=== PATIENT | male | born 2000 | race Caucasian/White ===

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

== ENCOUNTER → 2020-10-12 | Outpatient (CLI) | payer BC, SELFPAY ==
[2020-10-15 16:09] LABS: Chlamydia By Nucleic Acid AMP Positive (Negative)
[2020-10-15 20:48] LABS: Gonococcus By Nucleic Acid AMP Negative (Negative)
== END | disposition home or self-care (01) ==
LOC: LABSPEC 16:49
PROVIDERS: PCP Family Medicine; Visit Provider Registered Nurse
DX: Z20.2 Contact with and (suspected) exposure to infections with a predominantly sexual mode of transmission (principal)
CPT/HCPCS: 87491; 87591

== ENCOUNTER 2021-05-02 02:41 | Emergency (ER) | payer BC, SELFPAY ==
[2021-05-02 02:42] VITALS: BP 130/69; PULSE 113; RESP 18; TEMP 36.4; O2SAT 99; BMI 18.2
[2021-05-02 02:56] LABS: Bedside Glucose 264 mg/dL (74-106)
[2021-05-02 03:16] LABS: Absolute Lymphocyte Count 2.36 X10^3/uL (0.83-4.51); Absolute Neutrophil Count 2.6 X10^3/uL (2.0-7.7); Basophil# 0.05 X10^3/uL; Basophil% 0.9 % (0-1); Eosinophil# 0.29 X10^3/uL; Hematocrit 42.8 % (40-54); Hemoglobin 14.8 g/dL (13.0-16.5); Lymphocyte # 2.36 X10^3/ul (0.83-4.51); Lymphocyte % 40.8 % (19-41); Mean Corp Hgb Conc 34.6 g/dL (32-36); Mean Corpuscular Hgb 28.5 pg (27.0-32.0); Mean Corpuscular Volume 82.5 fL (80-94); Mean Platelet Vol. 9.4 fl (6.2-12.0); Monocyte# 0.43 X10^3/uL; Monocyte% 7.4 % (0-10); NRBC Flagged by Analyzer 0 % (0-5); Neutrophil # 2.63 X10^3/uL (2.7-7.7); Neutrophil % 45.4 % (47-70); Platelet Count 343 K/mm3 (150-450); RBC Distribution Width CV 12.3 % (11.6-14.6); RBC Distribution Width SD 36.9 fl (35.1-43.9); Red Blood Count 5.19 M/mm3 (4.6-6.2); White Blood Count 5.8 K/mm3 (4.4-11.0)
[2021-05-02] MEDS: Haloperidol Lactate 5 MG/ML Vial IV (03:17)
[2021-05-02] MEDS: 0.9% Normal Saline 1,000 ML 999 ML IV (03:17)
[2021-05-02 03:19] VITALS: BP 96/82; PULSE 106; RESP 16; O2SAT 100
[2021-05-02 03:29] LABS: Anion Gap 7 (5-15); BUN 13 mg/dL (7-18); BUN/Creat Ratio 14.4 RATIO (10-20); Calcium,Total 9.5 mg/dL (8.5-10.1); Chloride 105 mmol/L (98-107); EST Glomerular Filtration Rate 113 mL/min (>60); Est Glom Filt Rate - Afr Amer 137 mL/min (>60); Estimated Creatinine Clearance 118.45 ml/min; Glucose 263 mg/dL (74-106); Sodium Level 139 mmol/L (136-145)
--- NOTE | 2021-05-02 04:20 | EX.ED.DYSGE1 ---
HPI History of Present Illness Chief Complaint: Nausea/Vomiting Narrative Narrative: Patient is a 21-year-old male with history of type 1 diabetes on insulin pump. He states he went out with his friend to celebrate his birthday. He states he ended up taking #6 25 mg CBD Gummies. He states he did this within an hour and then as the night went on he developed sensations of nausea and vomiting. He denies any other sick contact or ingestion. He states he is concerned that his sugar may be off as he is diabetic and has been throwing up and therefore comes to the hospital for evaluation [facility] Medical History (Updated 05/02/21 @ 04:[address] Dung Eric, DO) Diabetes type 1, controlled Home Medications glucagon (human recombinant) 1 mg injection kit 1 mg IM ONCE 03/26/17 [History Last Taken Unknown] OneTouch Ultra Test #550 ea NS 04/11/17 [Rx Last Taken Unknown] FreeStyle Bianka 10 Day [place] #1 ea NS 09/16/17 [Rx Last Taken Unknown] FreeStyle Bianka 10 Day Sensor #3 ea NS 09/16/17 [Rx Last Taken Unknown] insulin aspart U-100 100 unit/mL subcutaneous solution See Rx Instructions SC QDAY #50 ml 04/26/18 [Rx Last Taken Unknown] Allergy/AdvReac Type Severity Reaction Status Date / Time No Known Allergies Allergy Verified 05/02/21 02:45 Family History Unknown Breast cancer Diabetes Hypertension High cholesterol Skin cancer CVA (cerebral vascular accident) Social History (Updated 04/26/18 @ 16:29 by Lora Blake ALTERATIONS MANAGER, ALTERATIONS MANAGER-C) Smoking Status: Never smoker second hand exposure: No alcohol intake: never substance use type: does not use ROS ROS ED Constitutional Constitutional ED: Denies chills or fever(s) ENT ENT ED: Denies sore throat Cardiovascular Cardiovascular: Denies chest pain Respiratory/Chest Respiratory/Chest: Denies cough or dyspnea Gastrointestinal Gastrointestinal: Reports nausea and vomiting; Denies abdominal pain or diarrhea Genitourinary Genitourinary ED: Denies dysuria Musculoskeletal Musculoskeletal: Denies myalgias Integumentary Denies rash Neurologic Neurologic: Denies headache(s) Psychiatric Psychiatric: Reports anxiety; Denies suicidal ideation or suicidal thoughts Hematologic/Lymphatic Hematologic/Lymphatic: Denies easy bleeding or easy bruising EXAM Physical Exam Const Vital Signs: 05/02/21 02:42 05/02/21 03:19 05/02/21 05:15 Temperature 97.6 F L Temperature Source Temporal Pulse Rate 113 H 106 H 90 Respiratory Rate 18 16 16 Blood Pressure 130/69 H 96/82 H 92/56 L Blood Pressure Mean 89 86 Pulse Ox 99 100 96 Oxygen Delivery Method Room Air Room Air Positive well nourished and well developed General Appearance ED: well developed HEENT Reports dry mucous membranes Mouth ED: Yes dry mucous membranes Mouth: dry mucous membranes Eyes EOMs intact bilaterally Eyes Narrative: Pupils are dilated and sluggish to respond Neck supple Resp normal respiratory effort and clear to auscultation bilaterally Cardio regular rhythm Rate: tachycardic GI non-tender and non-distended GI Narrative: Abdomen soft nontender nondistended with hyperactive bowel sounds no voluntary guarding or rigidity no pulsatile mass Palpation: soft Extremity normal to inspection Neuro oriented x3 and CN's II-XII intact bilaterally Sensorium / Orientation: alert Motor Exam: strength 5/5 throughout Psych Psych Narrative: Patient has a nervous/anxious affect Mood & Affect: anxious Skin no rashes or lesions noted MDM MDM MDM Narrative Medical decision making narrative: Patient presented to the ER in no acute distress but did have changes consistent with THC toxicity as he had dilated pupils tachycardic heart rate bouts of nausea vomiting and mild anxiety. Clinically this fits with his ingestion of CBD Gummies. However as he is a type I diabetic I did elect to perform basic laboratory studies. This shows a slightly elevated blood sugar at 264 but no signs of DKA. Patient was given a liter of fluid and 5 mg of Haldol and had resolution of symptoms and therefore is safe for discharge Lab Data Attestation: I reviewed the patient's lab results. Labs: Laboratory Results - last 24 hr 05/02/21 05/02/21 05/02/21 02:45 02:48 02:48 WBC 5.8 RBC 5.19 Hgb 14.8 Hct 42.8 MCV 82.5 MCH 28.5 MCHC 34.6 RDW Std Deviation 36.9 RDW Coeff of Jb 12.3 Plt Count 343 MPV 9.4 Immature Gran % (Auto) 0.500 Neut % (Auto) 45.4 L Lymph % (Auto) 40.8 [place] % (Auto) 7.4 Eos % (Auto) 5.0 Baso % (Auto) 0.9 Absolute Neuts (auto) 2.6 Absolute Lymphs (auto) 2.36 Nucleated RBC % 0 Sodium 139 Potassium 3.0 L Chloride 105 Carbon Dioxide 27.0 Anion Gap 7 BUN 13 Creatinine 0.90 Estim Creat Clear Calc 118.45 Est GFR (MDRD) Af Amer 137 Est GFR (MDRD) Non-Af 113 BUN/Creatinine Ratio 14.4 Glucose 263 H Calcium 9.5 Acetone Level POC Glucose 264 H 05/02/21 02:48 WBC RBC Hgb Hct MCV MCH MCHC RDW Std Deviation RDW Coeff of Jb Plt Count MPV Immature Gran % (Auto) Neut % (Auto) Lymph % (Auto) [place] % (Auto) Eos % (Auto) Baso % (Auto) Absolute Neuts (auto) Absolute Lymphs (auto) Nucleated RBC % Sodium Potassium Chloride Carbon Dioxide Anion Gap BUN Creatinine Estim Creat Clear Calc Est GFR (MDRD) Af Amer Est GFR (MDRD) Non-Af BUN/Creatinine Ratio Glucose Calcium Acetone Level NEGATIVE POC Glucose Discharge Plan Triage Chief Complaint: Nausea/Vomiting ED Provider: Dung Eric Dx/Rx/DC Orders Clinical Impression: Mild tetrahydrocannabinol (THC) abuse Instructions: Understanding Synthetic Marijuana, ED Potassium-Rich Foods Prescriptions: No Action glucagon (human recombinant) [Glucagon Emergency Kit (human)] 1 mg kit 1 mg IM ONCE RF: 0 (DME) flash glucose sensor [FreeStyle Bianka 10 Day Sensor] kit See Dose Instructions .ROUTE .MEDSUPPLY Qty: 3 RF: 11 (DME) flash glucose scanning reader [FreeStyle Bianka 10 Day [place]] misc See Dose Instructions .ROUTE .MEDSUPPLY Qty: 1 RF: 0 Novolog U-100 Insulin aspart 100 unit/mL solution See Rx Instructions SC QDAY Qty: 50 RF: 11 (DME) blood sugar diagnostic [OneTouch Ultra Test] strip See Dose Instructions .ROUTE .MEDSUPPLY Qty: 550 RF: 3 Primary Care Provider: Jose Haley Referrals: Jose Haley MD [Primary Care Provider] - Activity Restrictions/Additional Instructions: Please eat potassium rich foods as your value was slightly low today and otherwise follow-up with your family doctor and return to the ER should you have any further concerns Disposition Disposition: Home, Self Care Discharge Date/Time: 05/02/21 05:16
[2021-05-02 05:15] VITALS: BP 92/56; PULSE 90; RESP 16; O2SAT 96
== END 2021-05-02 05:16 | disposition home or self-care (01) ==
PROVIDERS: Emergency Provider Emergency Medicine; PCP Family Medicine; Visit Provider Emergency Medicine
DX: F12.10 Cannabis abuse, uncomplicated (principal); E10.65 Type 1 diabetes mellitus with hyperglycemia; R11.2 Nausea with vomiting, unspecified; Z96.41 Presence of insulin pump (external) (internal)
CPT/HCPCS: 80048; 82009; 82962; 85025; 96361; 96374; 99283; J7030; A4216

== ENCOUNTER 2023-09-10 17:33 | Emergency (ER) | payer BC, SELFPAY ==
[2023-09-10 17:33] VITALS: BP 107/81; PULSE 75; RESP 16; TEMP 36.6; O2SAT 100; BMI 18.9
--- NOTE | 2023-09-10 18:03 | ED.RN ---
1801[facility] REQUIR[facility] SCREEN AT THIS TIME. I SPOKE W/ FEREMAN AND WAS TOLD SHE WILL BE ON HER WAY.
--- NOTE | 2023-09-10 18:37 | ED.RN ---
NOT CLAIMING WORKERS COMP. HE DOES NOT WANT THE PAPERWORK
--- NOTE | 2023-09-10 19:01 | EDS_ITS ---
HPI <HIPOLITO Rose - Last Filed: 09/10/23 19:06> History of Present Illness Chief Complaint: Laceration Narrative Narrative: Patient is a 23-year-old male with history of type 1 diabetes who presents to the emergency department for a laceration to the left middle finger. Patient states that he works at [employer], when he woke up today, he was not feeling well like he might be coming down with a cold or a virus. Patient is he was somewhat dizzy today. When he was cutting, he cut a piece of his finger on a knife. Tetanus vaccination unknown. Patient is here for evaluation. Patient is once he saw the blood, he did feel slightly dizzy. PFS <HIPOLITO Rose - Last Filed: 09/10/23 19:06> [facility] Medical History (Updated 09/10/23 @ 23:[address] William Castillo MD) Diabetes type 1, controlled Home Medications ?Medication ?Instructions ?Recorded ?Last Taken ?Type glucagon (human recombinant) 1 mg 1 mg IM ONCE 03/26/17 Unknown History injection kit (Glucagon Emergency Kit (human-recomb)) OneTouch Ultra Test (blood sugar #550 ea 04/11/17 Unknown Rx diagnostic) FreeStyle Bianka 10 Day [place] #1 ea 09/16/17 Unknown Rx (flash glucose scanning reader) FreeStyle Bianka 10 Day Sensor #3 ea 09/16/17 Unknown Rx (flash glucose sensor) insulin aspart U-100 100 unit/mL See Rx Instructions subcut QDAY 04/26/18 Unknown Rx subcutaneous solution (Novolog e10.9 #50 mL U-100 Insulin aspart) Allergy/AdvReac Type Severity Reaction Status Date / Time shellfish derived Allergy Intermediate Angioedema Verified 09/10/23 17:34 Family History Unknown Breast cancer Diabetes Hypertension High cholesterol Skin cancer CVA (cerebral vascular accident) Social History (Updated 04/26/18 @ 16:29 by Lora Blake NP, JUMPBASTING LINING BASTER-C) Smoking Status: Never smoker second hand exposure: No alcohol intake: never substance use type: does not use ROS <HIPOLITO Rose - Last Filed: 09/10/23 19:06> ROS ED ROS Narrative Constitutional: Negative for fever, chills, weight loss, weakness Eyes: Negative for vision loss, vision change, double vision ENT: Negative for any sore throat, ear pain, congestion Cardiovascular: Negative for any chest pain, tightness, palpitations Respiratory: Negative for any cough, sputum production, hemoptysis, dyspnea, dyspnea on exertion, orthopnea Gastrointestinal: Negative for any abdominal pain, nausea, vomiting, diarrhea, constipation, blood in stool, blood in vomit : Negative for any urinary frequency, dysuria, retention, blood in urine Muscle skeletal: Negative for any neck pain, back pain Neurological: Negative for any headache, syncope, dizziness Skin: Negative for any rashes, itching, abrasions. Positive for avulsion laceration of the left middle finger Psychiatric: Negative for any depression, anxiety, stress, suicidal ideation, homicidal ideation Hematologic: Negative for any excessive bruising, easy bleeding EXAM <HIPOLITO Rose - Last Filed: 09/10/23 19:06> Physical Exam Narrative Exam Narrative: Vital signs reviewed. Extremities: No peripheral edema, no signs of gross trauma or deformity. Active full range of motion of all extremities. Patient has a small 0.5 cm avulsion like laceration that is superficial to the radial aspect of the pad of the left middle finger. There is no deep tissue injury. Patient is full range of motion. Neuro: Cranial nerves II through XII intact, no focal neurological deficits. Skin: Clean dry and intact with no rash, purpura, petechiae, vesicles or pustules. Backs/flank: No CVA tenderness, no midline spinal tenderness, no deformity. Psych: Normal mood and affect. No SI, HI or acute psychosis. Const Vital Signs: 09/10/23 17:33 09/10/23 19:08 Temperature 98 F 98.4 F Temperature Source Temporal Pulse Rate 75 75 Respiratory Rate 16 18 Blood Pressure 107/81 H 116/65 Blood Pressure Mean 89 82 Pulse Ox 100 100 Oxygen Delivery Method Room Air <Dr. William Castillo MD - Last Filed: 09/10/23 23:08> Physical Exam Const Vital Signs: 09/10/23 17:33 09/10/23 19:08 Temperature 98 F 98.4 F Temperature Source Temporal Pulse Rate 75 75 Respiratory Rate 16 18 Blood Pressure 107/81 H 116/65 Blood Pressure Mean 89 82 Pulse Ox 100 100 Oxygen Delivery Method Room Air MDM <HIPOLITO Rose - Last Filed: 09/10/23 19:06> [facility] Treatment and Re-Evaluation :: Differential diagnosis includes however is not limited to: Hypoglycemia, tendon injury, foreign body, simple laceration, avulsion injury Patient appears to be in no obvious distress vital signs are stable. Patient presents to the emergency department after cutting himself while at work. Patient also had some dizziness today, I did speak with the patient as well as the patient's mother. They do not want to pursue Worker's Comp. today. I offered the patient IV fluids however he states he just wants to eat and to go home. Patient did have a superficial avulsion laceration to the distal tip of the left middle finger, this was cleansed, glue was placed. Tolerated well. Patient will keep the area clean and dry. Instructed return for any worsening symptoms. Stable for discharge. <Dr. William Castillo MD - Last Filed: 09/10/23 23:08> [facility] Narrative Medical decision making narrative: I have personally performed a face to face assessment of the patient and have reviewed the NABEEL Note. I performed a substantive portion of the visit including all aspects of the following. My العلي findings include: History is accidentally cut his left middle finger tip with a knife work. He felt poorly when she saw the blood but is doing okay now. His blood pressure was a little high earlier but he states he got it down, and just wants his injury treated and does not want other testing. Exam is partial-thickness 0.5 cm laceration to the left fingertip, does not require repair. Dermabonded by PA, there is good skin edge apposition and no active bleeding, no signs of infection. Medical Decison Making I think this is adequate. Patient was advised that if the Dermabond wears off early he can continue dressing it with antibiotic and a Band-Aid. Do not think it needs repaired. We updated his tetanus he is comfortable with that plan. Other additions or changes: [None] Discharge Plan Triage Chief Complaint: Laceration ED Midlevel Provider: Rehan Manzano ED Provider: William Castillo Dx/Rx/DC Orders Clinical Impression: Finger laceration, Type 1 diabetes, Immunization, tetanus-diphtheria Instructions: ED Laceration, All Closures Prescriptions: No Action glucagon (human recombinant) [Glucagon Emergency Kit (human)] 1 mg kit 1 mg IM ONCE (DME) flash glucose sensor [FreeStyle Bianka 10 Day Sensor] kit See Dose Instructions .ROUTE .MEDSUPPLY Qty: 3 11RF Dose Instruction: As directed Rx Instructions: apply to back of arm to moniter BG. change q 10 days (DME) flash glucose scanning reader [FreeStyle Bianka 10 Day [place]] misc See Dose Instructions .ROUTE .MEDSUPPLY Qty: 1 0RF Dose Instruction: As directed Rx Instructions: use to moniter BG via sensor on back og arm Novolog U-100 Insulin aspart 100 unit/mL solution See Rx Instructions SC QDAY Qty: 50 11RF Dose Instruction: uses up to 30U qd via pump SC QDAY Rx Instructions: uses up to 50 U qd via pump SC QDAY (DME) blood sugar diagnostic [OneTouch Ultra Test] strip See Dose Instructions .ROUTE .MEDSUPPLY Qty: 550 3RF Dose Instruction: As directed Rx Instructions: use with device up to 6 times daily Primary Care Provider: Jose Haley Referrals: Jose Haely MD [Primary Care Provider] - Activity Restrictions/Additional Instructions: Keep the area clean and dry. Print Language: Tajik Disposition Disposition: Home, Self Care Discharge Date/Time: 09/10/23 19:09
[2023-09-10] MEDS: Diphth,Pertuss(Acell),Tet Vac 0.5 ML Vial IM (19:02)
[2023-09-10 19:08] VITALS: BP 116/65; PULSE 75; RESP 18; TEMP 36.9; O2SAT 100
== END 2023-09-10 19:09 | disposition home or self-care (01) ==
PROVIDERS: Emergency Provider Emergency Medicine; PCP Family Medicine; Visit Provider Emergency Medicine
DX: S61.213A Laceration without foreign body of left middle finger without damage to nail, initial encounter (principal); E10.9 Type 1 diabetes mellitus without complications; W26.0XXA Contact with knife, initial encounter; Y99.0 Civilian activity done for income or pay; Z23 Encounter for immunization
CPT/HCPCS: 90471; 90715; 99282

== ENCOUNTER 2024-09-26 00:13 | Emergency (ER) | payer BC, SELFPAY ==
[2024-09-26 00:14] VITALS: BP 112/74; PULSE 102; RESP 18; TEMP 36.6; O2SAT 100; BMI 18.8
--- NOTE | 2024-09-26 00:58 | CT_ITS ---
PROCEDURE: ABDOMEN/PELVIS W IV CONT ONLY 09/26/2024 REASON FOR EXAM: FLANK/RUQ PAIN TECHNIQUE: ABDOMEN/PELVIS W IV CONT ONLY Coronal and Sagittal reconstruction series were provided. CONTRAST: Isovue 300 VOLUME: 96 mL One or more dose reduction techniques were used (e.g., Automated exposure control, adjustment of the mA and/or kV according to patient size, use of iterative reconstruction technique. RADIATION DOSE SUMMARY: CTDlvol: 18 mGy DLP: 418 mGycm COMPARISON: No FINDINGS: Clear lung bases. Normal heart size. Unremarkable liver, gallbladder, pancreas, spleen, adrenal glands,. No hydronephrosis or ureteral stone. Normal bladder. Normal prostate. No retroperitoneal or pelvic adenopathy. Nondistended bowel. Normal appendix. Moderate stool. No acute abdominal wall findings. CT/Abdomen/Pelvis W IV Cont ONLY IMPRESSION: Moderate stool. Reading Location: [place] [id number]
--- NOTE | 2024-09-26 00:58 | CT_ITS ---
PROCEDURE: ABDOMEN/PELVIS W IV CONT ONLY 09/26/2024 REASON FOR EXAM: FLANK/RUQ PAIN TECHNIQUE: ABDOMEN/PELVIS W IV CONT ONLY Coronal and Sagittal reconstruction series were provided. CONTRAST: Isovue 300 VOLUME: 96 mL One or more dose reduction techniques were used (e.g., Automated exposure control, adjustment of the mA and/or kV according to patient size, use of iterative reconstruction technique. RADIATION DOSE SUMMARY: CTDlvol: 18 mGy DLP: 418 mGycm COMPARISON: No FINDINGS: Clear lung bases. Normal heart size. Unremarkable liver, gallbladder, pancreas, spleen, adrenal glands,. No hydronephrosis or ureteral stone. Normal bladder. Normal prostate. No retroperitoneal or pelvic adenopathy. Nondistended bowel. Normal appendix. Moderate stool. No acute abdominal wall findings. CT/Abdomen/Pelvis W IV Cont ONLY IMPRESSION: Moderate stool. Reading Location: [place] [id number]
--- NOTE | 2024-09-26 00:59 | EDS_ITS ---
HPI HPI - GI History of Present Illness Chief Complaint: Abd Pain Narrative Narrative: Patient is a 24-year-old male presenting to the emergency department for right upper quadrant and right sided flank pain. Past medical history of type 1 diabetes. Patient states it has been coming and going for the past few weeks but started tonight around 10 PM. Endorses nausea with no vomiting. Denies fever, chills, chest pain, dysuria or hematuria. He does endorse some constipation as well. Denies any known trauma, does not remember doing anything to pull a muscle. Reports no history of abdominal surgeries. [facility] Medical History (Updated 09/26/24 @ 02:[address] Jenniffer Estrella MD) Diabetes type 1, controlled Home Medications ?Medication ?Instructions ?Recorded ?Last Taken ?Type OneTouch Ultra Test (blood sugar #550 ea 04/11/17 Unkn own Rx diagnostic) FreeStyle Bianka 10 Day [place] #1 ea 09/16/17 Unknown R x (flash glucose scanning reader) FreeStyle Bianka 10 Day Sensor #3 ea 09/16/17 Unknown R x (flash glucose sensor) insulin aspart U-100 100 unit/mL See Rx Instructions s ubcut QDAY 04/26/18 Unknown Rx subcutaneous solution (Novolog e10.9 #50 mL U-100 Insulin aspart) glucagon 1 mg solution for mg 09/26/24 Unknown History injection (Glucagon Emergency Kit) Allergy/AdvReac Type Severity Reaction Status Date / Time shellfish derived Allergy Intermediate Angioedema Verified 09/26/24 00:13 Family History Unknown Breast cancer Diabetes Hypertension High cholesterol Skin cancer CVA (cerebral vascular accident) Social History Smoking Status: Current every day smoker tobacco type: e-cigarettes second hand exposure: No alcohol intake: never substance use type: does not use ROS ROS ED ROS Narrative See HPI EXAM Physical Exam Narrative Exam Narrative: Vital signs: Reviewed General: Alert and oriented. No acute distress HEENT: Head is normocephalic and atraumatic, sinuses nontender, pupils equal round and reactive. Nares are patent. Oropharynx and throat exams normal. Neck: Supple without lymphadenopathy nontender Cardiovascular: Regular rate and rhythm, no murmurs. No rubs or gallops. Normal S1 and S2 Respiratory: Clear to auscultation bilaterally. No wheezes, rales, rhonchi Abdominal: Soft and mildly tender to palpation in the right upper and middle quadrant. Normal bowel sounds. No guarding or rebound. Nonsurgical abdomen. No CVA tenderness to palpation. Extremities: No tenderness. No bruising. Normal range of motion. Normal sensation. Skin: No rash or redness. Neurological: Cranial nerves II through XII are grossly intact. Normal strength and sensation. Normal cerebellar function The rest of the physical exam is unremarkable Const Vital Signs: 09/26/24 00:14 09/26/24 02:00 09/26/24 02:45 Temperature 97.9 F 98.1 F Temperature Source Temporal Pulse Rate 102 H 82 82 Respiratory Rate 18 16 18 Blood Pressure 112/74 118/60 116/66 Blood Pressure Mean 86 79 82 Pulse Ox 100 100 98 Oxygen Delivery Method Room Air Room Air MDM MDM MDM Narrative Medical decision making narrative: Patient is a 24-year-old male presenting emergency department for abdominal pain. Patient was seen and examined. Vitals are stable. He is mildly tachycardic on evaluation 1 of 2. Resting bed comfortably no acute distress. Patient offered analgesia but declined. Was amenable to antiemetic, Zofran given. Differential includes but is not limited to: Cholecystitis, appendicitis, nephrolithiasis, pyelonephritis, UTI, muscle strain CBC with no leukocytosis and a normal hemoglobin. CMP with normal liver function. Lipase within normal limits. Normal kidney function. Hyperglycemia of 365, no anion gap and a normal carbon dioxide. No evidence of DKA. Fluid bolus given. Urinalysis with glucose consistent with his type 1 diabetes and glucose here. Otherwise no evidence of infection. CT shows moderate stool but no other significant findings. Patient was updated on the findings. I recommended a high-fiber diet along with Metamucil at home to have normal bowel movements. I notified him of his hyperglycemia and he states he will give himself insulin appropriately. Patient likely has abdominal pain possibly related to his constipation versus a muscle strain. Instructed to take Motrin and Tylenol at home. Your evaluation in the Emergency Department did not reveal any acute reason for admission. However, I want to emphasize that you may be early in the course of a disease process or illness even if it is not present. For this reason you should follow-up within 24 hours for reevaluation with either your primary care physician or if necessary back here in the Emergency Department. You should return to the Emergency Department immediately if your symptoms worsen or new symptoms develop. History & Record Review Discussion w/independent historian: Patient and Significant other Lab Data Attestation: I reviewed the patient's lab results. Labs: Laboratory Results - last 24 hr 09/26/24 09/26/24 00:52 02:25 WBC 4.6 RBC 4.82 Hgb 13.6 Hct 40.1 MCV 83.2 MCH 28.2 MCHC 33.9 RDW Std Deviation 37.2 RDW Coeff of Jb 12.2 Plt Count 273 MPV 9.7 Immature Gran % (Auto) 0.200 Neut % (Auto) 38.8 L Lymph % (Auto) 39.3 [place] % (Auto) 8.1 Eos % (Auto) 11.8 H Baso % (Auto) 1.8 H Absolute Neuts (auto) 1.8 L Absolute Lymphs (auto) 1.79 Nucleated RBC % 0 Sodium 136 Potassium 3.9 Chloride 100 Carbon Dioxide 23.5 Anion Gap 12 BUN 14 Creatinine 0.85 Estim Creat Clear Calc 125.95 Est GFR (MDRD) Non-Af 124 BUN/Creatinine Ratio 16.1 Glucose 365 H Calcium 9.8 Total Bilirubin 1.10 AST 20 ALT 18 Alkaline Phosphatase 91 Total Protein 7.5 Albumin 4.7 Globulin 2.8 Albumin/Globulin Ratio 1.7 Lipase 13 Urine Color Straw Urine Clarity Clear Urine pH 6.5 Ur Specific [place] 1.010 Urine Protein 30 H Urine Glucose (UA) 1000 H Urine Ketones Negative Urine Occult Blood Negative Urine Nitrite Negative Urine Bilirubin Negative Urine Urobilinogen Normal Ur Leukocyte Esterase Negative Urine RBC 0-5 SEEN Urine WBC 0-5 SEEN Ur Squamous Epith Cells 0-5 SEEN Urine Bacteria 0 SEEN Urine Mucus 0 SEEN Radiography Diagnostic Testing: Clinical Impression(s) from Imaging Studies Abdomen/Pelvis CT 09/26/24 00:58 IMPRESSION: Moderate stool. Reading Location: [place] [id number] Discharge Plan Triage Chief Complaint: Abd Pain ED Provider: Jenniffer Estrella Dx/Rx/DC Orders Clinical Impression: Abdominal pain Instructions: Abdominal Pain Prescriptions: No Action (DME) flash glucose sensor [FreeStyle Bianka 10 Day Sensor] kit See Dose Instructions .ROUTE .MEDSUPPLY Qty: 3 11RF Dose Instruction: As directed Rx Instructions: apply to back of arm to moniter BG. change q 10 days (DME) flash glucose scanning reader [FreeStyle Bianka 10 Day [place]] [facility] [place] See Dose Instructions .ROUTE .MEDSUPPLY Qty: 1 0RF Dose Instruction: As directed Rx Instructions: use to moniter BG via sensor on back og arm Novolog U-100 Insulin aspart 100 unit/mL solution See Rx Instructions SC QDAY Qty: 50 11RF Dose Instruction: uses up to 30U qd via pump SC QDAY Rx Instructions: uses up to 50 U qd via pump SC QDAY Glucagon Emergency Kit (human) 1 mg recon soln Patient Comments: INJECT (1)ONE MG FOR INSULIN SHOCK. (DME) blood sugar diagnostic [OneTouch Ultra Test] strip See Dose Instructions .ROUTE .MEDSUPPLY Qty: 550 3RF Dose Instruction: As directed Rx Instructions: use with device up to 6 times daily Primary Care Provider: Abiodun Paredes Referrals: Jose Haley MD [Non-Staff] - 2 Days Activity Restrictions/Additional Instructions: Your evaluation in the Emergency Department did not reveal any acute reason for admission. However, I want to emphasize that you may be early in the course of a disease process or illness even if it is not present. For this reason you should follow-up within 24 hours for reevaluation with either your primary care physician or if necessary back here in the Emergency Department. You should return to the Emergency Department immediately if your symptoms worsen or new symptoms develop. Print Language: [place] Disposition Disposition: Home, Self Care Discharge Date/Time: 09/26/24 02:48
[2024-09-26 01:04] LABS: Hematocrit 40.1 % (40-54); Hemoglobin 13.6 g/dL (13.0-16.5); Immature Granulocytes Count 0.010 X10^3/uL (0.0-0.0); Mean Corp Hgb Conc 33.9 g/dL (32-36); Mean Corpuscular Volume 83.2 fL (80-94); Mean Platelet Vol. 9.7 fl (6.2-12.0); NRBC Flagged by Analyzer 0 % (0-5); Platelet Count 273 K/mm3 (150-450); RBC Distribution Width CV 12.2 % (11.6-14.6); RBC Distribution Width SD 37.2 fl (35.1-43.9); Red Blood Count 4.82 M/mm3 (4.6-6.2); White Blood Count 4.6 K/mm3 (4.4-11.0)
[2024-09-26] MEDS: 0.9% Normal Saline (1000mL) 1,000 ML 1000 ML IV (01:04)
--- OUTSIDE RECORDS SUMMARY | 2024-09-26 01:18 | XMS RPT_ITS | CCD ---
Author Organization [facility] Care Team Providers Care Web Mobile Designer Name Role Phone [place] SWEATER OPERATOR, Amada K Unavailable Unavailable [place] SWEATER OPERATOR, Amada K Unavailable Unavailable Vick FARMWORKERS, Jennifer L Unavailable Unavailable Vick FARMWORKERS, Jennifer L Unavailable Unavailable Vick FARMWORKERS, Jennifer L Unavailable Unavailable Reggie CHANG, Danielle Szymanski Primary Care Provider Danielle Paredes MD Primary Care Provider Danielle Paredes MD Primary Care Provider William Castillo Attending Unavailable Jose Haley Primary Care Unavailable Danielle Paredes MD Primary Care Provider [phone] DANIELLE PAREDES Primary Care Unavailable DESI GARCÍA Attending Unavailable Allergies Allergy Classification Reported Allergen(s) Allergy Type Date of Onset Reaction(s) Facility (1 source) Shellfish Drug allergy (disorder) 09-10-2023 [facility] Repository Medications Current Medications Medication Drug Class(es) Dates Sig (Normalized) Sig (Original) [id number] 0.3 ml EPINEPHrine 1 mg/ml auto-injector (14 sources) alpha-Adrenergic Agonist, beta-Adrenergic Agonist, Catecholamine Start: 11-29-2019 EPINEPHrine (EPIPEN 2-KELLY) 0.3 mg/0.3 mL auto-injector Indications: Allergic reaction, initial encounter Inject 0.3 mL intramuscularly as needed. 2 Each 1 11/29/2019 Active Comment on above: Inject 0.3 mL intram uscularly as needed. glucagon 3 mg nasal powder (18 sources) Antihypoglycemic Agent Start: 04-29-2022 End: 08-10-2024 glucagon (BAQSIMI) 3 mg/actuation nasal spray Indications: Type 1 diabetes mellitus without complication (HCC) Use 1 spray in the nose as needed for low blood sugar. May repeat after 15 minutes using a new device if there is no response. 2 each 2 08/10/2024 Active Start: 12-25-2020 End: 04-29-2022 glucagon (GLUCAGON EMERGENCY KIT, HUMAN,) 1 mg injection Indications: Type 1 diabetes mellitus without complication (HCC) Inject (1)one mg for insulin shock. 2 Each 1 12/25/2020 04/29/2022 Discontinued Start: 09-25-2016 End: 12-26-2024 GLUCAGON EMERGENCY 1 MG KIT Use in case of inability to swallow or unconscious with severe hypoglycemia GLUCAGON (RDNA) [id number] Lora Blake [employer]INEER[employer] Comment on above: Inject (1)one mg for insulin shock. Use 1 [place] in the n ose as needed for low blood sugar. May repeat after 15 minutes using a new device if there is no response. 3 ml insulin glargine 100 unt/ml pen injector (16 sources) Insulin Analog Start: 08-10-2024 insulin glargine (BASAGLAR KWIKPEN U-100 INSULIN) 100 unit/mL (3 mL) Indications: Type 1 diabetes mellitus without complication (HCC) Inject 28 units subcutaneously daily if insulin pump fails 15 mL 1 08/10/2024 Active Start: 04-29-2022 insulin glargi ne (BASAGLAR KWIKPEN U-100 INSULIN) 100 unit/mL (3 mL) Indications: Type 1 diabetes mellitus without complication (HCC) Inject 26 units subcutaneously daily if insulin pump fails 15 mL 1 04/29/2022 Active Start: 12-25-2020 End: 08-10-2024 insulin glargine (BASAGLAR K WIKPEN U-100 INSULIN) 100 unit/mL (3 mL) Indications: Type 1 diabetes mellitus without complication (HCC) Inject 26 units subcutaneously daily if insulin pump fails 15 mL 1 04/29/2022 08/10/2024 Discontinued Start: 11-03-2019 End: 12-25-2020 insulin glargine (BASAGLAR K WIKPEN U-100 INSULIN) 100 unit/mL (3 mL) Inject 38 units subcutaneously if insulin pump fails 15 mL 1 11/03/2019 12/25/2020 Discontinued Comment on above: Inject 26 units subc utaneously daily if insulin pump fails insulin aspart, human 100 unt/ml injectable solution (20 sources) Insulin Analogue Start: 05-03-2021 End: 08-10-2024 NOVOLOG U-100 INSULIN ASPART 100 unit/mL Indications: Type 1 diabetes mellitus without complication (HCC) Inject up to 100 units daily in insulin pump 90 mL 3 08/10/2024 Active Start: 11-03-2019 End: 12-25-2020 insulin aspart U-100 (NOVOLO G U-100 INSULIN ASPART) 100 unit/mL up to 60 units daily in insulin pump 90 mL 3 11/03/2019 12/25/2020 Discontinued Start: 06-24-2016 End: 09-24-2024 NOVOLOG 100 UNIT/ML SOLN Use s up to 30 units daily in insulin pump INSULIN ASPART [id number] Lora Blake NP Start: 06-24-2016 End: 06-24-2016 NOVOLOG 100 UNIT/ML SOLN Use 4-5 times and as needed with insulin pump. INSULIN ASPART [id number] Amada Rice CMA Start: 06-24-2016 End: 09-24-2024 NOVOLOG 100 UNIT/ML SOLN Use s up to 30 units daily in insulin pump INSULIN ASPART [id number] Lora Blake NP Start: 06-24-2016 End: 06-24-2016 NOVOLOG 100 UNIT/ML SOLN Use 4-5 times and as needed with insulin pump. INSULIN ASPART [id number] Lora Blake NP Start: 06-24-2016 NOVOLOG 100 UN IT/ML SOLN Use 4-5 times and as needed with insulin pump. INSULIN ASPART [id number] Amada Rice CMA NOVOLOG 100 UNIT /ML SOLN Use 4-5 times and as needed with insulin pump. INSULIN ASPART [id number] Dana Weaver LPN Comment on above: Inject up to 100 uni ts daily in insulin pump SUBCUTANEOUS INSULIN PUMP (MEDTRONIC MINIMED INSULIN MISC) (14 sources) SUBCUTANEOUS INS ULIN PUMP (MEDTRONIC MINIMED INSULIN MISC) Indications: Uncontrolled type 1 diabetes mellitus Active SUBCUTANEOUS INS ULIN PUMP (MEDTRONIC MINIMED INSULIN MISC) Completed/Discontinued Medications Medication Drug Class(es) Dates Sig (Normalized) Sig (Original) flash glucose scanning reader (FREESTYLE BIANKA 14 DAY READER) (1 source) Start: 11-03-2019 End: 12-25-2020 flash glucose scanning reader (FREESTYLE BIANKA 14 DAY READER) Use 4x daily and PRN, IDDM, E10.9 1 Each 11/03/2019 12/25/2020 Discontinued flash glucose sensor (FREESTYLE BIANKA 14 DAY SENSOR) kit (1 source) Start: 11-03-2019 End: 12-25-2020 flash glucose sensor (FREESTYLE BIANKA 14 DAY SENSOR) kit Use one sensor every 14 days, IDDM, E10.9 2 Each 5 11/03/2019 12/25/2020 Discontinued glucagon (GLUCAGEN) 1 mg solr (1 source) Start: 11-03-2019 End: 12-25-2020 inject 1 mg by intramuscular injection once glucagon (GLUCAGEN) 1 mg solr Inject 1 mg intramuscularly one time only for 1 dose. 1 mg 11/03/2019 12/25/2020 Discontinued Problems Active Problems Problem Classification Problem Date Documented Date Episodic/Chronic Abdominal pain (1 source) Stomach ache; Translations: [Unspecified abdominal pain] Episodic Diabetes mellitus without complication (20 sources) Type 1 diabetes mellitus; Translations: [Type 1 diabetes mellitus without complication] Onset: 05-19-2016 05-19-2016 Chronic Open wounds of extremities (1 source) Laceration without foreign body of left middle finger without damage to nail, initial encounter; Translations: [Laceration without foreign body of left middle finger without damage to nail, initial encounter] Onset: 09-24-2023 Episodic Other disorders of stomach and duodenum (1 source) Stomach problem; Translations: [Disease of stomach and duodenum, unspecified] 10-23-2022 Episodic Other non-traumatic joint disorders (1 source) Pain in right knee; Translations: [Pain in joint, lower leg] 05-07-2020 Episodic Residual codes; unclassified (3 sources) Noncompliance with treatment; Translations: [Poor compliance] Episodic Residual codes; unclassified (1 source) Influenza-like symptoms; Translations: [Other general symptoms and signs] Episodic Spondylosis; intervertebral disc disorders; other back problems (1 source) Acute low back pain; Translations: [Acute bilateral low back pain without sciatica] Episodic Unclassified (3 sources) Insertion of insulin pump; Translations: [Presence of insulin pump (external) (internal)] Onset: 05-19-2016 05-19-2016 Unclassified (1 source) Poor compliance; Translations: [Poor compliance] Onset: 08-10-2024 Past or Other Problems Problem Classification Problem Date Documented Da te Episodic/Chronic Diabetes mellitus without complication (20 sources) Presence of insulin pump (external) (internal); Translations: [Insulin pump present] Onset: 05-19-2016 05-19-2016 Episodic Results Test Name Value Interpretation Reference Range Facility CNOV 08-10-2024 CNOV Office Visit (ENDMED) JOSE CASTRO ([id number]) 00 M Date Time Provider Department 08/10/24 11:00 AM DESI GARCÍA During your visit today, we recorded the following information about you: Pulse Respiration Blood pressure Weight 88/minute 16/minute 96/60 69 kg Height 1.88 m Desi García APRN.CNP 08/10/2024 12:44 PM Signed Reason for Consultation: DM Type 1 Referring Physician: Doris Victoria APRN.STORE SALES MANAGER [address] [address] HISTORY OF PRESENT ILLNESS Mr. Castro is a 24 year old male presenting here today for a follow up of DM Type 1. As I recall, he was initially diagnosed with diabetes 2004 (age 5). LV 05/29/23 A1C today is 10.8. Down from 12.7 in 05/2023 Not using CGM --states it was falling off Needs BMV form completed today. Denies MVA due to hypoglycemia Reports an eye exam in the last. Denies retinopathy. 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 Sleep 6-7 AM to 2-3 pm. Working 10 pm to 6 AM. Current diabetes regimen is as follows: Basal insulin for back up:basaglar Glucagon: yes Novolog via Medtronic 770 pump with Guardian 3 CGM --not using CGM CGM Pump settings. 00:00= 1.20 2330=1.40 Bolus: Insulin:carb ratio 00:00= 10 1030=10 1400=8 Sensitivity 00:00= 60 Blood glucose target 00:00= 181-211 3140= 100-120 Insulin duration= 3 hr Pump download Auto mode =0% Not using his CGM Site change every 9 days Entering 0-2 BG readings daily. Mostly 0. Bolused for meals 3 times in 14 days. Most activity is in the 3 days leading up to his office visit. he is checking his blood glucose 0-2 times daily. he does bring a log book today for review. LDE Blood Sugar Frequency: 126, 107-- overnight 179, 143, 266, 178, 214, 193 during the day *8 BG readings in 14 days Hypoglycemia frequency: rare Hypoglycemia awareness: Yes Regarding symptoms of hypoglycemia, he is not experiencing any symptoms such as polyuria, polydipsia, nocturia or rapid weight loss or blurry vision, Overall, the patient has no acute complaints at this time. PAST MEDICAL HISTORY Diagnosis Date Insulin pump status 12/22/2018 Type I (juvenile type) diabetes mellitus without mention of complication, uncontrolled No past surgical history on file. FAMILY HISTORY Problem Relation Age of Onset Heart Father Hypertension Maternal Grandmother Cancer Other k Social History Tobacco Use Smoking status: Never Smokeless tobacco: Never Vaping Use Vaping status: Never Used Substance Use Topics Alcohol use: Not Currently Drug use: Never Allergies As of Date: 08/10/2024 (No Known Allergies) Fully Assessed 08/10/2024 Current Outpatient Medications Medication Sig Dispense Refill NOVOLOG U-100 INSULIN ASPART 100 unit/mL Inject up to 100 units daily in insulin pump 90 mL 3 Lancets Use as instructed 3 lancets daily, IDDM, E 10.9 400 Each 3 blood sugar diagnostic (ACCU-CHEK GUIDE TEST STRIPS) test strip Use as instructed; use 4 strips per day, IDDM, E 10.9 150 Strip 11 Insulin [place], Disposable, (BD ULTRAFINE III MINI PEN) 31 gauge x 3/16 Use one daily with insulin if insulin pump fails 50 Each 1 insulin glargine (BASAGLAR KWIKPEN U-100 INSULIN) 100 unit/mL (3 mL) Inject 26 units subcutaneously daily if insulin pump fails 15 mL 1 glucagon (BAQSIMI) 3 mg/actuation nasal spray Use 1 [place] in the nose as needed for low blood sugar. May repeat after 15 minutes using a new device if there is no response. 2 Each 2 EPINEPHrine (EPIPEN 2-KELLY) 0.3 mg/0.3 mL auto-injector Inject 0.3 mL intramuscularly as needed. (Patient not taking: Reported on 04/29/2022) 2 Each 1 SUBCUTANEOUS INSULIN PUMP (MEDTRONIC MINIMED INSULIN MISC) No current facility-administere d medications for this visit. REVIEW OF SYSTEMS Answers submitted by the patient for this visit: Core Review of Systems (Submitted on 08/10/2024) Fever : No Night sweats: No Recent unintentional weight change: No Nasal Congestion: No Hearing Loss: No Vision Disturbance: No A cough: No Difficulty Breathing?: No Chest pain: No Irregular heartbeat: No Leg Swelling: No Nausea: No Diarrhea: No Black tarry stools: No Difficulty Urinating?: No Awaken at Night More Than Once to Urinate?: No Joint pain or stiffness: No Muscle aches: No Leg or Foot Discomfort at Night?: No A rash: No Dizziness: No Headaches: No Memory Loss: No Seizures: No PHYSICAL EXAMINATION BP 96/60 Pulse 88 Resp 16 Ht 188 cm (6' 2.02) Wt 69 kg (152 lb 1.9 oz) SpO2 97% BMI 19.52 kg/m2 Physical Exam Constitutional: Appearance: Normal appearance. Cardiovascular: Rate and Rhythm: Normal rate and regular rhythm. Pulmonary: Effort: Pulmonary effort is normal. Breath sounds: Normal breath sounds. Skin: General: Skin is warm and dry. Neurological: Mental (more content not included)... Normal [facility] Bar 08-10-2024 CNPN Telephone ([employer]) JOSE CASTRO ([id number]) 00 M Date Time Provider Department 08/10/24 DESI GARCÍA ENDMED During your visit today, we recorded the following information about you: Desi García APRN.CNP 08/10/2024 12:38 PM Signed BMV form completed. Please fax to BMV. Keep a copy for EMR Thank you Katerina Crawford RN 08/11/2024 1:10 PM Signed BMV form faxed to the [facility]. Copy made and sent to scanning and another copy was made an put in our file. Closed Allergies As of Date: 08/10/2024 (No Known Allergies) Date Reviewed: 08/10/2024 Reviewed by: Desi García APRN.CNP - Fully Assessed Reason for Visit: BMV form [Other] Prescriptions as of 08/11/2024 - blood sugar diagnostic (ACCU-CHEK GUIDE TEST STRIPS) test strip Use as instructed; use 4 strips per day, IDDM, E 10.9 - glucagon (BAQSIMI) 3 mg/actuation nasal spray Use 1 spray in the nose as needed for low blood sugar. May repeat after 15 minutes using a new device if there is no response. - insulin glargine (BASAGLAR KWIKPEN U-100 INSULIN) 100 unit/mL (3 mL) Inject 28 units subcutaneously daily if insulin pump fails - Insulin [place], Disposable, (BD ULTRAFINE III MINI PEN) 31 gauge x 3/16 Use one daily with insulin if insulin pump fails - Lancets Use as instructed 3 lancets daily, IDDM, E 10.9 - NOVOLOG U-100 INSULIN ASPART 100 unit/mL Inject up to 100 units daily in insulin pump - EPINEPHrine (EPIPEN 2-KELLY) 0.3 mg/0.3 mL auto-injector Inject 0.3 mL intramuscularly as needed. - SUBCUTANEOUS INSULIN PUMP (MEDTRONIC MINIMED INSULIN MISC) Problem List As Of Date 08/10/2024 Noted Resolved Insulin pump status [Z96.41] 12/22/2018 Type 1 diabetes mellitus without complication (*11/03/2019 Encounter Status:Closed by KATERINA CRAWFORD on 08/11/24 Normal [facility] HEMOGLOBIN A1C (POC)on 08-10 HbA1c (Bld) [Mass fraction] 10.8 % Abnormal 4.3 - 5.6 % [facility] Comment on above: Location:[facility], [address] [place], [address] Point of care (POC) Hemoglobin A1c (HGBA1C) testing is intended to assess glucose control and provide a management tool for patients known to have diabetes and their healthcare providers. Target HGBA1C levels may depend on specific clinical circumstances. POC HGBA1C is not intended for use as a diagnostic or screening test; laboratory-based testing should be used for diagnostic purposes. The following information is supplemental and may not be applicable to specific diabetes management situations: The POC device back shoe operator provides a normal range of 4.2% to 6.5% for the HGBA1C POC test. However, the [place] [employer] guidelines indicate that patients with HGBA1C in the range of 5.7% to 6.4% are at increased risk for development of diabetes and that intervention by lifestyle modification may be beneficial. A HGBA1C level greater than or equal to 6.5% is considered diagnostic of diabetes, pending confirmatory testing. Use of HGBA1C testing to evaluate glucose control may not be appropriate for patients with hemoglobin variants or other conditions (e.g. anemia) that alter red blood cell lifespan. Interpretation and review of laboratory results [facility] JOSE CASTRO ([id number]) 00 M Date Time Provider Department 04/01/24 DESI GARCÍA During your visit today, we recorded the following information about you: Nerissa Ruiz MA 04/01/2024 12:18 PM Signed Form on docs desk/basket for review from: [employer] Please review and sign. Needs to be faxed to: [phone] Last office notes attached. Desi García APRN.[place] 04/01/2024 3:09 PM Signed Form signed. Thank you Jarrod Faulkner MA 04/01/2024 3:54 PM [facility]igned [facility] on April 01, [facility]24; transmission ok. Allergies As of Date: 04/01/2024 (No Known Allergies) Date Reviewed: 05/29/2023 Reviewed by: Desi García APRN.STORE SALES MANAGER - Fully Assessed Reason for Visit: Certificate of Medical Necessity [Other] Cmt: Medtronic Prescriptions as of 04/01/2024 - NOVOLOG U-100 INSULIN ASPART 100 unit/mL Inject up to 100 units daily in insulin pump - Lancets Use as instructed 3 lancets daily, IDDM, E 10.9 - blood sugar diagnostic (ACCU-CHEK GUIDE TEST STRIPS) test strip Use as instructed; use 4 strips per day, IDDM, E 10.9 - Insulin [place], Disposable, (BD ULTRAFINE III MINI PEN) 31 gauge x 3/16 Use one daily with insulin if insulin pump fails - insulin glargine (BASAGLAR KWIKPEN U-100 INSULIN) 100 unit/mL (3 mL) Inject 26 units subcutaneously daily if insulin pump fails - glucagon (BAQSIMI) 3 mg/actuation nasal spray Use 1 [place] in the nose as needed for low blood sugar. May repeat after 15 minutes using a new device if there is no response. - EPINEPHrine (EPIPEN 2-KELLY) 0.3 mg/0.3 mL auto-injector Inject 0.3 mL intramuscularly as needed. - SUBCUTANEOUS INSULIN PUMP (MEDTRONIC MINIMED INSULIN MISC) Problem List As Of Date 04/01/2024 Noted Resolved Insulin pump status [Z96.41] 12/22/2018 Type 1 diabetes mellitus without complication (*11/03/2019 Encounter Status:Closed by JARROD FAULKNER on 04/01/24 [facility] Bar 10-26-2023 RAMSEY Telephone ([employer]) JOSE CASTRO ([id number]) 00 M Date Time Provider Department 10/26/23 DESI GARCÍA During your visit today, we recorded the following information about you: Lukasz Marcano MA 10/26/2023 11:12 AM Signed Form on docs desk/basket for review from [employer]. Please review and sign. Needs to be faxed to [phone]. Attached last office notes. RX for Pump, Diabetic Supplies, and Transmitter/Sensor 4 Desi García APRN.[place] 10/27/2023 7:45 AM Signed Form signed. Thank you Lukasz Marcano MA 10/27/2023 8:07 AM Signed Form Faxed, Transmission ok CLOSED Allergies As of Date: 10/26/2023 (No Known Allergies) Date Reviewed: 05/29/2023 Reviewed by: Desi García APRN.STORE SALES MANAGER - Fully Assessed Reason for Visit: Med[employer] Form [Other] Cmt: RX for Pump, Diabetic Supplies, and Transmitter/Sensor 4 Prescriptions as of 10/27/2023 - NOVOLOG U-100 INSULIN ASPART 100 unit/mL Inject up to 100 units daily in insulin pump - Lancets Use as instructed 3 lancets daily, IDDM, E 10.9 - blood sugar diagnostic (ACCU-CHEK GUIDE TEST STRIPS) test strip Use as instructed; use 4 strips per day, IDDM, E 10.9 - Insulin [place], Disposable, (BD ULTRAFINE III MINI PEN) 31 gauge x /16 Use one daily with insulin if insulin pump fails - insulin glargine (BASAGLAR KWIKPEN U-100 INSULIN) 100 unit/mL (3 mL) Inject 26 units subcutaneously daily if insulin pump fails - glucagon (BAQSIMI) 3 mg/actuation nasal spray Use 1 [place] in the nose as needed for low blood sugar. May repeat after 15 minutes using a new device if there is no response. - EPINEPHrine (EPIPEN 2-KELLY) 0.3 mg/0.3 mL auto-injector Inject 0.3 mL intramuscularly as needed. - SUBCUTANEOUS INSULIN PUMP (MEDTRONIC MINIMED INSULIN MISC) Problem List As Of Date 10/26/2023 Noted Resolved Insulin pump status [Z96.41] 12/22/2018 Type 1 diabetes mellitus without complication (*11/03/2019 Encounter Status:Closed by LUKASZ MARCANO on 10/27/23 Normal [facility] Emergency Department Summary on 09-10-2023 Emergency Department Summary [facility] Medical Records Department [address] [place] [address] Emergency Department Summary 09/10/23 MR#: [id number] Acct: [id number] Name: JOSE CASTRO Rep #: [id number] : 2000 23 From: William Castillo MD PCP: Dr. Jose Haley MD Status:DEP ER Location: ED HPI History of Present Illness Chief Complaint: Laceration Narrative Narrative: Patient is a 23-year-old male with history of type 1 diabetes who presents to the emergency department for a laceration to the left middle finger. Patient states that he works at [employer], when he woke up today, he was not feeling well like he might be coming down with a cold or a virus. Patient is he was somewhat dizzy today. When he was cutting, he cut a piece of his finger on a knife. Tetanus vaccination unknown. Patient is here for evaluation. Patient is once he saw the blood, he did feel slightly dizzy. [facility] Medical History (Updated 09/10/23 @ 23:[address] William Castillo MD) Diabetes type 1, controlled Home Medications ???Medication ???Instructions ???Recorded ???Last Taken ???Type glucagon (human recombinant) 1 mg 1 mg IM ONCE 03/26/17 Unknown History injection kit (Glucagon Emergency Kit (human-recomb)) OneTouch Ultra Test (blood sugar #550 ea 04/11/17 Unknown Rx diagnostic) FreeStyle Bianka 10 Day [place] #1 ea 09/16/17 Unknown Rx (flash glucose scanning reader) FreeStyle Bian[place] 10 Day Sensor #3 ea 09/16/17 Unknown Rx (flash glucose sensor) insulin aspart U-100 100 unit/mL See Rx Instructions subcut QDAY 04/26/18 Unknown Rx subcutaneous solution (Novolog e10.9 #50 mL U-100 Insulin aspart) Allergy/AdvReac Type Severity Reaction Status Date / Time shellfish derived Allergy Intermediate Angioedema Verified 09/10/23 17:34 Family History Unknown Breast cancer Diabetes Hypertension High cholesterol Skin cancer CVA (cerebral vascular accident) Social History (Updated 04/26/18 @ 16:29 by Lora Blake INDUSTRIAL ENGINEERING, INDUSTRIAL ENGINEERING-C) Smoking Status: Never smoker second hand exposure: No alcohol intake: never substance use type: does not use ROS ROS ED ROS Narrative Constitutional: Negative for fever, chills, weight loss, weakness Eyes: Negative for vision loss, vision change, double vision ENT: Negative for any sore throat, ear pain, congestion Cardiovascular: Negative for any chest pain, tightness, palpitations Respiratory: Negative for any cough, sputum production, hemoptysis, dyspnea, dyspnea on exertion, orthopnea Gastrointestinal: Negative for any abdominal pain, nausea, vomiting, diarrhea, constipation, blood in stool, blood in vomit : Negative for any urinary frequency, dysuria, retention, blood in urine Muscle skeletal: Negative for any neck pain, back pain Neurological: Negative for any headache, syncope, dizziness Skin: Negative for any rashes, itching, abrasions. Positive for avulsion laceration of the left middle finger Psychiatric: Negative for any depression, anxiety, stress, suicidal ideation, homicidal ideation Hematologic: Negative for any excessive bruising, easy bleeding EXAM Physical Exam Narrative Exam Narrative: Vital signs reviewed. Extremities: No peripheral edema, no signs of gross trauma or deformity. Active full range of motion of all extremities. Patient has a small 0.5 cm avulsion like laceration that is superficial to the radial aspect of the pad of the left middle finger. There is no deep tissue injury. Patient is full range of motion. Neuro: Cranial nerves II through XII intact, no focal neurological deficits. Skin: Clean dry and intact with no rash, purpura, petechiae, vesicles or pustules. Backs/flank: No CVA tenderness, no midline spinal tenderness, no deformity. Psych: Normal mood and affect. No SI, HI or acute psychosis. Const Vital Signs: 09/10/23 17:33 09/10/23 19:08 Temperature 98 F 98.4 F Temperature Source Temporal Pulse Rate 75 75 Respiratory Rate 16 18 Blood Pressure 107/81 H 116/65 Blood Pressure Mean 89 82 Pulse Ox 100 100 Oxygen Delivery Method Room Air Physical Exam Const Vital Signs: 09/10/23 17:33 09/10/23 19:08 Temperature 98 F 98.4 F Temperature Source Temporal Pulse Rate 75 75 Respiratory Rate 16 18 Blood Pressure 107/81 H 116/65 Blood Pressure Mean 89 82 Pulse Ox 100 100 Oxygen Delivery Method Room Air MDM MDM Treatment and Re-Evaluation :: Differential diagnosis includes however is not limited to: Hypoglycemia, tendon injury, foreign body, simple laceration, avulsion injury Patient appears to be in no obvious distress vital signs are stable. Patient presents to the emergency department after cutting himself while at work. Patient al (more content not included)... Normal [facility] HEMOGLOBIN A1C (POC)on 05-28 HbA1c (Bld) [Mass fraction] 12.7 % Abnormal 4.3 - 5.6 % [facility] UA DIP, URINE (POC)on 2022 BILIRUBIN UA (POCT) Negative Negative [facility] CLARITY UA (POCT) Clear [facility] COLOR UA (POCT) Yellow [facility] GLUCOSE UA (POCT) 100 mg/dL Abnormal Negative mg/dL [facility] HEMOGLOBIN/BLOOD UA (POCT) Negative Negative [facility] KETONE UA (POCT) Negative Negative mg/dL [facility] LEUKOCYTES UA (POCT) Negative Negative [facility] NITRITE UA (POCT) Negative Negative [facility] PH UA (POCT) 6.0 4.5 - 8.0 [facility] Protein Ql (U) Trace Abnormal Negative mg/dL [facility] SPECIFIC GRAVITY UA (POCT) 1.025 1.005 - 1.030 [facility] UROBILINOGEN UA (POCT) 0.2 E.U./dL Normal E.U./dL [facility] HEMOGLOBIN A1C (POC)on 04-29 HbA1c (Bld) [Mass fraction] 10.2 % Abnormal 4.2 - 5.6 % [facility] XR Knee - right 4 Viewson IMPRESSION: No acute fracture or malalignment. Lay Up Operator: DARON Transcribe Date/Time: May 07 2020 8:47P Dictated by : KULWINDER COYLE MD This examination was interpreted and the report reviewed and electronically signed by: KULWNIDER COYLE MD on May 07 2020 8:49PM [facility] DIVISION OF RADIOLOGY * * *Final Report* * * DATE OF EXAM: May 07 2020 8:20PM WOX [id number] - XR KNEE 4V AP/PA BOTH+LAT/MANUELITO RT / PROCEDURE REASON: Acute pain of right knee * * * * Physician Interpretation * * * * Bilateral KNEE X-RAY SERIES HISTORY: Acute pain of right knee TECHNIQUE: 4 views of the right knee and 3 views of the left knee COMPARISON: None available. RESULT: No fracture, dislocation or destructive changes. Joint spaces and articular surfaces are preserved. DIVISION OF RADIOLOGY Provider, [facility] - 05/07/2020 * * *Final Report* * * DATE OF EXAM: May 07 2020 8:20PM WOX [id number] - XR KNEE 4V AP/PA BOTH+LAT/MANUELITO RT / PROCEDURE REASON: Acute pain of right knee * * * * Physician Interpretation * * * * Bilateral KNEE X-RAY SERIES HISTORY: Acute pain of right knee TECHNIQUE: 4 views of the right knee and 3 views of the left knee COMPARISON: None available. RESULT: No fracture, dislocation or destructive changes. Joint spaces and articular surfaces are preserved. IMPRESSION IMPRESSION: No acute fracture or malalignment. Lay [facility] Transcribe Date/Time: May 07 2020 8:47P Dictated by : KULWINDER COYLE MD This examination was interpreted and the report reviewed and electronically signed by: KULWINDER COYLE MD on May 07 2020 8:49PM [facility] Radiology Study observation (narrative) [facility] XR Knee - right 4 ViewsOrder ed By: [facility] Provider on 05-07-2020 [facility] Office Visiton 09-25-2016 Protein mass conc Done [facility] Work Phone: Office Visit: Transition of care- [facility] 05-19-2016 Adolescent depression screening assessment Adolescent depression screening assessment Invalid Interpretation Code [facility] Work Phone: Adult depression screening assessment Adolescent depression screening assessment [facility] Work Phone: Documentation of current medications (procedure) Done Invalid Interpretation Code [facility] Work Phone: Fall risk assessment No [facility] Work Phone: Protein mass conc Done [facility] Work Phone: Tobacco smoking status NHIS Never [facility] Work Phone: Tobacco smoking status TXIS Never smoker [facility] Work Phone: Tobacco use [facility] Never smoker Invalid Interpretation Code [facility] Work Phone: Chart Maintenanceon 06-21-19 16 Cholesterol 183 mg/dL [facility] Work Phone: HbA1c 11.5 % [facility] Work Phone: HDL Cholesterol 64 mg/dL [facility] Work Phone: LDL Cholesterol 103 mg/dL [facility] Work Phone: Thyroid stimulating hormone (TSH) 1.530 u[iU]/mL [facility] Work Phone: Triglyceride 78 mg/dL [facility] Work Phone: Vital Signs Date Time Vital Sign Value Performing Clinician Facility 08-10-2024 11:05-0400 Body height 188 cm [facility] HADOOP ADMINISTRATOR.[employer] Work Phone: [facility] 08-10-2024 11:05-0400 Body mass index (BMI) [Ratio] 19.52 kg/m2 [facility] HADOOP ADMINISTRATOR.STORE SALES MANAGER Work Phone: [facility] 08-10-2024 11:05-0400 Body weight 69 kg [facility] HADOOP ADMINISTRATOR.STORE SALES MANAGER Work Phone: [facility] 08-10-2024 11:05-0400 Diastolic blood pressure 60 mm[Hg] [facility] HADOOP ADMINISTRATOR.STORE SALES MANAGER Work Phone: [facility] 08-10-2024 11:05-0400 Heart rate 88 /min [facility] HADOOP ADMINISTRATOR.STORE SALES MANAGER Work Phone: [facility] 06-25-2025 11:05-0400 Respiratory rate 16 /min Desi Kupiec HADOOP ADMINISTRATOR.STORE SALES MANAGER Work Phone: [facility] 08-10-2024 11:05-0400 SaO2% (BldA) [Mass fraction] 97 % Desi Kupiec HADOOP ADMINISTRATOR.STORE SALES MANAGER Work Phone: [facility] 08-10-2024 11:05-0400 Systolic blood pressure 96 mm[Hg] Desi Kupiec HADOOP ADMINISTRATOR.STORE SALES MANAGER Work Phone: [facility] 05-29-2023 10:53-0400 [facility]MIN[facility].STORE SALES MANAGER Work Phone: [facility] 05-29-2023 10:53-0400 Body weight 65.8 [facility] HAD[facility] ADMINISTRATOR.STORE SALES MANAGER Work Phone: [facility] 05-29-2023 10:53-0400 Diastolic blood pressure 74 mm[Hg] Desi Kupiec HADOOP ADMINISTRATOR.STORE SALES MANAGER Work Phone: [facility] 05-29-2023 10:53-0400 Heart rate 105 /min Desi Kupiec HADOOP ADMINISTRATOR.STORE SALES MANAGER Work Phone: [facility] 05-29-2023 10:53-0400 Respiratory rate 16 /[facility] HADOOP ADMINISTRATOR.STORE SALES MANAGER Work Phone: [facility] 05-29-2023 10:53-0400 SaO2% (BldA) [Mass fraction] 99 % [facility] HADOOP ADMINISTRATOR.STORE SALES MANAGER Work Phone: [facility] 05-29-2023 10:53-0400 Systolic blood pressure 108 mm[Hg] Desi Kupiec HADOOP ADMINISTRATOR.STORE SALES MANAGER Work Phone: [facility] 10-23-2022 07:15-0400 Body temperature 96.91 [degF] Abdirahman Willis HADOOP ADMINISTRATOR.STORE SALES MANAGER Work Phone: [facility] 10-23-2022 07:15-0400 Body weight 64.5 kg Abdirahman Lazaro HADOOP ADMINISTRATOR.STORE SALES MANAGER Work Phone: [facility] 10-23-2022 07:15-0400 Diastolic blood pressure 74 mm[Hg] Abdirahman Lazaro HADOOP ADMINISTRATOR.STORE SALES MANAGER Work Phone: [facility] 10-23-2022 07:15-0400 Heart rate 100 /min Abdirahman Lazaro HADOOP ADMINISTRATOR.STORE SALES MANAGER Work Phone: [facility] 10-23-2022 07:15-0400 Respiratory rate 21 /min Abdirahman Lazaro HADOOP ADMINISTRATOR.STORE SALES MANAGER Work Phone: [facility] 10-23-2022 07:15-0400 SaO2% (BldA) [Mass fraction] 100 % Abdirahman Lazaro HADOOP ADMINISTRATOR.STORE SALES MANAGER Work Phone: [facility] 10-23-2022 07:15-0400 Systolic blood pressure 104 mm[Hg] Abdirahman Lazaro HADOOP ADMINISTRATOR.STORE SALES MANAGER Work Phone: [facility] 05-06-2022 11:35-0400 Body temperature 97.81 [degF] Alina Praisler-Wood HADOOP ADMINISTRATOR.STORE SALES MANAGER Work Phone: [facility] 05-06-2022 11:35-0400 Body weight 66.95 kg Alina Praisler-Wood HADOOP ADMINISTRATOR.STORE SALES MANAGER Work Phone: [facility] 05-06-2022 11:35-0400 Diastolic blood pressure 62 mm[Hg] Alina Praisler-Wood HADOOP ADMINISTRATOR.STORE SALES MANAGER Work Phone: [facility] 05-06-2022 11:35-0400 Heart rate 98 /min Alina Praisler-Wood HADOOP ADMINISTRATOR.STORE SALES MANAGER Work Phone: [facility] 05-06-2022 11:35-0400 Respiratory rate 18 /min Alina Praisler-Wood HADOOP ADMINISTRATOR.STORE SALES MANAGER Work Phone: [facility] 05-06-2022 11:35-0400 SaO2% (BldA) [Mass fraction] 99 % Alina Praisler-Wood HADOOP ADMINISTRATOR.STORE SALES MANAGER Work Phone: [facility] 05-06-2022 11:35-0400 Systolic blood pressure 116 mm[Hg] Alina TerrellDavid HADOOP ADMINISTRATOR.STORE SALES MANAGER Work Phone: [facility] 04-29-2022 13:02-0400 Body height 188 cm [facility] HADOOP ADMINISTRATOR.STORE SALES MANAGER Work Phone: [facility] 04-29-2022 13:02-0400 Body weight 67.77 kg [facility] HADOOP ADMINISTRATOR.STORE SALES MANAGER Work Phone: [facility] 04-29-2022 13:02-0400 Diastolic blood pressure 68 mm[Hg] [facility] HADOOP ADMINISTRATOR.STORE SALES MANAGER Work Phone: [facility] 04-29-2022 13:02-0400 Heart rate 93 /min [facility] HADOOP ADMINISTRATOR.[employer] Work Phone: [facility] 04-29-2022 13:02-0400 SaO2% (BldA) [Mass fraction] 100 % [facility] HADOOP ADMINISTRATOR.STORE SALES MANAGER Work Phone: [facility] 04-29-2022 13:02-0400 Systolic blood pressure 104 mm[Hg] [facility] HADOOP ADMINISTRATOR.STORE SALES MANAGER Work Phone: [facility] 07-05-2021 09:32-0400 Body height 184.2 cm [facility] HADOOP ADMINISTRATOR.[employer] Work Phone: [facility] 07-05-2021 09:32-0400 Body weight 65.68 kg [facility] HADOOP ADMINISTRATOR.STORE SALES MANAGER Work Phone: [facility] 07-05-2021 09:32-0400 Diastolic blood pressure 65 mm[Hg] [facility] HADOOP ADMINISTRATOR.STORE SALES MANAGER Work Phone: [facility] 07-05-2021 09:32-0400 Heart rate 110 /min [facility] HADOOP ADMINISTRATOR.STORE SALES MANAGER Work Phone: [facility] 07-05-2021 09:32-0400 SaO2% (BldA) [Mass fraction] 98 % Desialysa Blair HADOOP ADMINISTRATOR.STORE SALES MANAGER Work Phone: [facility] 07-05-2021 09:32-0400 Systolic blood pressure 95 mm[Hg] Desi Blair HADOOP ADMINISTRATOR.STORE SALES MANAGER Work Phone: [facility] 09-25-2016 15:20-0400 BMI (Body Mass Index) 21.06 kg/m2 Jennifer Hickman LPN [facility] Work Phone: 09-25-2016 15:20-0400 Body Temperature 98.5 [degF] Jennifer Hickman LPN [facility] Work Phone: 09-25-2016 15:20-0400 BP Diastolic 68 mm[Hg] Jennifer Hickman LPN [facility] Work Phone: 09-25-2016 15:20-0400 BP Systolic 102 mm[Hg] Jennifer Hickman LPN [facility] Work Phone: 09-25-2016 15:20-0400 Height 180.34 cm Jennifer Hickman LPN [facility] Work Phone: 09-25-2016 15:20-0400 Pulse (Heart Rate) 97 /min Jennifer Hickman LPN [facility] Work Phone: 09-25-2016 15:20-0400 Respiratory Rate 18 /min Jennifer Hickman LPN [facility] Work Phone: 09-25-2016 15:20-0400 Weight 68.49 kg Jennifer Hickman LPN [facility] Work Phone: 05-19-2016 15:29-0400 BMI (Body Mass Index) 21.11 kg/m2 Amada Rice SWEATER OPERATOR [facility] Work Phone: 05-19-2016 15:29-0400 Body Temperature 98.1 [degF] Amada Rice SWEATER OPERATOR [facility] Work Phone: 05-19-2016 15:29-0400 BP Diastolic 68 mm[Hg] Amada Rice CMA [facility] Work Phone: 05-19-2016 15:29-0400 BP Systolic 102 mm[Hg] Amada Rice CMA [facility] Work Phone: 05-19-2016 15:29-0400 Height 180.34 cm Amada Rice CMA [facility] Work Phone: 05-19-2016 15:29-0400 Pulse (Heart Rate) 90 /min Amada Rice CMA [facility] Work Phone: 05-19-2016 15:29-0400 Pulse Oximetry 99 % Amada Rice CMA [facility] Work Phone: 05-19-2016 15:29-0400 Respiratory Rate 16 /min [facility] Work Phone: 05-19-2016 15:29-0400 Weight 68.68 kg Amada Rice CMA [facility] Work Phone: 05-19-2016 15:29-0400 Weight 68.67 kg [facility] Work Phone: Encounters Encounter Date Encounter Type Care Provider Facility Start: 08-10-2024 End: 08-11-2024 Telephone encounter Desi García APRN.STORE SALES MANAGER Work Phone: Endocrinology Comment on above: BMV form Start: 08-10-2024 End: 08-10-2024 ambulatory DANIELLE Mckoy VIOLA Facility:[facility] Start: 08-10-2024 End: 08-10-2024 Patient encounter procedure Desi García APRN.STORE SALES MANAGER Work Phone: Endocrinology Comment on above: Type 1 diabetes jackelin itus without complication (HCC) (Primary Dx); Insulin pump status; Poor compliance Start: 04-01-2024 End: 04-01-2024 Telephone encounter Desi García HADOOP ADMINISTRATOR.STORE SALES MANAGER Work Phone: Endocrinology Comment on above: Certificate of Medic al Necessity (Medtronic) Start: 10-26-2023 End: 10-27-2023 Telephone encounter Desi García HADOOP ADMINISTRATOR.STORE SALES MANAGER Work Phone: Endocrinology Comment on above: Medtr[employer] Form (RX f or Pump, Diabetic Supplies, and Transmitter/Sensor 4) Start: 09-10-2023 End: 09-10-2023 Emergency department patient visit [facility] Facility:[facility] Start: 05-29-2023 End: 05-29-2023 Patient encounter procedure Desifatmata García HADOOP ADMINISTRATOR.STORE SALES MANAGER Work Phone: Endocrinology Comment on above: Type 1 diabetes jackelin itus without complication (HCC) (Primary Dx); Insulin pump status; Poor compliance Start: 05-06-2023 Telephone encounter Desi tobin HADOOP ADMINISTRATOR.STORE SALES MANAGER Work Phone: Endocrinology Comment on above: [employer]TR[employer] FORM Start: 10-23-2022 End: 10-23-2022 Patient encounter procedure Abdirahman Lazaro HADOOP ADMINISTRATOR.STORE SALES MANAGER Work Phone: [facility] Comment on above: Stomach problems (Pr imary Dx) Start: 05-07-2022 Telephone encounter Aranza ALEMAN Work Phone: [facility] Comment on above: Results Start: 05-06-2022 End: 05-06-2022 Patient encounter procedure Alina Tyler HADOOP ADMINISTRATOR.STORE SALES MANAGER Work Phone: [facility] Comment on above: Stomach pain (Primar y Dx); Flu-like symptoms; Acute bilateral low back pain without sciatica Start: 2022 Telephone encounter Desi tobin HADOOP ADMINISTRATOR.STORE SALES MANAGER Work Phone: Endocrinology Comment on above: Forms Start: 04-29-2022 End: 04-29-2022 Patient encounter procedure Desi García HADOOP ADMINISTRATOR.STORE SALES MANAGER Work Phone: Endocrinology Comment on above: Type 1 diabetes jackelin itus without complication (HCC) (Primary Dx); Insulin pump status; Poor compliance Start: 03-13-2022 Telephone encounter Desi tobin HADOOP ADMINISTRATOR.STORE SALES MANAGER Work Phone: Endocrinology Comment on above: HCP form ([employer]) Start: 07-05-2021 End: 07-05-2021 Patient encounter procedure Desi García HADOOP ADMINISTRATOR.STORE SALES MANAGER Work Phone: Endocrinology Comment on above: Type 1 diabetes jackelin itus without complication (HCC) (Primary Dx); Insulin pump status Start: 05-07-2020 End: 05-07-2020 Subsequent hospital visit by physician Raheem [facility] Work Phone: Radiology Comment on above: Acute pain of right knee [M25.561] Procedures Date Procedure Procedure Detail Performing Clinician Start: 08-10-2024 Hemoglobin A1c/Hemoglobin.total in Blood Desi García HADOOP ADMINISTRATOR.STORE SALES MANAGER Work Phone: Start: 05-29-2023 Hemoglobin A1c/Hemoglobin.total in Blood Desi García HADOOP ADMINISTRATOR.STORE SALES MANAGER Work Phone: Start: 05-06-2022 Urnls dip stick/tabl et rgnt auto w/o microscopy Alina Tyler HADOOP ADMINISTRATOR.STORE SALES MANAGER Work Phone: Start: 04-29-2022 Hemoglobin A1c/Hemoglobin.total in Blood Desi García HADOOP ADMINISTRATOR.STORE SALES MANAGER Work Phone: Start: 05-07-2020 Radiologic exam knee complete 4/more views Davon Bryant MD Work Phone: Plan of Treatment Date Care Activity Detail Author Start: 09-09-2033 Urine microalbumin profile DTaP,Tdap,Td Vaccine (8 - Td or Tdap) [facility] Start: 11-17-2024 End: 11-17-2024 Patient encounter procedure 11/17/2024 2:15 PM EDT Office Visit Endocrinology [address] [id number] Desi García APRN.STORE SALES MANAGER [address] [address] 3 month follow up Endocrinology Comment on above: 3 month follow up Start: 11-10-2024 Hemoglobin A1c measurement HbA1C [facility] Start: 10-17-2024 Influenza vaccination Influenz a Vaccine (Season Ended) [facility] Start: 08-11-2024 End: 11-10-2024 Comprehensive metabolic 2000 panel - Serum or Plasma COMPREHENSIVE METABOLIC PANEL Lab Routine Type 1 diabetes mellitus without complication (HCC) Expected: 08/11/2024 (Approximate), Expires: 11/10/2024 [facility] Work Phone: Comment on above: Expected: 08/11/2024 (Approximate), Expires: 11/10/2024 Start: 08-11-2024 End: 11-10-2024 Lipid 1996 panel - Serum or Plasma LIPID PANEL, FASTING Lab Routine Type 1 diabetes mellitus without complication (HCC) Expected: 08/11/2024 (Approximate), Expires: 11/10/2024 [facility] Comment on above: Expected: 08/11/2024 (Approximate), Expires: 11/10/2024 Start: 08-11-2024 End: 11-10-2024 Microalbumin/Creatinine [Mass Ratio] in Urine ALBUMIN/CREATININE RATIO, URINE Lab Routine Type 1 diabetes mellitus without complication (HCC) Expected: 08/11/2024 (Approximate), Expires: 11/10/2024 [facility] Comment on above: Expected: 08/11/2024 (Approximate), Expires: 11/10/2024 Start: 08-11-2024 End: 11-10-2024 Thyrotropin [Units/volume] in Serum or Plasma THYROID STIMULATING HORMONE Lab Routine Type 1 diabetes mellitus without complication (HCC) Expected: 08/11/2024 (Approximate), Expires: 11/10/2024 [facility] Comment on above: Expected: 08/11/2024 (Approximate), Expires: 11/10/2024 Start: 10-18-2023 Covid-19 Vaccine ( season) Covid-19 Vaccine () [facility] Start: 10-18-2023 Covid-19 Vaccine ( season) Covid-19 Vaccine () [facility] Start: 10-18-2023 Influenza vaccination [facility] Start: 08-28-2023 Hemoglobin A1c measurement HbA1C [facility] Start: 06-01-2023 End: 08-31-2023 Comprehensive metabolic 2000 panel - Serum or Plasma COMPREHENSIVE METABOLIC PANEL Lab Routine Type 1 diabetes mellitus without complication (HCC) Expected: 06/01/2023 (Approximate), Expires: 08/31/2023 [facility] Work Phone: Comment on above: Expected: 06/01/2023 (Approximate), Expires: 08/31/2023 Start: 06-01-2023 End: 08-31-2023 LIPID PANEL, NONFASTING LIPID PANEL, NONFASTING Lab Routine Type 1 diabetes mellitus without complication (HCC) Expected: 06/01/2023 (Approximate), Expires: 08/31/2023 [facility] Work Phone: Comment on above: Expected: 06/01/2023 (Approximate), Expires: 08/31/2023 Start: 06-01-2023 End: 08-31-2023 Microalbumin/Creatinine [Mass Ratio] in Urine ALBUMIN/CREATININE RATIO, URINE Lab Routine Type 1 diabetes mellitus without complication (HCC) Expected: 06/01/2023 (Approximate), Expires: 08/31/2023 [facility] Work Phone: Comment on above: Expected: 06/01/2023 (Approximate), Expires: 08/31/2023 Start: 06-01-2023 End: 08-31-2023 Thyrotropin [Units/volume] in Serum or Plasma THYROID STIMULATING HORMONE Lab Routine Type 1 diabetes mellitus without complication (HCC) Expected: 06/01/2023 (Approximate), Expires: 08/31/2023 [facility] Work Phone: Comment on above: Expected: 06/01/2023 (Approximate), Expires: 08/31/2023 Start: 05-07-2023 Hepatitis B screening URINE ALBUMIN:CREATININE RATIO [facility] Start: 05-07-2023 Hepatitis B surface antibody level LDL CHOLESTEROL [facility] Start: 04-30-2023 3 comp foot exam completed DIABETIC FOOT EXAM [facility] Start: 04-30-2023 Diabetic foot examination Diabetic Foot Exam [facility] Start: 02-16-2023 Behavioral Health Screening Behavioral Health Screening [facility] Start: 02-16-2023 Depression Assessment Depression Ass essment [facility] Start: 10-17-2022 Covid-19 Vaccine () Covid-19 Vaccine () [facility] Start: 10-17-2022 Influenza vaccination [facility] Start: 08-25-2022 Urine microalbumin profile [facility] Start: 07-30-2022 Hemoglobin A1c measurement HbA1C [facility] Start: 07-30-2022 Hemoglobin A1c/Hemoglobin.total in Blood HBA1C [facility] Start: 05-06-2022 End: 07-06-2022 ALBUMIN/CREAT RATIO RND UR ALBUMIN/CREAT RATIO RND UR Lab Routine Type 1 diabetes mellitus without complication (HCC) Expected: 05/06/2022 (Approximate), Expires: 07/06/2022 [facility] Work Phone: Comment on above: Expected: 05/06/2022 (Approximate), Expires: 07/06/2022 Start: 05-06-2022 End: 07-06-2022 Comprehensive metabolic 2000 panel - Serum or Plasma COMP METABOLIC PANEL Lab Routine Type 1 diabetes mellitus without complication (HCC) Expected: 05/06/2022 (Approximate), Expires: 07/06/2022 [facility] Work Phone: Comment on above: Expected: 05/06/2022 (Approximate), Expires: 07/06/2022 Start: 05-06-2022 End: 07-06-2022 Lipid 1996 panel - Serum or Plasma LIPID PANEL BASIC Lab Routine Type 1 diabetes mellitus without complication (HCC) Expected: 05/06/2022 (Approximate), Expires: 07/06/2022 [facility] Work Phone: Comment on above: Expected: 05/06/2022 (Approximate), Expires: 07/06/2022 Start: 05-06-2022 End: 07-06-2022 Thyrotropin [Units/volume] in Serum or Plasma TSH BLD Lab Routine Type 1 diabetes mellitus without complication (HCC) Expected: 05/06/2022 (Approximate), Expires: 07/06/2022 [facility] Work Phone: Comment on above: Expected: 05/06/2022 (Approximate), Expires: 07/06/2022 Start: 02-16-2022 DEPRESSION ASSESSMENT DEPRESSION ASS ESSMENT [facility] Start: 12-25-2021 3 comp foot exam completed DIABETIC FOOT EXAM [facility] Start: 10-17-2021 Influenza vaccination INFLUENZA (#1) [facility] Start: 09-04-2021 COVID-19 VACCINE (3 - Booster for Pfizer series) COVID-19 VACCINE (3 - Booster for Pfizer series) [facility] Start: 08-03-2021 Hemoglobin A1c/Hemoglobin.total in Blood HBA1C [facility] Start: 07-10-2021 End: 09-09-2021 ALBUMIN/CREAT RATIO RND UR ALBUMIN/CREAT RATIO RND UR Lab Routine Type 1 diabetes mellitus without complication (HCC) Expected: 07/10/2021 (Approximate), Expires: 09/09/2021 [facility] Work Phone: Comment on above: Expected: 07/10/2021 (Approximate), Expires: 09/09/2021 Start: 07-10-2021 End: 09-09-2021 Comprehensive metabolic 2000 panel - Serum or Plasma COMP METABOLIC PANEL Lab Routine Type 1 diabetes mellitus without complication (HCC) Expected: 07/10/2021 (Approximate), Expires: 09/09/2021 [facility] Work Phone: Comment on above: Expected: 07/10/2021 (Approximate), Expires: 09/09/2021 Start: 07-10-2021 End: 09-09-2021 LIPID PANEL BASIC LIPID PANEL BASIC Lab Routine Type 1 diabetes mellitus without complication (HCC) Expected: 07/10/2021 (Approximate), Expires: 09/09/2021 [facility] Work Phone: Comment on above: Expected: 07/10/2021 (Approximate), Expires: 09/09/2021 Start: 07-10-2021 End: 09-09-2021 Thyrotropin [Units/volume] in Serum or Plasma TSH BLD Lab Routine Type 1 diabetes mellitus without complication (HCC) Expected: 07/10/2021 (Approximate), Expires: 09/09/2021 [facility] Work Phone: Comment on above: Expected: 07/10/2021 (Approximate), Expires: 09/09/2021 Start: 06-02-2021 COVID-19 VACCINE (3 - Booster for Pfizer series) COVID-19 VACCINE (3 - Booster for Pfizer series) [facility] Start: 06-02-2021 COVID-19 VACCINE (3 - Pfizer series) COVID-19 VACCINE (3 - Pfizer series) [facility] Start: 09-23-2019 Hepatitis B screening URINE ALBUMIN:CREATININE RATIO [facility] Start: 09-23-2019 Hepatitis B surface antibody level LDL CHOLESTEROL [facility] Start: 2018 ANNUAL PCP TEAM WIRELESS STORE MANAGER KATYA DISEASE VISIT ANNUAL PCP TEAM CHRONIC DISEASE VISIT [facility] Start: 2018 Anxiety Screening Anxiety Screening [facility] Start: 2018 [facility] 2018 HEPATITIS C SCREENING HEPATITIS C [facility] Start: 2018 Hepatitis C screening Hepatitis C [facility] Start: 2018 HIV SCREENING HIV SCREENING [facility] Start: 2018 HIV screening HIV Screening [facility] Start: 09-25-2016 End: 09-25-2016 Appointment Appointment [facility] Work Phone: Start: 09-25-2016 End: 09-25-2016 *CMP Complete Metabolic Panel *CMP Complete Metabolic Panel [facility] Work Phone: Start: 09-25-2016 End: 09-25-2016 *Microalbumin, Creatine Ratio, rand urine *Microalbumin, Creatine Ratio, rand urine [facility] Work Phone: Start: 09-25-2016 End: 09-25-2016 Hemoglobin A1c/Hemoglobin.total mass fraction (Bld) *HgA1C [facility] Work Phone: Start: 05-19-2016 End: 05-19-2016 *CMP Complete Metabolic Panel *CMP Complete Metabolic Panel [facility] Work Phone: Start: 05-19-2016 End: 05-19-2016 *Microalbumin, Creatine Ratio, rand urine *Microalbumin, Creatine Ratio, rand urine [facility] Work Phone: Start: 05-19-2016 End: 05-19-2016 HbA1c *HgA1C [facility] Work Phone: Start: 05-19-2016 End: 05-19-2016 Lipid panel [AGGREGATE] *Lipid Profile [facility] Work Phone: Start: 2016 Meningococcal B Vacc ine (1 of 2 - Standard) Meningococcal B Vaccine (1 of 2 - Standard) [facility] Start: 2016 Meningococcal B Vaccine: Consider Based On Risk (1 of 2 - Patient Seeks Protection) Meningococcal B Vaccine: Consider Based On Risk (1 of 2 - Patient Seeks Protection) [facility] Start: 2016 MENINGOCOCCAL B: Consider based on risk (1 of 2 - Patient Seeks Protection) MENINGOCOCCAL B: Consider based on risk (1 of 2 - Patient Seeks Protection) [facility] Start: 2016 ONE PNEUMOVAX PRIOR TO AGE 65 ONE PNEUMOVAX PRIOR TO AGE 65 [facility] Start: 05-02-2015 HPV Vaccine (1 - Mal e 3-dose series) HPV Vaccine (1 - Male 3-dose series) [facility] Start: 2014 PEDS TO ADULT TRANSITION ANNUAL ASSESSMENT PEDS TO ADULT TRANSITION ANNUAL ASSESSMENT [facility] Start: 2012 Adult depression screening assessment DEPRESSION SCREENING [facility] Start: 2012 PEDS TO ADULT TRANSITION INITIAL DISCUSSION PEDS TO ADULT TRANSITION INITIAL DISCUSSION [facility] Start: 05-02-2011 HPV VACCINE (1 - Mal e 2-dose series) HPV VACCINE (1 - Male 2-dose series) [facility] Start: 2010 Glaucoma screening Dilated Retinal E xam [facility] Start: 2010 Hepatitis C antibody , confirmatory test DILATED RETINAL EXAM [facility] Start: 2010 MENINGOCOCCAL B: Consider based on risk (1 of 2 - Risk Bexsero 2-dose series) MENINGOCOCCAL B: Consider based on risk (1 of 2 - Risk Bexsero 2-dose series) [facility] Start: 2009 HPV VACCINE (1 - Mal e 2-dose series) HPV VACCINE (1 - Male 2-dose series) [facility] Start: 2006 Pneumococcal vaccination [facility] Start: 05-04-2002 PNEUMOCOCCAL (1 - PPSV23 if available, else PCV20) PNEUMOCOCCAL (1 - PPSV23 if available, else PCV20) [facility] Start: 06-29-2001 PNEUMOCOCCAL (1 - PPSV23 if available, else PCV20) PNEUMOCOCCAL (1 - PPSV23 if available, else PCV20) [facility] Start: 06-29-2001 PNEUMOCOCCAL (1 - PPSV23 or PCV20) PNEUMOCOCCAL (1 - PPSV23 or PCV20) [facility] Influenza virus A an d B RNA and SARS-CoV-2 (COVID-19) N gene panel - Respiratory specimen by ANDERS with probe detection COVID WITH FLUA+B, ROUTINE Microbiology Routine Flu-like symptoms Ordered: 05/06/2022 [facility] Work Phone: Comment on above: Ordered: 05/06/2022 [facility] Immunizations Immunization Date Immunization Notes Care Provider [facility] 04-07-2021 COVID-19 vaccine, ag e 12+ yr (PFIZER-BIONTECH - PURPLE TOP) Desi García HADOOP ADMINISTRATOR.STORE SALES MANAGER Work Phone: [facility] 03-17-2021 COVID-19 vaccine, ag e 12+ yr (PFIZER-BIONTECH - PURPLE TOP) Desi García HADOOP ADMINISTRATOR.STORE SALES MANAGER Work Phone: [facility] 12-25-2020 influenza, injectabl e, quadrivalent, contains preservative Desi García HADOOP ADMINISTRATOR.STORE SALES MANAGER Work Phone: [facility] 12-25-2020 influenza virus vacc ine, unspecified formulation Desi García HADOOP ADMINISTRATOR.STORE SALES MANAGER Work Phone: [facility] 10-01-2017 meningococcal polysaccharide vaccine (MPSV4) Desi García HADOOP ADMINISTRATOR.STORE SALES MANAGER Work Phone: [facility] 08-25-2012 meningococcal polysaccharide (groups A, C, Y and W-135) diphtheria toxoid conjugate vaccine (MCV4P) Desi Kupiec HADOOP ADMINISTRATOR.[employer] Work Phone: [facility] 08-25-2012 tetanus toxoid, redu josé antonio diphtheria toxoid, and acellular pertussis vaccine, adsorbed Desi Kupiec HADOOP ADMINISTRATOR.[employer] Work Phone: [facility] 11-26-2010 influenza virus vacc ine, unspecified formulation Desi Kupiec HADOOP ADMINISTRATOR.STORE SALES MANAGER Work Phone: [facility] Work Phone: 03-01-2007 influenza virus vacc ine, unspecified formulation Desi Kupiec HADOOP ADMINISTRATOR.[employer] Work Phone: [facility] Work Phone: 01-05-2006 influenza virus vacc ine, unspecified formulation Desi Kupiec HADOOP ADMINISTRATOR.[employer] Work Phone: [facility] Work Phone: 06-16-2005 diphtheria, tetanus toxoids and acellular pertussis vaccine, unspecified formulation Desi Kupiec HADOOP ADMINISTRATOR.[employer] Work Phone: [facility] 06-16-2005 measles, mumps and rubella virus vaccine Desi Kupiec HADOOP ADMINISTRATOR.[employer] Work Phone: [facility] 06-16-2005 poliovirus vaccine, inactivated Desi Kupiec HADOOP ADMINISTRATOR.[employer] Work Phone: [facility] 04-29-2005 diphtheria, tetanus toxoids and acellular pertussis vaccine, unspecified formulation Desi Kupiec HADOOP ADMINISTRATOR.STORE SALES MANAGER Work Phone: [facility] 04-29-2005 measles, mumps and rubella virus vaccine Desi Kupiec HADOOP ADMINISTRATOR.[employer] Work Phone: [facility] 04-29-2005 poliovirus vaccine, inactivated Desi Kupiec HADOOP ADMINISTRATOR.[employer] Work Phone: [facility] 03-30-2002 diphtheria, tetanus toxoids and acellular pertussis vaccine, 5 pertussis antigens Desi Kupiec HADOOP ADMINISTRATOR.STORE SALES MANAGER Work Phone: [facility] 03-30-2002 varicella virus vaccine Heraclio fly Kupiec HADOOP ADMINISTRATOR.STORE SALES MANAGER Work Phone: [facility] 05-04-2001 haemophilus influenz ae type b vaccine, PRP-T conjugate Desi Kupiec HADOOP ADMINISTRATOR.STORE SALES MANAGER Work Phone: [facility] 05-04-2001 measles, mumps and rubella virus vaccine Desi Kupiec HADOOP ADMINISTRATOR.STORE SALES MANAGER Work Phone: [facility] 05-04-2001 pneumococcal conjuga te vaccine, 13 valent Desi Kupiec HADOOP ADMINISTRATOR.[employer] Work Phone: [facility] 2000 diphtheria, tetanus toxoids and acellular pertussis vaccine, 5 pertussis antigens Desi Kupiec HADOOP ADMINISTRATOR.STORE SALES MANAGER Work Phone: [facility] 2000 haemophilus influenz ae type b vaccine, PRP-T conjugate Desi Kupiec HADOOP ADMINISTRATOR.STORE SALES MANAGER Work Phone: [facility] 2000 hepatitis B vaccine, pediatric or pediatric/adolescent dosage Desi Kupiec HADOOP ADMINISTRATOR.[employer] Work Phone: [facility] 2000 pneumococcal conjuga te vaccine, 13 valent Desi Kupiec HADOOP ADMINISTRATOR.STORE SALES MANAGER Work Phone: [facility] 2000 poliovirus vaccine, inactivated Desi Kupiec HADOOP ADMINISTRATOR.STORE SALES MANAGER Work Phone: [facility] 2000 diphtheria, tetanus toxoids and acellular pertussis vaccine, 5 pertussis antigens Desi Kupiec HADOOP ADMINISTRATOR.[employer] Work Phone: [facility] 2000 haemophilus influenz ae type b vaccine, PRP-T conjugate Desi Kupiec HADOOP ADMINISTRATOR.[employer] Work Phone: [facility] 2000 pneumococcal conjuga te vaccine, 13 valent Desi Kupiec HADOOP ADMINISTRATOR.STORE SALES MANAGER Work Phone: [facility] 2000 poliovirus vaccine, inactivated [facility] HADOOP ADMINISTRATOR.[employer] Work Phone: [facility] 2000 diphtheria, tetanus toxoids and acellular pertussis vaccine, 5 pertussis antigens [facility] HADOOP ADMINISTRATOR.STORE SALES MANAGER Work Phone: [facility] 2000 haemophilus influenz ae type b vaccine, PRP-T conjugate [facility] HADOOP ADMINISTRATOR.STORE SALES MANAGER Work Phone: [facility] 2000 hepatitis B vaccine, pediatric or pediatric/adolescent dosage [facility] HADOOP ADMINISTRATOR.STORE SALES MANAGER Work Phone: [facility] 2000 pneumococcal conjuga te vaccine, 13 valent [facility] HADOOP ADMINISTRATOR.STORE SALES MANAGER Work Phone: [facility] 2000 poliovirus vaccine, inactivated [facility] HADOOP ADMINISTRATOR.[employer] Work Phone: [facility] 2000 hepatitis B vaccine, pediatric or pediatric/adolescent dosage [facility] HADOOP ADMINISTRATOR.[employer] Work Phone: [facility] Payers Date Payer Category Payer Self-pay 2018 [employer] BLUE CARD PPO OOS [id number] 2018 Unknown [employer] BLUE CARD PPO OOS [id number] 2018-Present [phone] [address] [place] [address] PPO [id number] 2018 Unknown [employer] BLUE CARD PPO OOS [id number] 2018-Present [phone] [address] [place] [address] PPO [id number] 2018 Unknown [id number] Unknown [id number] Social History Date Type Detail Facility Start: 09-16-2010 End: 04-29-2022 Tobacco smoking status NHIS Never smoked tobacco [facility] Start: 07-05-2021 End: 08-10-2024 Alcohol intake Ex-drinker (finding) [facility] Start: 2000 Sex Assigned At Not on file [facility] Start: 04-07-2020 End: 07-05-2021 Exposure to SARS-CoV-2 (event) Not sure [facility] Start: 09-16-2010 End: 04-29-2022 Tobacco use and exposure Smokeless tobacco non-user [facility] Work Phone: Start: 10-23-2022 End: 05-29-2023 History of Social function [facility] Start: 10-23-2022 End: 05-29-2023 Tobacco use panel [facility] National Score (1-100), lower number is lower risk 68 [facility] Medical Equipment Procedure Code Equipment Code Equipment Original Text Equipment Identifier Dates [id number], [id number], [id number], [id number], [id number] Start: 11-03-2019 End: 08-10-2024 Comment on above: Use one daily with i nsulin if insulin pump fails Use as instructed 4 lancets daily, IDDM, E 10.9 CHECK BLOOD SUGARS 4 TIMES DAILY. IDDM, E10.9 Use as instructed; u se 3 strips per day, IDDM, E 10.9 Use as instructed 3 lancets daily, IDDM, E 10.9 Use as instructed; u se 4 strips per day, IDDM, E 10.9 Functional Status Date Assessment Result Facility 08-16-2014 Are you deaf, or do you have serious difficulty hearing No 08/16/2014 5:01 PM EDT Swetha Singh LPN No [facility] 08-16-2014 Are you blind, or do you have serious difficulty seeing, even when wearing glasses No 08/16/2014 5:01 PM EDT Swetha Singh LPN No [facility] 08-16-2014 Do you have serious difficulty walking or climbing stairs No 08/16/2014 5:01 PM EDT Swetha Singh LPN No [facility] 08-16-2014 Do you have difficul ty dressing or bathing No 08/16/2014 5:01 PM EDT Swetha Singh LPN No [facility] Mental Status Date Assessment Result Facility 08-16-2014 Because of a physica l, mental, or emotional condition, do you have serious difficulty concentrating, remembering, or making decisions No 08/16/2014 5:01 PM EDT Swetha Singh LPN No [facility] Clinical Notes 05-07-2020 to 08-11-2024 Telephone Encounter - Katerina Crawford RN - 08/11/2024 1:09 PM EDTTelephone Encounter - Katerina Crawford RN - 08/11/2024 1:09 PM EDTPatient InstructionsPatient Instructions Note Date & Type Note Facility 08-11-2024 Telephone encounter Note BMV form faxed to the [facility]. Copy made and sent to scanning and another copy was made an put in our file. Closed [facility] 08-11-2024 Miscellaneous Notes BMV form faxed to the [facility]. Copy made and sent to scanning and another copy was made an put in our file. Closed BMV form completed. Please fax to BMV. Keep a copy for EMR Thank you documented in this encounter [facility] 08-10-2024 Telephone encounter Note BMV form completed. Please fax to [facility]V. Keep a copy for EMR Thank you [facility] 08-10-2024 Instructions Desi García APRN.CNP - 08/10/2024 11:26 AM EDT Pump settings. 00:00= 1.10 0600=1.20 2330=1.40 Bolus: Insulin:carb ratio 00:00= 10 1030=10 1400=8 Sensitivity 00:00= 60 Blood glucose target 00:00= 797-366 9521= 100-120 Insulin duration= 3 hr Labs in the next 2 wks Contact [employer] about upgrading to the 780 pump and Guardian 4 CGM Have a copy of the eye exam sent to us. Follow up in 3 months Desi García, MSN, HADOOP ADMINISTRATOR, INDUSTRIAL ENGINEERING-C, [facility] Endocrinology [facility] Medical Office [facility] [address], [address] [place] [address] Fax: documented in this encounter [facility] 08-10-2024 Note HNO ID: [id number] Author: NERISSA RUIZ MA Service: ? Author Type: Sales Program Coordinator Type: Procedures Filed: 08/10/2024 12:44 Note Text: [facility] 08-10-2024 Procedure note Procedure(s): EXTERNAL RESILIENT TILE INSTALLER, CGM SYS Images from the original note were not included. [facility] 08-10-2024 Procedure note Procedure(s): EXTERNAL RESILIENT TILE INSTALLER, CGM SYS Images from the original note were not included. documented in this encounter [facility] 08-10-2024 History of Presen t illness Narrative Reason for Consultation: DM Type 1 Referring Physician: Doris Victoria APRN.STORE SALES MANAGER [address] [address] HISTORY OF PRESENT ILLNESS Mr. Castro is a 24 year old male presenting here today for a follow up of DM Type 1. As I recall, he was initially diagnosed with diabetes 2004 (age 5). LV 05/29/23 A1C today is 10.8. Down from 12.7 in 05/2023 Not using CGM --states it was falling off Needs BMV form completed today. Denies MVA due to hypoglycemia Reports an eye exam in the last. Denies retinopathy. 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 Sleep 6-7 AM to 2-3 pm. Working 10 pm to 6 AM. Current diabetes regimen is as follows: Basal insulin for back up:basaglar Glucagon: yes Novolog via Medtronic 770 pump with Guardian 3 CGM --not using CGM CGM Pump settings. 00:00= 1.20 2330=1.40 Bolus: Insulin:carb ratio 00:00= 10 1030=10 1400=8 Sensitivity 00:00= 60 Blood glucose target 00:00= 919-098 7585= 100-120 Insulin duration= 3 hr Pump download Auto mode =0% Not using his CGM Site change every 9 days Entering 0-2 BG readings daily. Mostly 0. Bolused for meals 3 times in 14 days. Most activity is in the 3 days leading up to his office visit. he is checking his blood glucose 0-2 times daily. he does bring a log book today for review. LDE Blood Sugar Frequency: 126, 107-- overnight 179, 143, 266, 178, 214, 193 during the day *8 BG readings in 14 days Hypoglycemia frequency: rare Hypoglycemia awareness: Yes Regarding symptoms of hypoglycemia, he is not experiencing any symptoms such as polyuria, polydipsia, nocturia or rapid weight loss or blurry vision, Overall, the patient has no acute complaints at this time. PAST MEDICAL HISTORY Diagnosis Date Insulin pump status 12/22/2018 Type I (juvenile type) diabetes mellitus without mention of complication, uncontrolled No past surgical history on file. FAMILY HISTORY Problem Relation Age of Onset Heart Father Hypertension Maternal Grandmother Cancer Other k Social History Tobacco Use Smoking status: Never Smokeless tobacco: Never Vaping Use Vaping status: Never Used Substance Use Topics Alcohol use: Not Currently Drug use: Never Allergies As of Date: 08/10/2024 (No Known Allergies) Fully Assessed 08/10/2024 Current Outpatient Medications Medication Sig Dispense Refill NOVOLOG U-100 INSULIN ASPART 100 unit/mL Inject up to 100 units daily in insulin pump 90 mL 3 Lancets Use as instructed 3 lancets daily, IDDM, E 10.9 400 Each 3 blood sugar diagnostic (ACCU-CHEK GUIDE TEST STRIPS) test strip Use as instructed; use 4 strips per day, IDDM, E 10.9 150 Strip 11 Insulin [place], Disposable, (BD ULTRAFINE III MINI PEN) 31 gauge x 3/16 Use one daily with insulin if insulin pump fails 50 Each 1 insulin glargine (BASAGLAR KWIKPEN U-100 INSULIN) 100 unit/mL (3 mL) Inject 26 units subcutaneously daily if insulin pump fails 15 mL 1 glucagon (BAQSIMI) 3 mg/actuation nasal spray Use 1 [place] in the nose as needed for low blood sugar. May repeat after 15 minutes using a new device if there is no response. 2 Each 2 EPINEPHrine (EPIPEN 2-KELLY) 0.3 mg/0.3 mL auto-injector Inject 0.3 mL intramuscularly as needed. (Patient not taking: Reported on 04/29/2022) 2 Each 1 SUBCUTANEOUS INSULIN PUMP (MEDTRONIC MINIMED INSULIN MISC) No current facility-administered medications for this visit. REVIEW OF SYSTEMS Answers submitted by the patient for this visit: Core Review of Systems (Submitted on 08/10/2024) Fever : No Night sweats: No Recent unintentional weight change: No Nasal Congestion: No Hearing Loss: No Vision Disturbance: No A cough: No Difficulty Breathing?: No Chest pain: No Irregular heartbeat: No Leg Swelling: No Nausea: No Diarrhea: No Black tarry stools: No Difficulty Urinating?: No Awaken at Night More Than Once to Urinate?: No Joint pain or stiffness: No Muscle aches: No Leg or Foot Discomfort at Night?: No A rash: No Dizziness: No Headaches: No Memory Loss: No Seizures: No PHYSICAL EXAMINATION BP 96/60 Pulse 88 Resp 16 Ht 188 cm (6' 2.02) Wt 69 kg (152 lb 1.9 oz) SpO2 97% BMI 19.52 kg/m2 Physical Exam Constitutional: Appearance: Normal appearance. Cardiovascular: Rate and Rhythm: Normal rate and regular rhythm. Pulmonary: Effort: Pulmonary effort is normal. Breath sounds: Normal breath sounds. Skin: General: Skin is warm and dry. Neurological: Mental Status: He is alert and oriented to person, place, and time. Psychiatric: Mood and Affect: Mood normal. Behavior: Behavior normal. DATA Creatinine Date Value Ref Range Status 05/06/2022 0.76 0.73 - 1.22 mg/dL Final Hemoglobin A1C (%) Date Value 08/17/2014 14.2 Hemoglobin A1c (%) Date Value 06/21/2015 11.5 Hemoglobin A1C (POCT) (%) Date Value 05/29/2023 12.7 ) No components found for: URINEALBUMIN Cholesterol, Total (mg/dL) Date Value 05/06/2022 151 09/22/2018 193 HDL Cholesterol (mg/dL) Date Value 05/06/2022 47 09/22/2018 52 LDL Cholesterol, Calculated (mg/dL) Date Value 05/06/2022 97 09/22/2018 128 Triglyceride (mg/dL) Date Value 05/06/2022 34 09/22/2018 65 IMPRESSION: Mr. Castro is a 24 year old male here for evaluation of DM Type 1 complicated by None RECOMMENDATIONS: (E10.9) Type 1 diabetes mellitus without complication (HCC) (primary encounter diagnosis) Comment: Glycemic control is poor. He is not utilizing the pump as required. Seems to come in once a year when he needs his BMV form completed. Pump was adjusted. Recommend closed loop system. Plan: HEMOGLOBIN A1C (POC), COMPREHENSIVE METABOLIC PANEL, LIPID PANEL, FASTING, THYROID STIMULATING HORMONE, ALBUMIN/CREATININE RATIO, URINE, blood sugar diagnostic (ACCU-CHEK GUIDE TEST STRIPS) test strip, glucagon (BAQSIMI) 3 mg/actuation nasal spray, insulin glargine (BASAGLAR KWIKPEN U-100 INSULIN) 100 unit/mL (3 mL), Insulin [place], Disposable, (BD ULTRAFINE III MINI PEN) 31 gauge x 3/16, Lancets, NOVOLOG U-100 INSULIN ASPART 100 unit/mL Check BG 4x per day and enter into the pump Bolus/correct for BG readings using the bolus wizard. Change pump site every 3 days. Pump settings. 00:00= 1.10 0600=1.20 2330=1.40 Bolus: Insulin:carb ratio 00:00= 10 1030=10 1400=8 Sensitivity 00:00= 60 Blood glucose target 00:00= 794-405 1928= 100-120 Insulin duration= 3 hr Labs in the next 2 wks Contact medtronic about upgrading to the 780 pump and Guardian 4 CGM Have a copy of the eye exam sent to us. Follow up in 3 months (Z96.41) Insulin pump status Comment/Plan: Medtronic 770 G with Guardian 3 CGM (not actively using) Recommend he contact medtronic about upgrading to 780 and G4 CGM (Z91.199) Poor compliance Comment/Plan: Not consistently bolusing/taking insulin, doing corrections, entering carbs or monitoring his BG Medical Decision Making: Level: 4 - Moderate Desi García, MSN, HADOOP ADMINISTRATOR, INDUSTRIAL ENGINEERING-C, [facility] Endocrinology [facility] Medical Office [facility] [address], [address] [place] [address] Fax: documented in this encounter [facility] 08-10-2024 Note HNO ID: [id number] Author: DESI GARCÍA APRN.STORE SALES MANAGER Service: ? Author Type: Nurse Practitioner Type: Progress Notes Filed: 08/10/2024 12:44 Note Text: Reason for Consultation: DM Type 1 Referring Physician: Doris Victoria APRN.STORE SALES MANAGER [address] [address] HISTORY OF PRESENT ILLNESS Mr. Castro is a 24 year old male presenting here today for a follow up of DM Type 1. As I recall, he was initially diagnosed with diabetes 2004 (age 5). LV 05/29/23 A1C today is 10.8. Down from 12.7 in 05/2023 Not using CGM --states it was falling off Needs BMV form completed today. Denies MVA due to hypoglycemia Reports an eye exam in the last. Denies retinopathy. 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 Sleep 6-7 AM to 2-3 pm. Working 10 pm to 6 AM. Current diabetes regimen is as follows: Basal insulin for back up:basaglar Glucagon: yes Novolog via [place] [employer] 770 pump with Guardian 3 CGM --not using CGM CGM Pump settings. 00:00= 1.20 2330=1.40 Bolus: Insulin:carb ratio 00:00= 10 1030=10 1400=8 Sensitivity 00:00= 60 Blood glucose target 00:00= 397-652 9639= 100-120 Insulin duration= 3 hr Pump download Auto mode =0% Not using his CGM Site change every 9 days Entering 0-2 BG readings daily. Mostly 0. Bolused for meals 3 times in 14 days. Most activity is in the 3 days leading up to his office visit. he is checking his blood glucose 0-2 times daily. he does bring a log book today for review. LDE Blood Sugar Frequency: 126, 107-- overnight 179, 143, 266, 178, 214, 193 during the day *8 BG readings in 14 days Hypoglycemia frequency: rare Hypoglycemia awareness: Yes Regarding symptoms of hypoglycemia, he is not experiencing any symptoms such as polyuria, polydipsia, nocturia or rapid weight loss or blurry vision, Overall, the patient has no acute complaints at this time. PAST MEDICAL HISTORY Diagnosis Date Insulin pump status 12/22/2018 Type I (juvenile type) diabetes mellitus without mention of complication, uncontrolled No past surgical history on file. FAMILY HISTORY Problem Relation Age of Onset Heart Father Hypertension Maternal Grandmother Cancer Other k Social History Tobacco Use Smoking status: Never Smokeless tobacco: Never Vaping Use Vaping status: Never Used Substance Use Topics Alcohol use: Not Currently Drug use: Never Allergies As of Date: 08/10/2024 (No Known Allergies) Fully Assessed 08/10/2024 Current Outpatient Medications Medication Sig Dispense Refill NOVOLOG U-100 INSULIN ASPART 100 unit/mL Inject up to 100 units daily in insulin pump 90 mL 3 Lancets Use as instructed 3 lancets daily, IDDM, E 10.9 400 Each 3 blood sugar diagnostic (ACCU-CHEK GUIDE TEST STRIPS) test strip Use as instructed; use 4 strips per day, IDDM, E 10.9 150 Strip 11 Insulin [place], Disposable, (BD ULTRAFINE III MINI PEN) 31 gauge x 3/16 Use one daily with insulin if insulin pump fails 50 Each 1 insulin glargine (BASAGLAR KWIKPEN U-100 INSULIN) 100 unit/mL (3 mL) Inject 26 units subcutaneously daily if insulin pump fails 15 mL 1 glucagon (BAQSIMI) 3 mg/actuation nasal spray Use 1 [place] in the nose as needed for low blood sugar. May repeat after 15 minutes using a new device if there is no response. 2 Each 2 EPINEPHrine (EPIPEN 2-KELLY) 0.3 mg/0.3 mL auto-injector Inject 0.3 mL intramuscularly as needed. (Patient not taking: Reported on 04/29/2022) 2 Each 1 SUBCUTANEOUS INSULIN PUMP (MEDTRONIC MINIMED INSULIN MISC) No current facility-administered medications for this visit. REVIEW OF SYSTEMS Answers submitted by the patient for this visit: Core Review of Systems (Submitted on 08/10/2024) Fever : No Night sweats: No Recent unintentional weight change: No Nasal Congestion: No Hearing Loss: No Vision Disturbance: No A cough: No Difficulty Breathing?: No Chest pain: No Irregular heartbeat: No Leg Swelling: No Nausea: No Diarrhea: No Black tarry stools: No Difficulty Urinating?: No Awaken at Night More Than Once to Urinate?: No Joint pain or stiffness: No Muscle aches: No Leg or Foot Discomfort at Night?: No A rash: No Dizziness: No Headaches: No Memory Loss: No Seizures: No PHYSICAL EXAMINATION BP 96/60 Pulse 88 Resp 16 Ht 188 cm (6' 2.02) Wt 69 kg (152 lb 1.9 oz) SpO2 97% BMI 19.52 kg/m2 Physical Exam Constitutional: Appearance: Normal appearance. Cardiovascular: Rate and Rhythm: Normal rate and regular rhythm. Pulmonary: Effort: Pulmonary effort is normal. Breath sounds: Normal breath sounds. Skin: General: Skin is warm and dry. Neurological: Mental Status: He is alert and oriented to person, place, and time. Psychiatric: Mood and Affect: Mood normal. Behavior: Behavior normal. DATA Creatinine Date Value Ref Range Status 05/06/2022 0.76 0.73 - 1.22 mg/dL Final Hemoglobin A1C (%) Date Value 08/17/2014 (more content not included)... [facility] 04-01-2024 Telephone encounter Note Form faxed to [employer] at on April 01, 2024; transmission ok. [facility] 04-01-2024 Miscellaneous Notes Form faxed to [employer] at on April 01, 2024; transmission ok. Form signed. Thank you Form on docs desk/basket for review from: [employer] Please review and sign. Needs to be faxed to: [phone] Last office notes attached. documented in this encounter [facility] 04-01-2024 Telephone encounter Note Form signed. Thank you [facility] 04-01-2024 Telephone encounter Note Form on docs desk/basket for review from: [employer] Please review and sign. Needs to be faxed to: [phone] Last office notes attached. [facility] 10-27-2023 Telephone encounter Note Form Faxed, Transmission ok CLOSED [facility] 10-27-2023 Miscellaneous Notes Form Faxed, Transmission ok CLOSED Form signed. Thank you Form on docs desk/basket for review from [employer]. Please review and sign. Needs to be faxed to [phone]. Attached last office notes. RX for Pump, Diabetic Supplies, and Transmitter/Sensor 4 documented in this encounter [facility] 10-27-2023 Telephone encounter Note Form signed. Thank you [facility] 10-26-2023 Telephone encounter Note Form on docs desk/basket for review from [employer]. Please review and sign. Needs to be faxed to [phone]. Attached last office notes. RX for Pump, Diabetic Supplies, and Transmitter/Sensor 4 [facility] 05-29-2023 History of Presen t illness Narrative Reason for Consultation: DM Type 1 Referring Physician: Doris Victoria APRN.STORE SALES MANAGER [address] [address] HISTORY OF PRESENT ILLNESS Mr. Castro is a 23 year old male presenting here today for a follow up of DM Type 1. As I recall, he was initially diagnosed with diabetes 2004 (age 5). LV 04/29/22 A1C today is 12.7. up from 10.2 History in addition to diabetes include: None Had and eye exam and denies changes. Requesting BMV form to be completed today Not using CGM --states it was falling off Current diabetes regimen is as follows: Basal insulin for back up:basaglar Glucagon: yes Novolog via Medtronic 770 pump with Guardian 3 CGM --no using CGM Pump settings. 00:00= 1.20 2330=1.40 Bolus: Insulin:carb ratio 00:00= 10 1030=10 1400=8 Sensitivity 00:00= 60 Blood glucose target 00:00= 801-065 4522= 100-120 Insulin duration= 3 hr Pump download Auto mode =0% Not using his CGM Site change every 10 days Entering 0-1 BG readings daily. Bolused for meals 5 times in 14 days. he is checking his blood glucose 2-3 times daily. he does bring a log book today for review. LDE Blood Sugar Frequency: no meter or log book. FBG (about 11AM) mid to high 100's During day (3-4Pm) 200's Hypoglycemia frequency: rare Hypoglycemia awareness: Yes Regarding symptoms of hypoglycemia, he is not experiencing any symptoms such as polyuria, polydipsia, nocturia or rapid weight loss or blurry vision, Overall, the patient has no acute complaints at this time. PAST MEDICAL HISTORY Diagnosis Date Insulin pump status 12/22/2018 Type I (juvenile type) diabetes mellitus without mention of complication, uncontrolled No past surgical history on file. FAMILY HISTORY Problem Relation Age of Onset Heart Father Hypertension Maternal Grandmother Cancer Other k Social History Tobacco Use Smoking status: Never Smokeless tobacco: Never Vaping Use Vaping Use: Never used Substance Use Topics Alcohol use: Not Currently Drug use: Never Allergies As of Date: 05/29/2023 (No Known Allergies) Fully Assessed 05/29/2023 Current Outpatient Medications Medication Sig Dispense Refill Insulin [place], Disposable, (BD ULTRAFINE III MINI PEN) 31 gauge x 3/16 Use one daily with insulin if insulin pump fails 50 Each 1 insulin glargine (BASAGLAR KWIKPEN U-100 INSULIN) 100 unit/mL (3 mL) Inject 26 units subcutaneously daily if insulin pump fails 15 mL 1 Lancets lancets Use as instructed 3 lancets daily, IDDM, E 10.9 400 Each 3 NOVOLOG U-100 INSULIN ASPART 100 unit/mL Inject up to 100 units daily in insulin pump 90 mL 3 glucagon (BAQSIMI) 3 mg/actuation nasal spray Use 1 [place] in the nose as needed for low blood sugar. May repeat after 15 minutes using a new device if there is no response. 2 Each 2 blood sugar diagnostic (ACCU-CHEK GUIDE TEST STRIPS) test strip Use as instructed; use 3 strips per day, IDDM, E 10.9 SUBCUTANEOUS INSULIN PUMP (MEDTRONIC MINIMED INSULIN MISC) EPINEPHrine (EPIPEN 2-KELLY) 0.3 mg/0.3 mL auto-injector Inject 0.3 mL intramuscularly as needed. (Patient not taking: Reported on 04/29/2022) 2 Each 1 No current facility-administered medications for this visit. REVIEW OF SYSTEMS Review of Systems Constitutional: Negative for night sweats and recent unintentional weight change. Eyes: Negative for visual disturbance. Respiratory: Negative for difficulty breathing. Cardiovascular: Negative for chest pain and leg swelling. Gastrointestinal: Negative for nausea and diarrhea. Musculoskeletal: Negative for myalgias. Neurological: Negative for dizziness and headaches. Answers submitted by the patient for this visit: Core Review of Systems (Submitted on 05/29/2023) Fever : No Nasal Congestion: No Hearing Loss: No A cough: No Irregular heartbeat: No Black tarry stools: No Difficulty Urinating?: No Awaken at Night More Than Once to Urinate?: No Joint pain or stiffness: No Leg or Foot Discomfort at Night?: No A rash: No Memory Loss: No Seizures: No PHYSICAL EXAMINATION BP 108/74 Pulse 105 Resp 16 Ht 188 cm (6' 2.02) Wt 65.8 kg (145 lb 1 oz) SpO2 99% BMI 18.62 kg/m2 Physical Exam Constitutional: Appearance: Normal appearance. Cardiovascular: Rate and Rhythm: Normal rate and regular rhythm. Pulmonary: Effort: Pulmonary effort is normal. Breath sounds: Normal breath sounds. Skin: General: Skin is warm and dry. Neurological: Mental Status: He is alert and oriented to person, place, and time. Psychiatric: Mood and Affect: Mood normal. Behavior: Behavior normal. DATA Creatinine Date Value Ref Range Status 05/06/2022 0.76 0.73 - 1.22 mg/dL Final Hemoglobin A1C (%) Date Value 08/17/2014 14.2 Hemoglobin A1c (%) Date Value 06/21/2015 11.5 Hemoglobin A1C (POCT) (%) Date Value 05/29/2023 12.7 ) No components found for: URINEALBUMIN Cholesterol, Total (mg/dL) Date Value 05/06/2022 151 09/22/2018 193 HDL Cholesterol (mg/dL) Date Value 05/06/2022 47 09/22/2018 52 LDL Cholesterol (mg/dL) Date Value 05/06/2022 97 09/22/2018 128 Triglyceride (mg/dL) Date Value 05/06/2022 34 09/22/2018 65 IMPRESSION: Mr. Castro is a 23 year old male here for evaluation of DM Type 1 complicated by None RECOMMENDATIONS: (E10.9) Type 1 diabetes mellitus without complication (HCC) (primary encounter diagnosis) Comment: Glycemic control is poor. Reported BG readings do not match A1C. He is not utilizing the pump as required. Reviewed short and group home consequences of hyperglycemia. Seems to come in once a year when he needs his BMV form completed. Plan: HEMOGLOBIN A1C (POC), NOVOLOG U-100 INSULIN ASPART 100 unit/mL, Lancets, blood sugar diagnostic (ACCU-CHEK GUIDE TEST STRIPS) test strip, COMPREHENSIVE METABOLIC PANEL, ALBUMIN/CREATININE RATIO, URINE, THYROID STIMULATING HORMONE, LIPID PANEL, NONFASTING Try using CGM again. Check BG 4x per day and enter into the pump Bolus/correct for BG readings using the bolus wizard. Change pump site every 3 days. Labs in the next couple weeks Have a copy of the eye exam sent to us. Follow up in 5-6 wk and 12 wks (Z96.41) Insulin pump status Comment/Plan: [employer] 770 G with Guardian 3 CGM (not actively using) (Z91.199) Poor compliance Comment/Plan: Not consistently bolusing/taking insulin, doing corrections, entering carbs or monitoring his BG Medical Decision Making: Level: 4 - Moderate BMV form completed. Patient given original to take to BMV. Copy kept for EMR Desi García, MSN, HADOOP ADMINISTRATOR, INDUSTRIAL ENGINEERING-C, CDE Endocrinology [facility] Medical Office [facility] [address], [address] [place], [place] [address] Fax: documented in this encounter [facility] 05-07-2023 Miscellaneous Notes Form faxed to: [phone] Confirmation fax received. Transmission successful. Form signed. Thank you Form on docs desk/basket for review from [employer]. Please review and sign. Needs to be faxed to FOR: PRESCRIPTION FOR PUMP SUPPLIES documented in this encounter [facility] 10-23-2022 History of Presen t illness Narrative Subjective HPI HPI Jose Castro is a 22 year old male who presents today for CC of nausea/vomiting, intermittent diarrhea, moving stomach pain, weakness. This started 3 months ago. Has tried otc medication for relief. Symptoms are worsened by nothing. Risk factors patient diabetic, uncontrolled in past. Denies heartburn, blood in stool, weight loss, fever. .Patient presents with: Nausea & Vomiting: Diarrhea, fatigue, stomach pain x 3 months PAST MEDICAL HISTORY Diagnosis Date Insulin pump status 12/22/2018 Type I (juvenile type) diabetes mellitus without mention of complication, uncontrolled No past surgical history on file. ALLERGIES Patient has no known allergies. MEDICATIONS Insulin [place], Disposable, (BD ULTRAFINE III MINI PEN) 31 gauge x 3/16 Use one daily with insulin if insulin pump fails insulin glargine (BASAGLAR KWIKPEN U-100 INSULIN) 100 unit/mL (3 mL) Inject 26 units subcutaneously daily if insulin pump fails Lancets lancets Use as instructed 3 lancets daily, IDDM, E 10.9 NOVOLOG U-100 INSULIN ASPART 100 unit/mL Inject up to 100 units daily in insulin pump glucagon (BAQSIMI) 3 mg/actuation nasal spray Use 1 [place] in the nose as needed for low blood sugar. May repeat after 15 minutes using a new device if there is no response. blood sugar diagnostic (ACCU-CHEK GUIDE TEST STRIPS) test strip Use as instructed; use 3 strips per day, IDDM, E 10.9 SUBCUTANEOUS INSULIN PUMP (MEDTRONIC MINIMED INSULIN MISC) EPINEPHrine (EPIPEN 2-KELLY) 0.3 mg/0.3 mL auto-injector Inject 0.3 mL intramuscularly as needed. (Patient not taking: Reported on 04/29/2022) FAMILY HISTORY Problem Relation Age of Onset Heart Father Hypertension Maternal Grandmother Cancer Other k Social History Tobacco Use Smoking status: Never Smokeless tobacco: Never Vaping Use Vaping Use: Never used Substance Use Topics Alcohol use: Not Currently Drug use: Never ROS Objective Blood pressure 104/74, pulse 100, temperature 36.1 C (96.9 F), resp. rate 21, weight 64.5 kg (142 lb 3.2 oz), SpO2 100 %. Physical Exam Constitutional: General: He is not in acute distress. Appearance: Normal appearance. He is not ill-appearing, toxic-appearing or diaphoretic. HENT: Head: Normocephalic and atraumatic. Cardiovascular: Rate and Rhythm: Normal rate and regular rhythm. Heart sounds: Normal heart sounds, S1 normal and S2 normal. Pulmonary: Effort: Pulmonary effort is normal. Breath sounds: Normal breath sounds. Abdominal: General: Bowel sounds are normal. Palpations: Abdomen is soft. Tenderness: There is no abdominal tenderness. Skin: General: Skin is warm and dry. Neurological: Mental Status: He is alert and oriented to person, place, and time. Gait: Gait is intact. ASSESSMENT/PLAN: 1. Stomach problems - ICD9: 536.9, ICD10: K31.9 Advised to continue maintaining health Blood sugar. Lifestyle modification advised Advised to f/u with pcp or GI. Go to ER for severe/worsening s/s. Abdirahman Willis APRN.STORE SALES MANAGER documented in this encounter [facility] 05-07-2022 Miscellaneous Notes Left message for patient with negative results.Maren Steinberg LPN Negative for COVID and flu documented in this encounter [facility] 05-06-2022 Instructions Alina Tyler APRN.CNP - 05/06/2022 12:02 PM EDT ASSESSMENT/PLAN: 1. Stomach pain - ICD9: 536.8, ICD10: R10.9 (primary diagnosis) - increase fluid intake - monitor pain, if worsening, go to ER. 2. Flu-like symptoms - ICD9: 780.99, ICD10: R68.89 - COVID WITH FLUA+B, ROUTINE 3. Acute bilateral low back pain without sciatica - ICD9: 724.2, 338.19, ICD10: M54.50 - UA DIP, URINE (POC) Urine Dip Result: Leukocytes: negative Nitrates: Negative Urobilinogen: normal Protein: trace pH: 6.0 Blood: negative Specific [place]: 1,025 Ketones: negative Bilirubin: negative Glucose: trace, 1/10 = 100 - encouraged to have labs completed today that were ordered by cloth examiner hand last week. - Follow-up with your PCP in 3-5 days if symptoms have not improved or sooner if symptoms worsen - Discussed red flags and need for immediate medical evaluation if any occur. - Discussed supportive care treatment with fluids, rest and analgesia. - Discussed expected course of illness Alina Tyler APRN.CNP documented in this encounter [facility] 05-06-2022 History of Presen t illness Narrative Subjective Diarrhea Associated symptoms include abdominal pain. Pertinent negatives include no vomiting. Jose Castro is a 22 year old male who presents with stomach pain, lower back pain, for the past 10 days. He had diarrhea for 8 days but that stopped 2 days ago. He has not had a fever. He has not had any known sick contacts. He has T1DM and states his blood sugars have been higher than normal- around 180. Last HgA1C was 10.2 on 04/29/2022. Review of Systems Constitutional: Positive for malaise/fatigue and weight loss. Negative for fever. Respiratory: Negative. Cardiovascular: Negative. Gastrointestinal: Positive for abdominal pain and nausea. Negative for diarrhea and vomiting. Genitourinary: Negative for dysuria, frequency and urgency. Musculoskeletal: Positive for back pain. BP 116/62 Pulse 98 Temp 36.6 C (97.8 F) (Tympanic) Resp 18 Wt 67 kg (147 lb 9.6 oz) SpO2 99% BMI 18.95 kg/m PAST MEDICAL HISTORY Diagnosis Date Insulin pump status 12/22/2018 Type I (juvenile type) diabetes mellitus without mention of complication, uncontrolled No past surgical history on file. ALLERGIES Patient has no known allergies. MEDICATIONS Insulin [place], Disposable, (BD ULTRAFINE III MINI PEN) 31 gauge x 3/16 Use one daily with insulin if insulin pump fails insulin glargine (BASAGLAR KWIKPEN U-100 INSULIN) 100 unit/mL (3 mL) Inject 26 units subcutaneously daily if insulin pump fails Lancets lancets Use as instructed 3 lancets daily, IDDM, E 10.9 NOVOLOG U-100 INSULIN ASPART 100 unit/mL Inject up to 100 units daily in insulin pump glucagon (BAQSIMI) 3 mg/actuation nasal spray Use 1 [place] in the nose as needed for low blood sugar. May repeat after 15 minutes using a new device if there is no response. blood sugar diagnostic (ACCU-CHEK GUIDE TEST STRIPS) test strip Use as instructed; use 3 strips per day, IDDM, E 10.9 SUBCUTANEOUS INSULIN PUMP (MEDTRONIC MINIMED INSULIN MISC) EPINEPHrine (EPIPEN 2-KELLY) 0.3 mg/0.3 mL auto-injector Inject 0.3 mL intramuscularly as needed. (Patient not taking: Reported on 04/29/2022) FAMILY HISTORY Problem Relation Age of Onset Heart Father Hypertension Maternal Grandmother Cancer Other k Social History Tobacco Use Smoking status: Never Smokeless tobacco: Never Vaping Use Vaping Use: Never used Substance Use Topics Alcohol use: Not Currently Drug use: Never Objective Physical Exam ASSESSMENT/PLAN: 1. Stomach pain - ICD9: 536.8, ICD10: R10.9 (primary diagnosis) - increase fluid intake - monitor pain, if worsening, go to ER. 2. Flu-like symptoms - ICD9: 780.99, ICD10: R68.89 - COVID WITH FLUA+B, ROUTINE 3. Acute bilateral low back pain without sciatica - ICD9: 724.2, 338.19, ICD10: M54.50 - UA DIP, URINE (POC) Urine Dip Result: Leukocytes: negative Nitrates: Negative Urobilinogen: normal Protein: trace pH: 6.0 Blood: negative Specific [place]: 1,025 Ketones: negative Bilirubin: negative Glucose: trace, 02/25 = 100 - encouraged to have labs completed today that were ordered by cloth examiner hand last week. - Follow-up with your PCP in 3-5 days if symptoms have not improved or sooner if symptoms worsen - Discussed red flags and need for immediate medical evaluation if any occur. - Discussed supportive care treatment with fluids, rest and analgesia. - Discussed expected course of illness Alina Tyler APRN.CNP documented in this encounter [facility] 05-02-2022 Miscellaneous Notes BMV form faxed, Transmission ok Copy sent for scanning. Patient aware CLOSED Form completed. Please keep a copy to scan to EMr. Thank you Type of form: Statement of Physician/BMV Form received via walk in When form is completed, Fax form to BMV Form has been forwarded to SUMIT Smith documented in this encounter [facility] 04-29-2022 Instructions Desi García APRN.CNP - 04/29/2022 1:20 PM EDT Have labs done this week or next fasting. 2. Start using the sensor and try auto mode. 3. Have a copy of your eye exam sent to use. 4. Check sugars 3-4x per day and enter into the pump. 5. Follow up in 4-6 wks 6. Send in BMV paperwork. Desi García, MSN, HADOOP ADMINISTRATOR, INDUSTRIAL ENGINEERING-C, CDE Endocrinology [facility] Medical Office [facility] [address] [address] Fax: documented in this encounter [facility] 04-29-2022 History of Presen t illness Narrative Reason for Consultation: DM Type 1 Referring Physician: Doris Victoria APRN.STORE SALES MANAGER [address] [place] [id number] HISTORY OF PRESENT ILLNESS Mr. Castro is a 21 year old male presenting here today for a follow up of DM Type 1. As I recall, he was initially diagnosed with diabetes 2004 (age 5). LV 07/05/2021 A1C today is 10.2 History in addition to diabetes include: None He has not completed previously ordered labs. Meter is Accu chek guide. Having difficulty with it linking Had an eye exam last month and denies diabetes complications Current diabetes regimen is as follows: Basal insulin for back up:basaglar Glucagon: yes Novolog via [employer] 770 pump with Guardian 3 CGM but not using CGM at his time. Pump settings. 00:00= 1.20 2330=1.40 Bolus: Insulin:carb ratio 00:00= 10 1030=10 1400=8 Sensitivity 00:00= 60 Blood glucose target 00:00= 193-362 9288= 100-120 Insulin duration= 3 hr Pump download Auto mode =0% Not using his CGM Site change every 5.5 days Entering 0-2 BG readings daily. Bolused for meals 3 x in 14 days. he is checking his blood glucose 0-2 times daily. he does bring a log book today for review. LDE Blood Sugar Frequency: Hypoglycemia frequency: denies Hypoglycemia awareness: Yes Regarding symptoms of hypoglycemia, he is not experiencing any symptoms such as polyuria, polydipsia, nocturia or rapid weight loss or blurry vision, Overall, the patient has no acute complaints at this time. PAST MEDICAL HISTORY Diagnosis Date Insulin pump status 12/22/2018 Type I (juvenile type) diabetes mellitus without mention of complication, uncontrolled No past surgical history on file. FAMILY HISTORY Problem Relation Age of Onset Heart Father Hypertension Maternal Grandmother Cancer Other k Social History Tobacco Use Smoking status: Never Smokeless tobacco: Never Vaping Use Vaping Use: Never used Substance Use Topics Alcohol use: Not Currently Drug use: Never Allergies As of Date: 04/29/2022 (No Known Allergies) Fully Assessed 04/29/2022 Current Outpatient Medications Medication Sig Dispense Refill SUBCUTANEOUS INSULIN PUMP (MEDTRONIC MINIMED INSULIN MISC) NOVOLOG U-100 INSULIN ASPART 100 unit/mL Inject up to 100 units daily in insulin pump (Patient not taking: Reported on 04/29/2022) 90 mL 3 ONETOUCH ULTRA TEST test strip CHECK BLOOD SUGARS 4 TIMES DAILY. IDDM, E10.9 (Patient not taking: Reported on 04/29/2022) 400 Strip 3 glucagon (GLUCAGON EMERGENCY KIT, HUMAN,) 1 mg injection Inject (1)one mg for insulin shock. (Patient not taking: Reported on 04/29/2022) 2 Each 1 Lancets lancets Use as instructed 4 lancets daily, IDDM, E 10.9 (Patient not taking: Reported on 04/29/2022) 400 Each 3 insulin glargine (BASAGLAR KWIKPEN U-100 INSULIN) 100 unit/mL (3 mL) Inject 26 units subcutaneously daily if insulin pump fails (Patient not taking: Reported on 04/29/2022) 15 mL 1 Insulin [place], Disposable, (BD ULTRAFINE III MINI PEN) 31 gauge x 05/01 Use one daily with insulin if insulin pump fails (Patient not taking: Reported on 04/29/2022) 50 Each 1 EPINEPHrine (EPIPEN 2-KELLY) 0.3 mg/0.3 mL auto-injector Inject 0.3 mL intramuscularly as needed. (Patient not taking: Reported on 04/29/2022) 2 Each 1 No current facility-administered medications for this visit. REVIEW OF SYSTEMS Review of Systems Respiratory: Negative for difficulty breathing. Cardiovascular: Negative for chest pain. Gastrointestinal: Negative for nausea, vomiting, diarrhea and constipation. PHYSICAL EXAMINATION BP 104/68 Pulse 93 Ht 188 cm (6' 2) Wt 67.8 kg (149 lb 6.4 oz) SpO2 100% BMI 19.18 kg/m2 Physical Exam Constitutional: Appearance: Normal appearance. Cardiovascular: Rate and Rhythm: Normal rate and regular rhythm. Pulmonary: Effort: Pulmonary effort is normal. Breath sounds: Normal breath sounds. Skin: General: Skin is warm and dry. Neurological: Mental Status: He is alert and oriented to person, place, and time. Psychiatric: Mood and Affect: Affect is flat. Speech: Speech normal. Behavior: Behavior is cooperative. Cognition and Memory: Cognition normal. Feet:Shoes and socks removed, No deformities, ulcers, calluses, and sensitive to 10 gm monofilament DATA Creatinine Date Value Ref Range Status 09/22/2018 0.59 (L) 0.73 - 1.22 mg/dL Final Hemoglobin A1C (%) Date Value 08/17/2014 14.2 Hemoglobin A1c (%) Date Value 06/21/2015 11.5 Hemoglobin A1C (POCT) (%) Date Value 05/03/2021 12.2 ) No components found for: URINEALBUMIN Cholesterol, Total (mg/dL) Date Value 09/22/2018 193 HDL Cholesterol (mg/dL) Date Value 09/22/2018 52 LDL Cholesterol (mg/dL) Date Value 09/22/2018 128 Triglyceride (mg/dL) Date Value 09/22/2018 65 IMPRESSION: Mr. Castro is a 21 year old male here for evaluation of DM Type 1 complicated by None RECOMMENDATIONS: (E10.9) Type 1 diabetes mellitus without complication (HCC) (primary encounter diagnosis) Comment: Glycemic control is poor. Plan: COMP METABOLIC PANEL, LIPID PANEL BASIC, TSH BLD, ALBUMIN/CREAT RATIO RND UR, Insulin [place], Disposable, (BD ULTRAFINE III MINI PEN) 31 gauge x 3/16, insulin glargine (BASAGLAR KWIKPEN U-100 INSULIN) 100 unit/mL (3 mL), Lancets lancets, NOVOLOG U-100 INSULIN ASPART 100 unit/mL, glucagon (BAQSIMI) 3 mg/actuation nasal spray, HEMOGLOBIN A1C (POC), blood sugar diagnostic (ACCU-CHEK GUIDE TEST STRIPS) test strip Have labs done this week or next fasting. Start using the sensor and try auto mode. Have a copy of your eye exam sent to use. Check sugars 3-4x per day and enter into the pump. Bolus for meals/corrections. Follow up in 4-6 wks Send in BMV paperwork. (Z96.41) Insulin pump status Comment/Plan: Medtronic 770 G with Guardian 3 CGM (not actively using) (Z91.199) Poor compliance Comment/Plan: not consistently bolusing/taking insulin, doing corrections, entering carbs or monitoring his BG I spent a total of 30 minutes on the date of the service which included preparing to see the patient, [id number] patient care, completing clinical documentation, obtaining and/or reviewing separately obtained history, performing a medically appropriate examination, counseling and educating the patient/family/caregiver, ordering medications, tests, or procedures, and communicating results to the patient/family/caregiver. Desi García, MSN, HADOOP ADMINISTRATOR, INDUSTRIAL ENGINEERING-C, CDE Endocrinology [facility] Medical Office [facility] [address] [place] [address] Fax: documented in this encounter [facility] 03-13-2022 Miscellaneous Notes Form faxed, Transmission ok CLOSED LV 07/05/21. No follow up is scheduled. I did sign the form. Please contact patient to set up follow up Thank you Type of letter/form/fax request: HCP Form Form received from:[employer] Placed on Provider (HOUSTON García)for completion Completed form needs to be faxed to [phone] documented in this encounter [facility] 07-05-2021 Instructions Desi García APRN.[place] - 07/05/2021 9:53 AM EDT Pump settings. 00:00= 1.20 2330=1.40 Bolus: Insulin:carb ratio 00:00= 10 1030=10 1400=8 Sensitivity 00:00= 60 Blood glucose target 00:00= 774-308 5600= 100-120 Insulin duration= 3 hr Have a copy of your eye exam sent to us. Have labs done in the next 2 wks. Follow up in 2 months. Desi García, MSN, VAIBHAV, INDUSTRIAL ENGINEERING-C, CDE Endocrinology [facility] Medical Office [facility] [address]/[place] [address] Fax: documented in this encounter [facility] 07-05-2021 History of Presen t illness Narrative Reason for Consultation: DM Type 1 Referring Physician: Doris Victoria APRN.STORE SALES MANAGER [address] [place] [id number] HISTORY OF PRESENT ILLNESS Mr. Castro is a 21 year old male presenting here today for a follow up of DM Type 1. As I recall, he was initially diagnosed with diabetes 2004 (age 5). LV 05/03/21 A1C 12.2 on 05/03/21 Interval visit due to poor glucose control. States he and his mom tried to call [employer] about a new pump and CGM but was unable to connect. History in addition to diabetes include: None Exacerbating factors include: none Current diabetes regimen is as follows: Basal insulin for back up:basaglar Glucagon: yes Novolog via Medtronic paradigm insulin pump--unable to download older pump Pump settings. 00:00= 1.20 2330=1.40 Bolus: Insulin:carb ratio 00:00= 12 1030=11 1400=10 Sensitivity 00:00= 60 Blood glucose target 00:00= 714-532 0816= 100-120 Insulin duration= 3 hr Pump download: pump too old to download; software no longer supported he is checking his blood glucose 3 times daily. Checking in the late afternoon, evening and AM he does bring a log book today for review. LDE Blood Sugar Frequency: Works 6 AM to 2 pm (break 2:30-3:30) and then back to work until 10:30 at night.--[employer]. FBS 100-200 Afternoon: 200-250 Evening 100-200 Hypoglycemia frequency: rare; Lowest of 57 after skipping breakfast Hypoglycemia awareness: Yes Regarding symptoms of hypoglycemia, he is not experiencing any symptoms such as polyuria, polydipsia, nocturia or rapid weight loss or blurry vision, Overall, the patient has no acute complaints at this time. PAST MEDICAL HISTORY Diagnosis Date Insulin pump status 12/22/2018 Type I (juvenile type) diabetes mellitus without mention of complication, uncontrolled No past surgical history on file. FAMILY HISTORY Problem Relation Age of Onset Heart Father Hypertension Maternal Grandmother Cancer Other k Social History Tobacco Use Smoking status: Never Smoker Smokeless tobacco: Never Used Vaping Use Vaping Use: Never used Substance Use Topics Alcohol use: Not Currently Drug use: Never Allergies As of Date: 07/05/2021 (No Known Allergies) Fully Assessed 07/05/2021 Current Outpatient Medications Medication Sig Dispense Refill ONETOUCH ULTRA TEST test strip CHECK BLOOD SUGARS 4 TIMES DAILY. IDDM, E10.9 400 Strip 3 NOVOLOG U-100 INSULIN ASPART 100 unit/mL Inject up to 100 units daily in insulin pump 90 mL 1 glucagon (GLUCAGON EMERGENCY KIT, HUMAN,) 1 mg injection Inject (1)one mg for insulin shock. 2 Each 1 Lancets lancets Use as instructed 4 lancets daily, IDDM, E 10.9 400 Each 3 insulin glargine (BASAGLAR KWIKPEN U-100 INSULIN) 100 unit/mL (3 mL) Inject 26 units subcutaneously daily if insulin pump fails 15 mL 1 Insulin [place], Disposable, (BD ULTRAFINE III MINI PEN) 31 gauge x 3/16 Use one daily with insulin if insulin pump fails 50 Each 1 EPINEPHrine (EPIPEN 2-KELLY) 0.3 mg/0.3 mL auto-injector Inject 0.3 mL intramuscularly as needed. 2 Each 1 SUBCUTANEOUS INSULIN PUMP (MEDTRONIC MINIMED INSULIN MISC) No current facility-administered medications for this visit. REVIEW OF SYSTEMS Review of Systems Respiratory: Negative for difficulty breathing. Cardiovascular: Negative for chest pain. Gastrointestinal: Negative for nausea, vomiting, diarrhea and constipation. PHYSICAL EXAMINATION BP 95/65 (BP Site: Right Arm, BP Position: Sitting, BP Cuff Size: Regular Adult) Pulse 110 Ht 184.2 cm (6' 0.52) Wt 65.7 kg (144 lb 12.8 oz) SpO2 98% BMI 19.36 kg/m2 Physical Exam Constitutional: Appearance: Normal appearance. Cardiovascular: Rate and Rhythm: Normal rate and regular rhythm. Pulmonary: Effort: Pulmonary effort is normal. Breath sounds: Normal breath sounds. Skin: General: Skin is warm and dry. Neurological: Mental Status: He is alert and oriented to person, place, and time. Psychiatric: Mood and Affect: Mood normal. Behavior: Behavior normal. DATA Creatinine Date Value Ref Range Status 09/22/2018 0.59 (L) 0.73 - 1.22 mg/dL Final Hemoglobin A1C (%) Date Value 08/17/2014 14.2 Hemoglobin A1c (%) Date Value 06/21/2015 11.5 Hemoglobin A1C (POCT) (%) Date Value 05/03/2021 12.2 ) No components found for: URINEALBUMIN Cholesterol, Total (mg/dL) Date Value 09/22/2018 193 HDL Cholesterol (mg/dL) Date Value 09/22/2018 52 LDL Cholesterol (mg/dL) Date Value 09/22/2018 128 Triglyceride (mg/dL) Date Value 09/22/2018 65 IMPRESSION: Mr. Castro is a 21 year old male here for evaluation of DM Type 1 complicated by None RECOMMENDATIONS: (E10.9) Type 1 diabetes mellitus without complication (HCC) (primary encounter diagnosis) Comment: glycemic control is poor. Pump setting adjusted. Recommend pump upgrade and CGM. Plan: COMP METABOLIC PANEL, LIPID PANEL BASIC, ALBUMIN/CREAT RATIO RND UR, TSH BLD, NOVOLOG U-100 INSULIN ASPART 100 unit/mL Pump settings. 00:00= 1.20 2330=1.40 Bolus: Insulin:carb ratio 00:00= 10 1030=10 1400=8 Sensitivity 00:00= 60 Blood glucose target 00:00= 882-698 6855= 100-120 Insulin duration= 3 hr Have a copy of your eye exam sent to us. Have labs done in the next 2 wks. Follow up in 2 months. (Z96.41) Insulin pump status Comment/Plan: Medtronic paradigm revel 523;Contact [employer] about possible pump upgrade and CGM (continuous glucose monitor). I will also email our medtronic rep. I spent a total of 25 minutes on the date of the service which included preparing to see the patient, [id number] patient care, completing clinical documentation, obtaining and/or reviewing separately obtained history, performing a medically appropriate examination, counseling and educating the patient/family/caregiver and ordering medications, tests, or procedures. Desi García, MSN, HADOOP ADMINISTRATOR, INDUSTRIAL ENGINEERING-C, CDE Endocrinology [facility] Medical Office [facility] [address] [place] [address] Fax: documented in this encounter [facility] 05-07-2020 History of Presen t illness Narrative Radiology Service Progress Note PATIENT NAME: Jose Castro DATE OF SERVICE: May 07, 2020 TIME: 8:07 PM PATIENT IDENTITY VERIFICATION COMPLETED USING TWO (2) IDENTIFIERS: Name and Date of confirmed by patient verbally. FALL SCREENING: Has the patient had 2 falls in the last year or 1 fall with injury or currently using an Ambulatory Assistive Device (Walker, Cane, Wheelchair, Crutches, etc.)? No PATIENT GENDER DATA: Male PATIENT RELEVANT IMPLANT DATA REVIEWED: Yes RADIOLOGY DEPARTMENT: General X-ray: Exam(s) Completed: Lower Extremity X-Ray(s): Knee, AP / Lat / Tunne / Merchant Right and Wt. Bearing: PERIPHERAL IV DATA: Not applicable SIGNED BY: RT Tana May 07, 2020 8:07 PM documented in this encounter [facility] Evaluation note Diagnosis Type 1 diabetes mellitus without complication (HCC)- Primary Type I (juvenile type) diabetes mellitus without mention of complication, not stated as uncontrolled Insulin pump status [facility] Type 1 diabetes mellitus without complication (HCC)- Primary Type I (juvenile type) diabetes mellitus without mention of complication, not stated as uncontrolled Insulin pump status Poor compliance Personal history of noncompliance with medical treatment, presenting hazards to health [facility]* Diagnosis Stomach pain- Primary Dyspepsia and other specified disorders of function of stomach Flu-like symptoms Other general symptoms Acute bilateral low back pain without sciatica documented in this encounter [facility] note* Diagnosis Stomach problems- Primary Unspecified functional disorder of stomach documented in this encounter [facility] note* Diagnosis Type 1 diabetes mellitus without complication (HCC)- Primary Type I (juvenile type) diabetes mellitus without mention of complication, not stated as uncontrolled Insulin pump status Poor compliance Personal history of noncompliance with medical treatment, presenting hazards to health documented in this encounter [facility] note* Diagnosis Acute pain of right knee documented in this encounter [facility] note* Diagnosis Type 1 diabetes mellitus without complication (HCC)- Primary Type I (juvenile type) diabetes mellitus without mention of complication, not stated as uncontrolled Insulin pump status Poor compliance Personal history of noncompliance with medical treatment, presenting hazards to health documented in this encounter [facility] Reason for Referral Specialty Diagnoses / Procedures Referred By Caroline fonseca Referred To Contact Diagnoses Type 1 diabetes mellitus without complication (HCC) Desi García APRN.[facility] [address] [address] Referral ID Status Reason Start Date Expiration Date Visits Re quested Visits Authorized [id number] Closed 1 1 Summary Purpose Family History No Family History Records FoundNo Family History Records Found Advance Directives No Advanced Directives Records FoundNo Advanced Directives Records Found Additional Source Comments Source Comments (unrecognize d section and content) In the event this informatio n is protected by the Federal Confidentiality of Alcohol and Drug Abuse Patient Records regulations: The Federal rules restrict any use of the information to criminally investigate or prosecute any alcohol or drug abuse patient.[facility] the event this information is protected by the Federal Confidentiality of Alcohol and Drug Abuse Patient Records regulations: The Federal rules restrict any use of the information to criminally investigate or prosecute any alcohol or drug abuse patient.[facility] the event this information is protected by the Federal Confidentiality of Alcohol and Drug Abuse Patient Records regulations: The Federal rules restrict any use of the information to criminally investigate or prosecute any alcohol or drug abuse patient.[facility] the event this information is protected by the Federal Confidentiality of Alcohol and Drug Abuse Patient Records regulations: The Federal rules restrict any use of the information to criminally investigate or prosecute any alcohol or drug abuse patient.[facility] the event this information is protected by the Federal Confidentiality of Alcohol and Drug Abuse Patient Records regulations: The Federal rules restrict any use of the information to criminally investigate or prosecute any alcohol or drug abuse patient.[facility] the event this information is protected by the Federal Confidentiality of Alcohol and Drug Abuse Patient Records regulations: The Federal rules restrict any use of the information to criminally investigate or prosecute any alcohol or drug abuse patient.[facility] the event this information is protected by the Federal Confidentiality of Alcohol and Drug Abuse Patient Records regulations: The Federal rules restrict any use of the information to criminally investigate or prosecute any alcohol or drug abuse patient.[facility] the event this information is protected by the Federal Confidentiality of Alcohol and Drug Abuse Patient Records regulations: The Federal rules restrict any use of the information to criminally investigate or prosecute any alcohol or drug abuse patient.[facility] the event this information is protected by the Federal Confidentiality of Alcohol and Drug Abuse Patient Records regulations: The Federal rules restrict any use of the information to criminally investigate or prosecute any alcohol or drug abuse patient.[facility] the event this information is protected by the Federal Confidentiality of Alcohol and Drug Abuse Patient Records regulations: The Federal rules restrict any use of the information to criminally investigate or prosecute any alcohol or drug abuse patient.[facility] the event this information is protected by the Federal Confidentiality of Alcohol and Drug Abuse Patient Records regulations: The Federal rules restrict any use of the information to criminally investigate or prosecute any alcohol or drug abuse patient.[facility] the event this information is protected by the Federal Confidentiality of Alcohol and Drug Abuse Patient Records regulations: The Federal rules restrict any use of the information to criminally investigate or prosecute any alcohol or drug abuse patient.[facility] the event this information is protected by the Federal Confidentiality of Alcohol and Drug Abuse Patient Records regulations: The Federal rules restrict any use of the information to criminally investigate or prosecute any alcohol or drug abuse patient.[facility] the event this information is protected by the Federal Confidentiality of Alcohol and Drug Abuse Patient Records regulations: The Federal rules restrict any use of the information to criminally investigate or prosecute any alcohol or drug abuse patient.[facility] Reason for Visit (unrecogniz ed section and content) Reason Comments Insulin Dependent Diabetes Mellitus Reason Comments HCP form [employer] Reason Comments Insulin Dependent Diabetes Mellitus Reason Comments Forms Reason Comments Diarrhea Pt reported abd pain , denied urinary sxs, c.o lower back pain, x1.5 wks. Reason Comments Results Reason Comments Nausea & Vomiting Diarrhea, fatigue, s tomach pain x 3 months Reason Comments MEDTRONIC FORM Reason Comments Medtronic Form RX for Pump, Diabeti c Supplies, and Transmitter/Sensor 4 Reason Comments Certificate of Medical Necessity Medtron ic Reason Comments Follow Up Established Patient Insulin Dependent Diabetes Mellitus Reason Comments BMV form Care Teams (unrecognized sec tion and content) Web Mobile Designer Relationship Specialty Start Date End Date Danielle Paredes MD [address] [place] [address] [id number] PCP - General Family Practice 03/08/19 Web Mobile Designer Relationship Specialty Start Date End Date Danielle Paredes MD [address] [place] [address] [id number] PCP - General Family Medicine 03/08/19 Web Mobile Designer Relationship Specialty Start Date End Date Danielle Paredes MD [address] [place] [id number] PCP - General Family Medicine 03/08/19 Web Mobile Designer Relationship Specialty Start Date End Date Danielle Paredes MD [address] [place] [address] PCP - General Family Medicine 03/08/19 Web Mobile Designer Relationship Specialty Start Date End Date Danielle Paredes MD [address] [place] [address] PCP - General Family Medicine 03/08/19 Web Mobile Designer Relationship Specialty Start Date End Date Danielle Paredes MD [address] [place] [address] PCP - General Family Medicine 03/08/19 Web Mobile Designer Relationship Specialty Start Date End Date Danielle Paredes MD [address] [place] [address] PCP - General Family Medicine 03/08/19 Web Mobile Designer Relationship Specialty Start Date End Date Danielle Paredes MD [address] [place] [address] PCP - General Family Medicine 03/08/19 Web Mobile Designer Relationship Specialty Start Date End Date Danielle Paredes MD [address] [place] [address] PCP - General Family Medicine 03/08/19 Web Mobile Designer Relationship Specialty Start Date End Date Danielle Paredes MD [address] [place] [address] PCP - General Family Medicine 03/08/19 Web Mobile Designer Relationship Specialty Start Date End Date Danielle Paredes MD [address] [place] [address] PCP - General Family Medicine 03/08/19 Web Mobile Designer Relationship Specialty Start Date End Date Danielle Paredes MD [address] [place] [address] PCP - General Family Medicine 03/08/19 Web Mobile Designer Relationship Specialty Start Date End Date Danielle Paredes MD [address] [facility] [place] [address] PCP - General Family Medicine 03/08/19 (unrecognized sect ion and content) No Status Records FoundNo Status Records Found INFORMATION SOURCE (unrecogn ized section and content) DATE CREATED AUTHOR 09/27/2023 [facility] DATE CREATED AUTHOR '[facility] 08/11/2024 [facility] FOR RECORDS PERTAINING TO PATIENTS WHO ARE OR HAVE BEEN ENROLLED IN A CHEMICAL DEPENDENCY/SUBSTANCEABUSE PROGRAM, SOME INFORMATION MAY BE OMITTED. This clinical summary was aggregated from multiple sources. Caution should be exercised in using it in the provision of clinical care. This summary normalizes information from multiple sources, and as a consequence, information in this document may materially change the coding, format and clinical context of patient data. In addition, data may be omitted in some cases. CLINICAL DECISIONS SHOULD BE BASED ON THE PRIMARY CLINICAL RECORDS. [employer] provides no warranty or guarantee of the accuracy or completeness of information in this document.
--- OUTSIDE RECORDS SUMMARY | 2024-09-26 01:18 | XMS RPT_ITS | CCD ---
Author Organization [facility] Care Team Providers Care Sales Development Specialist Name Role Phone [place] HUMAN RESOURCE INTERN, Amada K Unavailable Unavailable [place] HUMAN RESOURCE INTERN, Amada K Unavailable Unavailable Vick NEEDLE PROCESS FELT GOODS SUPERVISOR, Jennifer L Unavailable Unavailable Vick NEEDLE PROCESS FELT GOODS SUPERVISOR, Jennifer L Unavailable Unavailable Vick NEEDLE PROCESS FELT GOODS SUPERVISOR, Jennifer L Unavailable Unavailable Reggie CHANG, Danielle Szymanski Primary Care Provider Danielle Paredes MD Primary Care Provider Danielle Paredes MD Primary Care Provider William Castillo Attending Unavailable Jose Haley Primary Care Unavailable Danielle Paredes MD Primary Care Provider [phone] DANIELLE PAREDES Primary Care Unavailable DESI GARCÍA Attending Unavailable Allergies Allergy Classification Reported Allergen(s) Allergy Type Date of Onset Reaction(s) Facility (1 source) Shellfish Drug allergy (disorder) 09-10-2023 [facility] Repository Medications Current Medications Medication Drug Class(es) Dates Sig (Normalized) Sig (Original) [id number] 0.3 ml EPINEPHrine 1 mg/ml auto-injector (14 [...] or unconscious with severe hypoglycemia GLUCAGON (RDNA) [id number] Lora Blake APPAREL RENTAL CLERK Comment on above: Inject (1)one mg for insulin shock. Use 1 Shepherd in the n ose as needed for [...] units daily in insulin pump INSULIN ASPART [id number] Lora Blake NP Start: 06-24-2016 End: 06-24-2016 NOVOLOG 100 UNIT/ML SOLN Use 4-5 times and as needed with insulin pump. INSULIN ASPART [id number] Amada Rice CMA Start: 06-24-2016 End: 09-24-2024 NOVOLOG 100 UNIT/ML SOLN Use s up to 30 units daily in insulin pump INSULIN ASPART [id number] Lora Blake NP Start: 06-24-2016 End: 06-24-2016 NOVOLOG 100 UNIT/ML SOLN Use 4-5 times and as needed with insulin pump. INSULIN ASPART [id number] Lora Blake NP Start: 06-24-2016 NOVOLOG 100 UN IT/ML SOLN Use 4-5 times and as needed with insulin pump. INSULIN ASPART [id number] Amada Rice CMA NOVOLOG 100 UNIT /ML SOLN Use 4-5 times and as needed with insulin pump. INSULIN ASPART [id number] Dana Weaver LPN Comment on above: Inject [...] 08-10-2024 CNOV Office Visit (ENDMED) JOSE CASTRO ([id number]) 00 M Date Time Provider Department 08/10/24 11:00 AM DESI GARCÍA During your visit today, we recorded the following information about you: Pulse Respiration Blood pressure Weight 88/minute 16/minute 96/60 69 kg Height 1.88 m Desi García APRN.CNP 08/10/2024 12:44 PM Signed Reason for Consultation: DM Type 1 Referring Physician: Doris Victoria APRN.PROFESSOR OF PHILOSOPHY [address] [address] HISTORY OF PRESENT ILLNESS Mr. Castro is [...] exam in the last. Denies retinopathy. 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 Notes lower [...] Sensitivity 00:00= 60 Blood glucose target 00:00= 527-850 2093= 100-120 Insulin duration= 3 hr Pump download [...] IDDM, E 10.9 150 Strip 11 Insulin Wiley, Disposable, (BD ULTRAFINE III MINI PEN) 31 gauge x 3/16 Use one daily with insulin if insulin pump fails 50 Each 1 insulin glargine (BASAGLAR KWIKPEN U-100 INSULIN) 100 unit/mL (3 mL) Inject 26 units subcutaneously daily if insulin pump fails 15 mL 1 glucagon (BAQSIMI) 3 mg/actuation nasal spray Use 1 Shepherd in the nose as needed for low [...] Neurological: Mental (more content not included)... Normal [facility] Bar 08-10-2024 CNPN Telephone (RescueTime) JOSE CASTRO ([id number]) 00 M Date Time Provider Department 08/10/24 DESI GARCÍA ENDMED During your visit today, we recorded the following information about you: Desi García APRN.CNP 08/10/2024 12:38 PM Signed BMV form completed. Please fax to BMV. Keep a copy for EMR Thank you Katerina Crawford RN 08/11/2024 1:10 PM Signed BMV form faxed to the [facility]. Copy made and sent to [...] daily if insulin pump fails - Insulin Wiley, Disposable, (BD ULTRAFINE III MINI PEN) 31 [...] Status:Closed by KATERINA CRAWFORD on 08/11/24 Normal [facility] HEMOGLOBIN A1C (POC)on 08-10 HbA1c (Bld) [Mass fraction] 10.8 % Abnormal 4.3 - 5.6 % [facility] Comment on above: Location:[facility], [address] [place], [address] Point of care (POC) Hemoglobin A1c (HGBA1C) [...] specific diabetes management situations: The POC device educational speech language clinician provides a normal range of 4.2% to 6.5% for the HGBA1C POC test. However, the [place] [employer] guidelines indicate that patients with [...] Interpretation and review of laboratory results [facility] Tele[facility] (ENDMED) JOSE CASTRO ([id number]) 00 M Date Time Provider Department 04/01/24 DESI GARCÍA During your visit today, we recorded the following information about you: Nerissa Ruiz MA 04/01/2024 12:18 PM Signed Form on docs desk/basket for review from: [employer] Please review and sign. Needs to be faxed to: [phone] Last office notes attached. Desi García APRN.[place] 04/01/2024 3:09 PM Signed Form signed. Thank you Jarrod Faulkner MA 04/01/2024 3:54 PM Signed [email or web address] on April 01, 2024; transmission ok. Allergies As of Date: 04/01/2024 (No Known Allergies) Date Reviewed: 05/29/2023 Reviewed by: Desi García APRN.PROFESSOR OF PHILOSOPHY - Fully Assessed Reason for Visit: Certificate [...] per day, IDDM, E 10.9 - Insulin Wiley, Disposable, (BD ULTRAFINE III MINI PEN) 31 gauge x 3/16 Use one daily with insulin if insulin pump fails - insulin glargine (BASAGLAR KWIKPEN U-100 INSULIN) 100 unit/mL (3 mL) Inject 26 units subcutaneously daily if insulin pump fails - glucagon (BAQSIMI) 3 mg/actuation nasal spray Use 1 Shepherd in the nose as needed for low [...] Encounter Status:Closed by JARROD FAULKNER on 04/01/[address] [facility] Bar 10-26-2023 RAMSEY Telephone (RescueTime) JOSE CASTRO ([id number]) 00 M Date Time Provider Department 10/26/23 DESI GARCÍA During your visit today, we recorded the following information about you: Lukasz Marcano MA 10/26/2023 11:12 AM Signed Form on docs desk/basket for review from [employer]. Please review and sign. Needs to be faxed to [phone]. Attached last office notes. RX for Pump, Diabetic Supplies, and Transmitter/Sensor 4 Desi García APRN.[place] 10/27/2023 7:45 AM Signed Form signed. Thank you Lukasz Marcano MA 10/27/2023 8:07 AM Signed Form Faxed, Transmission ok CLOSED Allergies As of Date: 10/26/2023 (No Known Allergies) Date Reviewed: 05/29/2023 Reviewed by: Desi García APRN.PROFESSOR OF PHILOSOPHY - Fully Assessed Reason for Visit: [employer] [...] per day, IDDM, E 10.9 - Insulin Wiley, Disposable, (BD ULTRAFINE III MINI PEN) 31 gauge x /16 Use one daily with insulin if insulin pump fails - insulin glargine (BASAGLAR KWIKPEN U-100 INSULIN) 100 unit/mL (3 mL) Inject 26 units subcutaneously daily if insulin pump fails - glucagon (BAQSIMI) 3 mg/actuation nasal spray Use 1 Shepherd in the nose as needed for low [...] Status:Closed by LUKASZ MARCANO on 10/27/23 Normal [facility] Emergency Department Summary on 09-10-2023 Emergency Department Summary [facility] Medical Records Department [address] [place] [address] Emergency Department Summary 09/10/23 MR#: [id number] Acct: [id number] Name: JOSE CASTRO Rep #: [id number] : 2000 23 From: William Castillo MD PCP: Dr. Jose Haley MD Status:DEP ER Location: ED HPI History of Present Illness Chief Complaint: Laceration Narrative Narrative: Patient is a 23-year-old male with history of type 1 diabetes who presents to the emergency department for a laceration to the left middle finger. Patient states that he works at [email or web address], when he woke up today, he was not feeling well like he might be coming down with a cold or a virus. Patient is he was somewhat dizzy today. When he was cutting, he cut a piece of his finger on a knife. Tetanus vaccination unknown. Patient is here for evaluation. Patient is once he saw the blood, he did feel slightly dizzy. [facility] Medical History (Updated 09/10/23 @ 23:[address] William Castillo MD) Diabetes type 1, controlled Home Medications ???Medication ???Instructions ???Recorded ???Last Taken ???Type glucagon (human recombinant) 1 mg 1 mg IM ONCE 03/26/17 Unknown History injection kit (Glucagon Emergency Kit (human-recomb)) OneTouch Ultra Test (blood sugar #550 ea 04/11/17 Unknown Rx diagnostic) FreeStyle Bianka 10 Day Kendall #1 ea 09/16/17 Unknown Rx (flash glucose [...] (Updated 04/26/18 @ 16:29 by Lora Blake APPAREL RENTAL CLERK, APPAREL RENTAL CLERK-C) Smoking Status: Never smoker second hand exposure: [...] Patient al (more content not included)... Normal [facility] HEMOGLOBIN A1C (POC)on 05-28 HbA1c (Bld) [Mass fraction] 12.7 % Abnormal 4.3 - 5.6 % [facility] UA DIP, URINE (POC)on 2022 BILIRUBIN UA (POCT) Negative Negative [facility] CLARITY UA (POCT) Clear [facility] COLOR UA (POCT) Yellow [facility] GLUCOSE UA (POCT) 100 mg/dL Abnormal Negative mg/dL [facility] HEMOGLOBIN/BLOOD UA (POCT) Negative Negative [facility] KETONE UA (POCT) Negative Negative mg/dL [facility] LEUKOCYTES UA (POCT) Negative Negative [facility] NITRITE UA (POCT) Negative Negative [facility] PH UA (POCT) 6.0 4.5 - 8.0 [facility] Protein Ql (U) Trace Abnormal Negative mg/dL [facility] SPECIFIC GRAVITY UA (POCT) 1.025 1.005 - 1.030 [facility] UROBILINOGEN UA (POCT) 0.2 E.U./dL Normal E.U./dL [facility] HEMOGLOBIN A1C (POC)on 04-29 HbA1c (Bld) [Mass fraction] 10.2 % Abnormal 4.2 - 5.6 % [facility] XR Knee - right 4 Viewson IMPRESSION: No acute fracture or malalignment. Automobile Spring Repairer: DARON Transcribe Date/Time: May 07 2020 8:47P Dictated by : KULWINDER COYLE MD This examination was interpreted and the report reviewed and electronically signed by: KULWINDER COYLE MD on May 07 2020 8:49PM [facility] DIVISION OF RADIOLOGY * * *Final [...] surfaces are preserved. DIVISION OF RADIOLOGY Provider, [facility] [place] - 05/07/2020 * * *Final Report* * [...] IMPRESSION IMPRESSION: No acute fracture or malalignment. Automobile Spring Repairer[facility] Transcribe Date/Time: May 07 2020 8:47P Dictated by : KULWINDER COYLE MD This examination was interpreted and the report reviewed and electronically signed by: KULWINDER COYLE MD on May 07 2020 8:49PM [facility] Radiology Study observation (narrative) [facility] XR Knee - right 4 ViewsOrder ed By: [facility] Provider on 05-07-2020 [facility] Office Visiton 09-25-2016 Protein mass conc Done [facility] Work Phone: Office Visit: Transition of care- [facility]CFon 05-19-2016 Adolescent depression screening assessment Adolescent depression screening assessment Invalid Interpretation Code [facility] Work Phone: Adult depression screening assessment Adolescent depression screening assessment [facility] Work Phone: Documentation of current medications (procedure) Done Invalid Interpretation Code [facility] Work Phone: Fall risk assessment No [facility] Work Phone: Protein mass conc Done [facility] Work Phone: Tobacco smoking status NHIS Never [facility] Work Phone: Tobacco smoking status HIIS Never smoker [facility] Work Phone: Tobacco use [facility] Never smoker Invalid Interpretation Code [facility] Work Phone: Chart Maintenanceon 06-21-19 16 Cholesterol 183 mg/dL [facility] Work Phone: HbA1c 11.5 % [facility] Work Phone: HDL Cholesterol 64 mg/dL [facility] Work Phone: LDL Cholesterol 103 mg/dL [facility] Work Phone: Thyroid stimulating hormone (TSH) 1.530 u[iU]/mL [facility] Work Phone: Triglyceride 78 mg/dL [facility] Work Phone: Vital Signs Date Time Vital Sign Value Performing Clinician Facility 08-10-2024 11:05-0400 Body height 188 cm [facility] CUTTING TORCH OPERATOR.[facility] Work Phone: [facility] 08-10-2024 11:05-0400 Body mass index (BMI) [Ratio] 19.52 kg/m2 [facility] CUTTING TORCH OPERATOR.PROFESSOR OF PHILOSOPHY Work Phone: [facility] 08-10-2024 11:05-0400 Body weight 69 kg [facility] CUTTING TORCH OPERATOR.PROFESSOR OF PHILOSOPHY Work Phone: [facility] 08-10-2024 11:05-0400 Diastolic blood pressure 60 mm[Hg] [facility] CUTTING TORCH OPERATOR.PROFESSOR OF PHILOSOPHY Work Phone: [facility] 08-10-2024 11:05-0400 Heart rate 88 /min [facility] CUTTING TORCH OPERATOR.PROFESSOR OF PHILOSOPHY Work Phone: [facility] 06-25-2025 11:05-0400 Respiratory rate 16 /min Desi Kupiec CUTTING TORCH OPERATOR.PROFESSOR OF PHILOSOPHY Work Phone: [facility] 08-10-2024 11:05-0400 SaO2% (BldA) [Mass fraction] 97 % Desi Kupiec CUTTING TORCH OPERATOR.PROFESSOR OF PHILOSOPHY Work Phone: [facility] 08-10-2024 11:05-0400 Systolic blood pressure 96 mm[Hg] Desi Kupiec CUTTING TORCH OPERATOR.PROFESSOR OF PHILOSOPHY Work Phone: [facility] 05-29-2023 10:53-0400 [facility] CUTTING TORCH OPERATOR.PROFESSOR OF PHILOSOPHY Work Phone: [facility] 05-29-2023 10:53-0400 Body weight 65.8 kg [facility] CUTTING TORCH OPERATOR.PROFESSOR OF PHILOSOPHY Work Phone: [facility] 05-29-2023 10:53-0400 Diastolic blood pressure 74 mm[Hg] Desi Kupiec CUTTING TORCH OPERATOR.PROFESSOR OF PHILOSOPHY Work Phone: [facility] 05-29-2023 10:53-0400 Heart rate 105 /min Desi Kupiec CUTTING TORCH OPERATOR.PROFESSOR OF PHILOSOPHY Work Phone: [facility] 05-29-2023 10:53-0400 Respiratory rate 16 /min [facility] CUTTING TORCH OPERATOR.PROFESSOR OF PHILOSOPHY Work Phone: [facility] 05-29-2023 10:53-0400 SaO2% (BldA) [Mass fraction] 99 % [facility] CUTTING TORCH OPERATOR.PROFESSOR OF PHILOSOPHY Work Phone: [facility] 05-29-2023 10:53-0400 Systolic blood pressure 108 mm[Hg] Desi Kupiec CUTTING TORCH OPERATOR.PROFESSOR OF PHILOSOPHY Work Phone: [facility] 10-23-2022 07:15-0400 Body temperature 96.91 [degF] Abdirahman Willis CUTTING TORCH OPERATOR.PROFESSOR OF PHILOSOPHY Work Phone: [facility] 10-23-2022 07:15-0400 Body weight 64.5 kg Abdirahman Lazaro CUTTING TORCH OPERATOR.PROFESSOR OF PHILOSOPHY Work Phone: [facility] 10-23-2022 07:15-0400 Diastolic blood pressure 74 mm[Hg] Abdirahman Lazaro CUTTING TORCH OPERATOR.PROFESSOR OF PHILOSOPHY Work Phone: [facility] 10-23-2022 07:15-0400 Heart rate 100 /min Abdirahman Lazaro CUTTING TORCH OPERATOR.PROFESSOR OF PHILOSOPHY Work Phone: [facility] 10-23-2022 07:15-0400 Respiratory rate 21 /min Abdirahman Lazaro CUTTING TORCH OPERATOR.PROFESSOR OF PHILOSOPHY Work Phone: [facility] 10-23-2022 07:15-0400 SaO2% (BldA) [Mass fraction] 100 % Abdirahman Lazaro CUTTING TORCH OPERATOR.PROFESSOR OF PHILOSOPHY Work Phone: [facility] 10-23-2022 07:15-0400 Systolic blood pressure 104 mm[Hg] Abdirahman Lazaro CUTTING TORCH OPERATOR.PROFESSOR OF PHILOSOPHY Work Phone: [facility] 05-06-2022 11:35-0400 Body temperature 97.81 [degF] Alina Praisler-Wood CUTTING TORCH OPERATOR.PROFESSOR OF PHILOSOPHY Work Phone: [facility] 05-06-2022 11:35-0400 Body weight 66.95 kg Alina Praisler-Wood CUTTING TORCH OPERATOR.PROFESSOR OF PHILOSOPHY Work Phone: [facility] 05-06-2022 11:35-0400 Diastolic blood pressure 62 mm[Hg] Alina Praisler-Wood CUTTING TORCH OPERATOR.PROFESSOR OF PHILOSOPHY Work Phone: [facility] 05-06-2022 11:35-0400 Heart rate 98 /min Alina Praisler-Wood CUTTING TORCH OPERATOR.PROFESSOR OF PHILOSOPHY Work Phone: [facility] 05-06-2022 11:35-0400 Respiratory rate 18 /min Alina Praisler-Wood CUTTING TORCH OPERATOR.PROFESSOR OF PHILOSOPHY Work Phone: [facility] 05-06-2022 11:35-0400 SaO2% (BldA) [Mass fraction] 99 % Alina Praisler-Wood CUTTING TORCH OPERATOR.PROFESSOR OF PHILOSOPHY Work Phone: [facility] 05-06-2022 11:35-0400 Systolic blood pressure 116 mm[Hg] Alina TerrellDavid CUTTING TORCH OPERATOR.PROFESSOR OF PHILOSOPHY Work Phone: [facility] 04-29-2022 13:02-0400 Body height 188 cm [facility] CUTTING TORCH OPERATOR.PROFESSOR OF PHILOSOPHY Work Phone: [facility] 04-29-2022 13:02-0400 Body weight 67.77 kg [facility] CUTTING TORCH OPERATOR.PROFESSOR OF PHILOSOPHY Work Phone: [facility] 04-29-2022 13:02-0400 Diastolic blood pressure 68 mm[Hg] [facility] CUTTING TORCH OPERATOR.PROFESSOR OF PHILOSOPHY Work Phone: [facility] 04-29-2022 13:02-0400 Heart rate 93 /min [facility] CUTTING TORCH OPERATOR.[facility] Work Phone: [facility] 04-29-2022 13:02-0400 SaO2% (BldA) [Mass fraction] 100 % [facility] CUTTING TORCH OPERATOR.PROFESSOR OF PHILOSOPHY Work Phone: [facility] 04-29-2022 13:02-0400 Systolic blood pressure 104 mm[Hg] [facility] CUTTING TORCH OPERATOR.PROFESSOR OF PHILOSOPHY Work Phone: [facility] 07-05-2021 09:32-0400 Body height 184.2 cm [facility] CUTTING TORCH OPERATOR.[facility] Work Phone: [facility] 07-05-2021 09:32-0400 Body weight 65.68 kg [facility] CUTTING TORCH OPERATOR.PROFESSOR OF PHILOSOPHY Work Phone: [facility] 07-05-2021 09:32-0400 Diastolic blood pressure 65 mm[Hg] [facility] CUTTING TORCH OPERATOR.PROFESSOR OF PHILOSOPHY Work Phone: [facility] 07-05-2021 09:32-0400 Heart rate 110 /min [facility] CUTTING TORCH OPERATOR.PROFESSOR OF PHILOSOPHY Work Phone: [facility] 07-05-2021 09:32-0400 SaO2% (BldA) [Mass fraction] 98 % Desialysa Blair CUTTING TORCH OPERATOR.PROFESSOR OF PHILOSOPHY Work Phone: [facility] 07-05-2021 09:32-0400 Systolic blood pressure 95 mm[Hg] Desi Blair CUTTING TORCH OPERATOR.PROFESSOR OF PHILOSOPHY Work Phone: [facility] 09-25-2016 15:20-0400 BMI (Body Mass Index) 21.06 [...] Respiratory Rate 18 /min Jennifer Hickman LPN [facility] Work Phone: 09-25-2016 15:20-0400 Weight 68.49 kg Jennifer Hickman LPN [facility] Work Phone: 05-19-2016 15:29-0400 BMI (Body Mass Index) 21.11 kg/m2 Amada Rice HUMAN RESOURCE INTERN [facility] Work Phone: 05-19-2016 15:29-0400 Body Temperature 98.1 [degF] Amada Rice HUMAN RESOURCE INTERN [facility] Work Phone: 05-19-2016 15:29-0400 BP Diastolic 68 mm[Hg] Amada Rice CMA [facility] Work Phone: 05-19-2016 15:29-0400 BP Systolic 102 mm[Hg] Amada Rice CMA [facility] Work Phone: 05-19-2016 15:29-0400 Height 180.34 cm Amada Rice CMA [facility] Work Phone: 05-19-2016 15:29-0400 Pulse (Heart Rate) 90 /min Amada Rice CMA [facility] Work Phone: 05-19-2016 15:29-0400 Pulse Oximetry 99 % Amada Rice CMA [facility] Work Phone: 05-19-2016 15:29-0400 Respiratory Rate 16 /min [facility] Work Phone: 05-19-2016 15:29-0400 Weight 68.68 kg Amada Rice CMA [facility] Work Phone: 05-19-2016 15:29-0400 Weight 68.67 kg [facility] Work Phone: Encounters Encounter Date Encounter Type Care Provider Facility Start: 08-10-2024 End: 08-11-2024 Telephone encounter Desi García APRN.PROFESSOR OF PHILOSOPHY Work Phone: Endocrinology Comment on above: BMV form Start: 08-10-2024 End: 08-10-2024 ambulatory DANIELLE Mckoy OGDEN Facility:[facility] Start: 08-10-2024 End: 08-10-2024 Patient encounter procedure Desi García APRN.PROFESSOR OF PHILOSOPHY Work Phone: Endocrinology Comment on above: Type 1 diabetes jackelin itus without complication (HCC) (Primary Dx); Insulin pump status; Poor compliance Start: 04-01-2024 End: 04-01-2024 Telephone encounter Desi García CUTTING TORCH OPERATOR.PROFESSOR OF PHILOSOPHY Work Phone: Endocrinology Comment on above: Certificate of Medic al Necessity ([employer]) Start: 10-26-2023 End: 10-27-2023 Telephone encounter Desi García CUTTING TORCH OPERATOR.PROFESSOR OF PHILOSOPHY Work Phone: Endocrinology Comment on above: [employer] Form (RX f or Pump, Diabetic Supplies, and Transmitter/Sensor 4) Start: 09-10-2023 End: 09-10-2023 Emergency department patient visit [facility] Facility:[facility] Start: 05-29-2023 End: 05-29-2023 Patient encounter procedure Desifatmata García CUTTING TORCH OPERATOR.PROFESSOR OF PHILOSOPHY Work Phone: Endocrinology Comment on above: Type 1 diabetes jackelin itus without complication (HCC) (Primary Dx); Insulin pump status; Poor compliance Start: 05-06-2023 Telephone encounter Desi tobin CUTTING TORCH OPERATOR.PROFESSOR OF PHILOSOPHY Work Phone: Endocrinology Comment on above: [employer] FORM Start: 10-23-2022 End: 10-23-2022 Patient encounter procedure Abdirahman Lazaro CUTTING TORCH OPERATOR.PROFESSOR OF PHILOSOPHY Work Phone: [facility] Comment on above: Stomach problems (Pr imary Dx) Start: 05-07-2022 Telephone encounter Aranza ALEMAN Work Phone: [facility] Comment on above: Results Start: 05-06-2022 End: 05-06-2022 Patient encounter procedure Alina Tyler CUTTING TORCH OPERATOR.PROFESSOR OF PHILOSOPHY Work Phone: [facility] Comment on above: Stomach pain (Primar y Dx); Flu-like symptoms; Acute bilateral low back pain without sciatica Start: 2022 Telephone encounter Desi tobin CUTTING TORCH OPERATOR.PROFESSOR OF PHILOSOPHY Work Phone: Endocrinology Comment on above: Forms Start: 04-29-2022 End: 04-29-2022 Patient encounter procedure Desi García CUTTING TORCH OPERATOR.PROFESSOR OF PHILOSOPHY Work Phone: Endocrinology Comment on above: Type 1 diabetes jackelin itus without complication (HCC) (Primary Dx); Insulin pump status; Poor compliance Start: 03-13-2022 Telephone encounter Desi tobin CUTTING TORCH OPERATOR.PROFESSOR OF PHILOSOPHY Work Phone: Endocrinology Comment on above: HCP form ([employer]) Start: 07-05-2021 End: 07-05-2021 Patient encounter procedure Desi García CUTTING TORCH OPERATOR.PROFESSOR OF PHILOSOPHY Work Phone: Endocrinology Comment on above: Type 1 diabetes jackelin itus without complication (HCC) (Primary Dx); Insulin pump status Start: 05-07-2020 End: 05-07-2020 Subsequent hospital visit by physician Raheem [facility] Shivam Work Phone: Radiology Comment on above: Acute pain of right knee [M25.561] Procedures Date Procedure Procedure Detail Performing Clinician Start: 08-10-2024 Hemoglobin A1c/Hemoglobin.total in Blood Desi García CUTTING TORCH OPERATOR.PROFESSOR OF PHILOSOPHY Work Phone: Start: 05-29-2023 Hemoglobin A1c/Hemoglobin.total in Blood Desi García CUTTING TORCH OPERATOR.PROFESSOR OF PHILOSOPHY Work Phone: Start: 05-06-2022 Urnls dip stick/tabl et rgnt auto w/o microscopy Alina Tyler CUTTING TORCH OPERATOR.PROFESSOR OF PHILOSOPHY Work Phone: Start: 04-29-2022 Hemoglobin A1c/Hemoglobin.total in Blood Desi García CUTTING TORCH OPERATOR.PROFESSOR OF PHILOSOPHY Work Phone: Start: 05-07-2020 Radiologic exam knee complete 4/more views Davon Bryant MD Work Phone: Plan of Treatment Date Care Activity Detail Author Start: 09-09-2033 Urine microalbumin profile DTaP,Tdap,Td Vaccine (8 - Td or Tdap) [facility] Start: 11-17-2024 End: 11-17-2024 Patient encounter procedure 11/17/2024 2:15 PM EDT Office Visit Endocrinology [address] [address] Desi García APRN.PROFESSOR OF PHILOSOPHY [address] [address] 3 month follow up Endocrinology Comment on above: 3 month follow up Start: 11-10-2024 Hemoglobin A1c measurement HbA1C [facility] Start: 10-17-2024 Influenza vaccination Influenz a Vaccine (Season Ended) [facility] Start: 08-11-2024 End: 11-10-2024 Comprehensive metabolic 2000 panel - Serum or Plasma COMPREHENSIVE METABOLIC PANEL Lab Routine Type 1 diabetes mellitus without complication (HCC) Expected: 08/11/2024 (Approximate), Expires: 11/10/2024 [facility] Work Phone: Comment on above: Expected: 08/11/2024 (Approximate), Expires: 11/10/2024 Start: 08-11-2024 End: 11-10-2024 Lipid 1996 panel - Serum or Plasma LIPID PANEL, FASTING Lab Routine Type 1 diabetes mellitus without complication (HCC) Expected: 08/11/2024 (Approximate), Expires: 11/10/2024 [facility] Comment on above: Expected: 08/11/2024 (Approximate), Expires: 11/10/2024 Start: 08-11-2024 End: 11-10-2024 Microalbumin/Creatinine [Mass Ratio] in Urine ALBUMIN/CREATININE RATIO, URINE Lab Routine Type 1 diabetes mellitus without complication (HCC) Expected: 08/11/2024 (Approximate), Expires: 11/10/2024 [facility] Comment on above: Expected: 08/11/2024 (Approximate), Expires: 11/10/2024 Start: 08-11-2024 End: 11-10-2024 Thyrotropin [Units/volume] in Serum or Plasma THYROID STIMULATING HORMONE Lab Routine Type 1 diabetes mellitus without complication (HCC) Expected: 08/11/2024 (Approximate), Expires: 11/10/2024 [facility] Comment on above: Expected: 08/11/2024 (Approximate), Expires: 11/10/2024 Start: 10-18-2023 Covid-19 Vaccine ( season) Covid-19 Vaccine () [facility] Start: 10-18-2023 Covid-19 Vaccine ( season) Covid-19 Vaccine () [facility] Start: 10-18-2023 Influenza vaccination [facility] Start: 08-28-2023 Hemoglobin A1c measurement HbA1C [facility] Start: 06-01-2023 End: 08-31-2023 Comprehensive metabolic 2000 panel - Serum or Plasma COMPREHENSIVE METABOLIC PANEL Lab Routine Type 1 diabetes mellitus without complication (HCC) Expected: 06/01/2023 (Approximate), Expires: 08/31/2023 [facility] Work Phone: Comment on above: Expected: 06/01/2023 (Approximate), Expires: 08/31/2023 Start: 06-01-2023 End: 08-31-2023 LIPID PANEL, NONFASTING LIPID PANEL, NONFASTING Lab Routine Type 1 diabetes mellitus without complication (HCC) Expected: 06/01/2023 (Approximate), Expires: 08/31/2023 [facility] Work Phone: Comment on above: Expected: 06/01/2023 (Approximate), Expires: 08/31/2023 Start: 06-01-2023 End: 08-31-2023 Microalbumin/Creatinine [Mass Ratio] in Urine ALBUMIN/CREATININE RATIO, URINE Lab Routine Type 1 diabetes mellitus without complication (HCC) Expected: 06/01/2023 (Approximate), Expires: 08/31/2023 [facility] Work Phone: Comment on above: Expected: 06/01/2023 (Approximate), Expires: 08/31/2023 Start: 06-01-2023 End: 08-31-2023 Thyrotropin [Units/volume] in Serum or Plasma THYROID STIMULATING HORMONE Lab Routine Type 1 diabetes mellitus without complication (HCC) Expected: 06/01/2023 (Approximate), Expires: 08/31/2023 [facility] Work Phone: Comment on above: Expected: 06/01/2023 (Approximate), Expires: 08/31/2023 Start: 05-07-2023 Hepatitis B screening URINE ALBUMIN:CREATININE RATIO [facility] Start: 05-07-2023 Hepatitis B surface antibody level LDL CHOLESTEROL [facility] Start: 04-30-2023 3 comp foot exam completed DIABETIC FOOT EXAM [facility] Start: 04-30-2023 Diabetic foot examination Diabetic Foot Exam [facility] Start: 02-16-2023 Behavioral Health Screening Behavioral Health Screening [facility] Start: 02-16-2023 Depression Assessment Depression Ass essment [facility] Start: 10-17-2022 Covid-19 Vaccine () Covid-19 Vaccine () [facility] Start: 10-17-2022 Influenza vaccination [facility] Start: 08-25-2022 Urine microalbumin profile [facility] Start: 07-30-2022 Hemoglobin A1c measurement HbA1C [facility] Start: 07-30-2022 Hemoglobin A1c/Hemoglobin.total in Blood HBA1C [facility] Start: 05-06-2022 End: 07-06-2022 ALBUMIN/CREAT RATIO RND UR ALBUMIN/CREAT RATIO RND UR Lab Routine Type 1 diabetes mellitus without complication (HCC) Expected: 05/06/2022 (Approximate), Expires: 07/06/2022 [facility] Work Phone: Comment on above: Expected: 05/06/2022 (Approximate), Expires: 07/06/2022 Start: 05-06-2022 End: 07-06-2022 Comprehensive metabolic 2000 panel - Serum or Plasma COMP METABOLIC PANEL Lab Routine Type 1 diabetes mellitus without complication (HCC) Expected: 05/06/2022 (Approximate), Expires: 07/06/2022 [facility] Work Phone: Comment on above: Expected: 05/06/2022 (Approximate), Expires: 07/06/2022 Start: 05-06-2022 End: 07-06-2022 Lipid 1996 panel - Serum or Plasma LIPID PANEL BASIC Lab Routine Type 1 diabetes mellitus without complication (HCC) Expected: 05/06/2022 (Approximate), Expires: 07/06/2022 [facility] Work Phone: Comment on above: Expected: 05/06/2022 (Approximate), Expires: 07/06/2022 Start: 05-06-2022 End: 07-06-2022 Thyrotropin [Units/volume] in Serum or Plasma TSH BLD Lab Routine Type 1 diabetes mellitus without complication (HCC) Expected: 05/06/2022 (Approximate), Expires: 07/06/2022 [facility] Work Phone: Comment on above: Expected: 05/06/2022 (Approximate), Expires: 07/06/2022 Start: 02-16-2022 DEPRESSION ASSESSMENT DEPRESSION ASS ESSMENT [facility] Start: 12-25-2021 3 comp foot exam completed DIABETIC FOOT EXAM [facility] Start: 10-17-2021 Influenza vaccination INFLUENZA (#1) [facility] Start: 09-04-2021 COVID-19 VACCINE (3 - Booster for Pfizer series) COVID-19 VACCINE (3 - Booster for Pfizer series) [facility] Start: 08-03-2021 Hemoglobin A1c/Hemoglobin.total in Blood HBA1C [facility] Start: 07-10-2021 End: 09-09-2021 ALBUMIN/CREAT RATIO RND UR ALBUMIN/CREAT RATIO RND UR Lab Routine Type 1 diabetes mellitus without complication (HCC) Expected: 07/10/2021 (Approximate), Expires: 09/09/2021 [facility] Work Phone: Comment on above: Expected: 07/10/2021 (Approximate), Expires: 09/09/2021 Start: 07-10-2021 End: 09-09-2021 Comprehensive metabolic 2000 panel - Serum or Plasma COMP METABOLIC PANEL Lab Routine Type 1 diabetes mellitus without complication (HCC) Expected: 07/10/2021 (Approximate), Expires: 09/09/2021 [facility] Work Phone: Comment on above: Expected: 07/10/2021 (Approximate), Expires: 09/09/2021 Start: 07-10-2021 End: 09-09-2021 LIPID PANEL BASIC LIPID PANEL BASIC Lab Routine Type 1 diabetes mellitus without complication (HCC) Expected: 07/10/2021 (Approximate), Expires: 09/09/2021 [facility] Work Phone: Comment on above: Expected: 07/10/2021 (Approximate), Expires: 09/09/2021 Start: 07-10-2021 End: 09-09-2021 Thyrotropin [Units/volume] in Serum or Plasma TSH BLD Lab Routine Type 1 diabetes mellitus without complication (HCC) Expected: 07/10/2021 (Approximate), Expires: 09/09/2021 [facility] Work Phone: Comment on above: Expected: 07/10/2021 (Approximate), Expires: 09/09/2021 Start: 06-02-2021 COVID-19 VACCINE (3 - Booster for Pfizer series) COVID-19 VACCINE (3 - Booster for Pfizer series) [facility] Start: 06-02-2021 COVID-19 VACCINE (3 - Pfizer series) COVID-19 VACCINE (3 - Pfizer series) [facility] Start: 09-23-2019 Hepatitis B screening URINE ALBUMIN:CREATININE RATIO [facility] Start: 09-23-2019 Hepatitis B surface antibody level LDL CHOLESTEROL [facility] Start: 2018 ANNUAL PCP TEAM REGULATORY LAW SPECIALIST KATYA DISEASE VISIT ANNUAL PCP TEAM CHRONIC DISEASE VISIT [facility] Start: 2018 Anxiety Screening Anxiety Screening [facility] Start: 2018 [facility]: 2018 HEPATITIS C SCREENING HEPATITIS C [facility] Start: 2018 Hepatitis C screening Hepatitis C [facility] Start: 2018 HIV SCREENING HIV SCREENING [facility] Start: 2018 HIV screening HIV Screening [facility] Start: 09-25-2016 End: 09-25-2016 Appointment Appointment [facility] Work Phone: Start: 09-25-2016 End: 09-25-2016 *CMP Complete Metabolic Panel *CMP Complete Metabolic Panel [facility] Work Phone: Start: 09-25-2016 End: 09-25-2016 *Microalbumin, Creatine Ratio, rand urine *Microalbumin, Creatine Ratio, rand urine [facility] Work Phone: Start: 09-25-2016 End: 09-25-2016 Hemoglobin A1c/Hemoglobin.total mass fraction (Bld) *HgA1C [facility] Work Phone: Start: 05-19-2016 End: 05-19-2016 *CMP Complete Metabolic Panel *CMP Complete Metabolic Panel [facility] Work Phone: Start: 05-19-2016 End: 05-19-2016 *Microalbumin, Creatine Ratio, rand urine *Microalbumin, Creatine Ratio, rand urine [facility] Work Phone: Start: 05-19-2016 End: 05-19-2016 HbA1c *HgA1C [facility] Work Phone: Start: 05-19-2016 End: 05-19-2016 Lipid panel [AGGREGATE] *Lipid Profile [facility] Work Phone: Start: 2016 Meningococcal B Vacc ine (1 of 2 - Standard) Meningococcal B Vaccine (1 of 2 - Standard) [facility] Start: 2016 Meningococcal B Vaccine: Consider Based On Risk (1 of 2 - Patient Seeks Protection) Meningococcal B Vaccine: Consider Based On Risk (1 of 2 - Patient Seeks Protection) [facility] Start: 2016 MENINGOCOCCAL B: Consider based on risk (1 of 2 - Patient Seeks Protection) MENINGOCOCCAL B: Consider based on risk (1 of 2 - Patient Seeks Protection) [facility] Start: 2016 ONE PNEUMOVAX PRIOR TO AGE 65 ONE PNEUMOVAX PRIOR TO AGE 65 [facility] Start: 05-02-2015 HPV Vaccine (1 - Mal e 3-dose series) HPV Vaccine (1 - Male 3-dose series) [facility] Start: 2014 PEDS TO ADULT TRANSITION ANNUAL ASSESSMENT PEDS TO ADULT TRANSITION ANNUAL ASSESSMENT [facility] Start: 2012 Adult depression screening assessment DEPRESSION SCREENING [facility] Start: 2012 PEDS TO ADULT TRANSITION INITIAL DISCUSSION PEDS TO ADULT TRANSITION INITIAL DISCUSSION [facility] Start: 05-02-2011 HPV VACCINE (1 - Mal e 2-dose series) HPV VACCINE (1 - Male 2-dose series) [facility] Start: 2010 Glaucoma screening Dilated Retinal E xam [facility] Start: 2010 Hepatitis C antibody , confirmatory test DILATED RETINAL EXAM [facility] Start: 2010 MENINGOCOCCAL B: Consider based on risk (1 of 2 - Risk Bexsero 2-dose series) MENINGOCOCCAL B: Consider based on risk (1 of 2 - Risk Bexsero 2-dose series) [facility] Start: 2009 HPV VACCINE (1 - Mal e 2-dose series) HPV VACCINE (1 - Male 2-dose series) [facility] Start: 2006 Pneumococcal vaccination [facility] Start: 05-04-2002 PNEUMOCOCCAL (1 - PPSV23 if available, else PCV20) PNEUMOCOCCAL (1 - PPSV23 if available, else PCV20) [facility] Start: 06-29-2001 PNEUMOCOCCAL (1 - PPSV23 if available, else PCV20) PNEUMOCOCCAL (1 - PPSV23 if available, else PCV20) [facility] Start: 06-29-2001 PNEUMOCOCCAL (1 - PPSV23 or PCV20) PNEUMOCOCCAL (1 - PPSV23 or PCV20) [facility] Influenza virus A an d B RNA and SARS-CoV-2 (COVID-19) N gene panel - Respiratory specimen by ANDERS with probe detection COVID WITH FLUA+B, ROUTINE Microbiology Routine Flu-like symptoms Ordered: 05/06/2022 [facility] Work Phone: Comment on above: Ordered: 05/06/2022 [facility] Immunizations Immunization Date Immunization Notes Care Provider Fa [facility] 04-07-2021 COVID-19 vaccine, ag e 12+ yr (PFIZER-BIONTECH - PURPLE TOP) Desi García CUTTING TORCH OPERATOR.PROFESSOR OF PHILOSOPHY Work Phone: [facility] 03-17-2021 COVID-19 vaccine, ag e 12+ yr (PFIZER-BIONTECH - PURPLE TOP) Desi García CUTTING TORCH OPERATOR.PROFESSOR OF PHILOSOPHY Work Phone: [facility] 12-25-2020 influenza, injectabl e, quadrivalent, contains preservative Desi García CUTTING TORCH OPERATOR.PROFESSOR OF PHILOSOPHY Work Phone: [facility] 12-25-2020 influenza virus vacc ine, unspecified formulation Desi García CUTTING TORCH OPERATOR.PROFESSOR OF PHILOSOPHY Work Phone: [facility] 10-01-2017 meningococcal polysaccharide vaccine (MPSV4) Desi García CUTTING TORCH OPERATOR.PROFESSOR OF PHILOSOPHY Work Phone: [facility] 08-25-2012 meningococcal polysaccharide (groups A, C, Y and W-135) diphtheria toxoid conjugate vaccine (MCV4P) Desi Kupiec CUTTING TORCH OPERATOR.[facility] Work Phone: [facility] 08-25-2012 tetanus toxoid, redu josé antonio diphtheria toxoid, and acellular pertussis vaccine, adsorbed Desi Kupiec CUTTING TORCH OPERATOR.[facility] Work Phone: [facility] 11-26-2010 influenza virus vacc ine, unspecified formulation Desi Kupiec CUTTING TORCH OPERATOR.PROFESSOR OF PHILOSOPHY Work Phone: [facility] Work Phone: 03-01-2007 influenza virus vacc ine, unspecified formulation Desi Kupiec CUTTING TORCH OPERATOR.[facility] Work Phone: [facility] Work Phone: 01-05-2006 influenza virus vacc ine, unspecified formulation Desi Kupiec CUTTING TORCH OPERATOR.[facility] Work Phone: [facility] Work Phone: 06-16-2005 diphtheria, tetanus toxoids and acellular pertussis vaccine, unspecified formulation Desi Kupiec CUTTING TORCH OPERATOR.[facility] Work Phone: [facility] 06-16-2005 measles, mumps and rubella virus vaccine Desi Kupiec CUTTING TORCH OPERATOR.[facility] Work Phone: [facility] 06-16-2005 poliovirus vaccine, inactivated Desi Kupiec CUTTING TORCH OPERATOR.[facility] Work Phone: [facility] 04-29-2005 diphtheria, tetanus toxoids and acellular pertussis vaccine, unspecified formulation Desi Kupiec CUTTING TORCH OPERATOR.PROFESSOR OF PHILOSOPHY Work Phone: [facility] 04-29-2005 measles, mumps and rubella virus vaccine Desi Kupiec CUTTING TORCH OPERATOR.[facility] Work Phone: [facility] 04-29-2005 poliovirus vaccine, inactivated Desi Kupiec CUTTING TORCH OPERATOR.[facility] Work Phone: [facility] 03-30-2002 diphtheria, tetanus toxoids and acellular pertussis vaccine, 5 pertussis antigens Desi Kupiec CUTTING TORCH OPERATOR.PROFESSOR OF PHILOSOPHY Work Phone: [facility] 03-30-2002 varicella virus vaccine Heraclio fly Kupiec CUTTING TORCH OPERATOR.PROFESSOR OF PHILOSOPHY Work Phone: [facility] 05-04-2001 haemophilus influenz ae type b vaccine, PRP-T conjugate Desi Kupiec CUTTING TORCH OPERATOR.PROFESSOR OF PHILOSOPHY Work Phone: [facility] 05-04-2001 measles, mumps and rubella virus vaccine Desi Kupiec CUTTING TORCH OPERATOR.PROFESSOR OF PHILOSOPHY Work Phone: [facility] 05-04-2001 pneumococcal conjuga te vaccine, 13 valent Desi Kupiec CUTTING TORCH OPERATOR.[facility] Work Phone: [facility] 2000 diphtheria, tetanus toxoids and acellular pertussis vaccine, 5 pertussis antigens Desi Kupiec CUTTING TORCH OPERATOR.PROFESSOR OF PHILOSOPHY Work Phone: [facility] 2000 haemophilus influenz ae type b vaccine, PRP-T conjugate Desi Kupiec CUTTING TORCH OPERATOR.PROFESSOR OF PHILOSOPHY Work Phone: [facility] 2000 hepatitis B vaccine, pediatric or pediatric/adolescent dosage Desi Kupiec CUTTING TORCH OPERATOR.[facility] Work Phone: [facility] 2000 pneumococcal conjuga te vaccine, 13 valent Desi Kupiec CUTTING TORCH OPERATOR.PROFESSOR OF PHILOSOPHY Work Phone: [facility] 2000 poliovirus vaccine, inactivated Desi Kupiec CUTTING TORCH OPERATOR.PROFESSOR OF PHILOSOPHY Work Phone: [facility] 2000 diphtheria, tetanus toxoids and acellular pertussis vaccine, 5 pertussis antigens Desi Kupiec CUTTING TORCH OPERATOR.[facility] Work Phone: [facility] 2000 haemophilus influenz ae type b vaccine, PRP-T conjugate Desi Kupiec CUTTING TORCH OPERATOR.[facility] Work Phone: [facility] 2000 pneumococcal conjuga te vaccine, 13 valent Desi Kupiec CUTTING TORCH OPERATOR.PROFESSOR OF PHILOSOPHY Work Phone: [facility] 2000 poliovirus vaccine, inactivated [facility] CUTTING TORCH OPERATOR.[facility] Work Phone: [facility] 2000 diphtheria, tetanus toxoids and acellular pertussis vaccine, 5 pertussis antigens [facility] CUTTING TORCH OPERATOR.PROFESSOR OF PHILOSOPHY Work Phone: [facility] 2000 haemophilus influenz ae type b vaccine, PRP-T conjugate [facility] CUTTING TORCH OPERATOR.PROFESSOR OF PHILOSOPHY Work Phone: [facility] 2000 hepatitis B vaccine, pediatric or pediatric/adolescent dosage [facility] CUTTING TORCH OPERATOR.PROFESSOR OF PHILOSOPHY Work Phone: [facility] 2000 pneumococcal conjuga te vaccine, 13 valent [facility] CUTTING TORCH OPERATOR.PROFESSOR OF PHILOSOPHY Work Phone: [facility] 2000 poliovirus vaccine, inactivated [facility] CUTTING TORCH OPERATOR.[facility] Work Phone: [facility] 2000 hepatitis B vaccine, pediatric or pediatric/adolescent dosage [facility] CUTTING TORCH OPERATOR.[facility] Work Phone: [facility] Payers Date Payer Category Payer Self-pay 2018 [employer] BLUE CARD PPO OOS [id number] 2018 Unknown [employer] BLUE CARD PPO OOS [id number] 2018-Present [phone] [address] [place] [address] PPO [id number] 2018 Unknown [employer] BLUE CARD PPO OOS [id number] 2018-Present [phone] [address] [place] [address] PPO [id number] 2018 Unknown [id number] Unknown [id number] Social History Date Type Detail Facility Start: 09-16-2010 End: 04-29-2022 Tobacco smoking status NHIS Never smoked tobacco [facility] Start: 07-05-2021 End: 08-10-2024 Alcohol intake Ex-drinker (finding) [facility] Start: 2000 Sex Assigned At Not on file [facility] Start: 04-07-2020 End: 07-05-2021 Exposure to SARS-CoV-2 (event) Not sure [facility] Start: 09-16-2010 End: 04-29-2022 Tobacco use and exposure Smokeless tobacco non-user [facility] Work Phone: Start: 10-23-2022 End: 05-29-2023 History of Social function [facility] Start: 10-23-2022 End: 05-29-2023 Tobacco use panel [facility] National Score (1-100), lower number is lower risk 68 [facility] Medical Equipment Procedure Code Equipment Code Equipment Original Text Equipment Identifier Dates [id number], [id number], [id number] Start: 11-03-2019 End: 08-10-2024 Comment on above: [...] 5:01 PM EDT Swetha Singh LPN No [facility] 08-16-2014 Are you blind, or do you have serious difficulty seeing, even when wearing glasses No 08/16/2014 5:01 PM EDT Swetha Singh LPN No [facility] 08-16-2014 Do you have serious difficulty walking or climbing stairs No 08/16/2014 5:01 PM EDT Swetha Singh LPN No [facility] 08-16-2014 Do you have difficul ty dressing or bathing No 08/16/2014 5:01 PM EDT Swetha Singh LPN No [facility] Mental Status Date Assessment Result Facility 08-16-2014 Because of a physica l, mental, or emotional condition, do you have serious difficulty concentrating, remembering, or making decisions No 08/16/2014 5:01 PM EDT Swetha Singh LPN No [facility] Clinical Notes 05-07-2020 to 08-11-2024 Telephone Encounter - Katerina Crawford RN - 08/11/2024 1:09 PM EDTTelephone Encounter - Katerina Crawford RN - 08/11/2024 1:09 PM EDTPatient InstructionsPatient Instructions Note Date & Type Note Facility 08-11-2024 Telephone encounter Note BMV form faxed to the [facility]. Copy made and sent to scanning and another copy was made an put in our file. Closed [facility] 08-11-2024 Miscellaneous Notes BMV form faxed to the [facility]. Copy made and sent to scanning and another copy was made an put in our file. Closed [facility] form completed. Please fax to [facility]. Keep a copy for EMR Thank you documented in this encounter [facility] 08-10-2024 Telephone encounter Note [facility] form completed. Please fax to [facility]. Keep a copy for EMR Thank you [facility] 08-10-2024 Instructions Desi García APRN.CNP - 08/10/2024 11:26 AM EDT Pump settings. 00:00= 1.10 0600=1.20 2330=1.40 Bolus: Insulin:carb ratio 00:00= 10 1030=10 1400=8 Sensitivity 00:00= 60 Blood glucose target 00:00= 302-498 2281= 100-120 Insulin duration= 3 hr Labs in the next 2 wks Contact [email or web address] about upgrading to the 780 pump and Guardian 4 CGM Have a copy of the eye exam sent to us. Follow up in 3 months Desi García, MSN, CUTTING TORCH OPERATOR, APPAREL RENTAL CLERK-C, [facility] Endocrinology [facility] Medical Office [facility]/[address], [address] [place] [address] Fax: documented in this encounter [facility] 08-10-2024 Note HNO ID: [id number] Author: NERISSA RUIZ MA Service: ? Author Type: Scraper Loader Operator Type: Procedures Filed: 08/10/2024 12:44 Note Text: [facility] 08-10-2024 Procedure note Procedure(s): EXTERNAL DIRECTOR OF CREATIVE SERVICES, CGM SYS Images from the original note were not included. [facility] 08-10-2024 Procedure note Procedure(s): EXTERNAL DIRECTOR OF CREATIVE SERVICES, CGM SYS Images from the original note were not included. documented in this encounter [facility] 08-10-2024 History of Presen t illness Narrative Reason for Consultation: DM Type 1 Referring Physician: Doris Victoria APRN.PROFESSOR OF PHILOSOPHY [address] [address] HISTORY OF PRESENT ILLNESS Mr. Castro is [...] exam in the last. Denies retinopathy. 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 Notes lower [...] Sensitivity 00:00= 60 Blood glucose target 00:00= 906-363 5172= 100-120 Insulin duration= 3 hr Pump download [...] IDDM, E 10.9 150 Strip 11 Insulin Wiley, Disposable, (BD ULTRAFINE III MINI PEN) 31 gauge x 3/16 Use one daily with insulin if insulin pump fails 50 Each 1 insulin glargine (BASAGLAR KWIKPEN U-100 INSULIN) 100 unit/mL (3 mL) Inject 26 units subcutaneously daily if insulin pump fails 15 mL 1 glucagon (BAQSIMI) 3 mg/actuation nasal spray Use 1 Shepherd in the nose as needed for low [...] U-100 INSULIN) 100 unit/mL (3 mL), Insulin Wiley, Disposable, (BD ULTRAFINE III MINI PEN) 31 gauge x 3/16, Lancets, NOVOLOG U-100 INSULIN ASPART 100 unit/mL Check BG 4x per day and enter into the pump Bolus/correct for BG readings using the bolus wizard. Change pump site every 3 days. Pump settings. 00:00= 1.10 0600=1.20 2330=1.40 Bolus: Insulin:carb ratio 00:00= 10 1030=10 1400=8 Sensitivity 00:00= 60 Blood glucose target 00:00= 533-991 9126= 100-120 Insulin duration= 3 hr Labs in [...] Level: 4 - Moderate Desi García, MSN, CUTTING TORCH OPERATOR, APPAREL RENTAL CLERK-C, [facility] Endocrinology [facility] Medical Office [facility]/[address], [address] [place] [address] Fax: documented in this encounter [facility] 08-10-2024 Note HNO ID: [id number] Author: DESI GARCÍA APRN.PROFESSOR OF PHILOSOPHY Service: ? Author Type: Nurse Practitioner Type: Progress Notes Filed: 08/10/2024 12:44 Note Text: Reason for Consultation: DM Type 1 Referring Physician: Doris Victoria APRN.PROFESSOR OF PHILOSOPHY [address] [address] HISTORY OF PRESENT ILLNESS Mr. Castro is [...] exam in the last. Denies retinopathy. 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 Notes lower BG overnight. Sleep 6-7 AM to 2-3 pm. Working 10 pm to 6 AM. Current diabetes regimen is as follows: Basal insulin for back up:basaglar Glucagon: yes Novolog via [employer] 770 pump with Guardian 3 CGM --not using CGM CGM Pump settings. 00:00= 1.20 2330=1.40 Bolus: Insulin:carb ratio 00:00= 10 1030=10 1400=8 Sensitivity 00:00= 60 Blood glucose target 00:00= 035-881 4730= 100-120 Insulin duration= 3 hr Pump download [...] IDDM, E 10.9 150 Strip 11 Insulin Wiley, Disposable, (BD ULTRAFINE III MINI PEN) 31 gauge x 3/16 Use one daily with insulin if insulin pump fails 50 Each 1 insulin glargine (BASAGLAR KWIKPEN U-100 INSULIN) 100 unit/mL (3 mL) Inject 26 units subcutaneously daily if insulin pump fails 15 mL 1 glucagon (BAQSIMI) 3 mg/actuation nasal spray Use 1 Shepherd in the nose as needed for low [...] Date Value 08/17/2014 (more content not included)... [facility] 04-01-2024 Telephone encounter Note Form faxed to [employer] at on April 01, 2024; transmission ok. [facility] 04-01-2024 Miscellaneous Notes Form faxed to [employer] at on April 01, 2024; transmission ok. Form signed. Thank you Form on docs desk/basket for review from: [employer] Please review and sign. Needs to be faxed to: [phone] Last office notes attached. documented in this encounter [facility] 04-01-2024 Telephone encounter Note Form signed. Thank you [facility] 04-01-2024 Telephone encounter Note Form on docs desk/basket for review from: [employer] Please review and sign. Needs to be faxed to: [phone] Last office notes attached. [facility] 10-27-2023 Telephone encounter Note Form Faxed, Transmission ok CLOSED [facility] 10-27-2023 Miscellaneous Notes Form Faxed, Transmission ok CLOSED Form signed. Thank you Form on docs desk/basket for review from [employer]. Please review and sign. Needs to be faxed to [phone]. Attached last office notes. RX for Pump, Diabetic Supplies, and Transmitter/Sensor 4 documented in this encounter [facility] 10-27-2023 Telephone encounter Note Form signed. Thank you [facility] 10-26-2023 Telephone encounter Note Form on docs desk/basket for review from [employer]. Please review and sign. Needs to be faxed to [phone]. Attached last office notes. RX for Pump, Diabetic Supplies, and Transmitter/Sensor 4 [facility] 05-29-2023 History of Presen t illness Narrative Reason for Consultation: DM Type 1 Referring Physician: Doris Victoria APRN.PROFESSOR OF PHILOSOPHY [address] [address] HISTORY OF PRESENT ILLNESS Mr. Castro is [...] Sensitivity 00:00= 60 Blood glucose target 00:00= 577-558 7932= 100-120 Insulin duration= 3 hr Pump download [...] Outpatient Medications Medication Sig Dispense Refill Insulin Wiley, Disposable, (BD ULTRAFINE III MINI PEN) 31 [...] (BAQSIMI) 3 mg/actuation nasal spray Use 1 Shepherd in the nose as needed for low [...] the pump as required. Reviewed short and alf consequences of hyperglycemia. Seems to come in [...] Copy kept for EMR Desi García, MSN, CUTTING TORCH OPERATOR, APPAREL RENTAL CLERK-C, CDE Endocrinology [facility] Medical Office [facility]/[address], [address] [place], [place] [address] Fax: documented in this encounter [facility] 05-07-2023 Miscellaneous Notes Form faxed to: [phone] Confirmation fax received. Transmission successful. Form signed. Thank you Form on docs desk/basket for review from [employer]. Please review and sign. Needs to be faxed to FOR: PRESCRIPTION FOR PUMP SUPPLIES documented in this encounter [facility] 10-23-2022 History of Presen t illness Narrative [...] Patient has no known allergies. MEDICATIONS Insulin Wiley, Disposable, (BD ULTRAFINE III MINI PEN) 31 [...] (BAQSIMI) 3 mg/actuation nasal spray Use 1 Shepherd in the nose as needed for low [...] to ER for severe/worsening s/s. Abdirahman Willis APRN.PROFESSOR OF PHILOSOPHY documented in this encounter [facility] 05-07-2022 Miscellaneous Notes Left message for patient with negative results.Maren Steinberg LPN Negative for COVID and flu documented in this encounter [facility] 05-06-2022 Instructions Alina Tyler APRN.CNP - 05/06/2022 [...] Protein: trace pH: 6.0 Blood: negative Specific Eden: 1,025 Ketones: negative Bilirubin: negative Glucose: trace, 1/10 = 100 - encouraged to have labs completed today that were ordered by speech pathologist last week. - Follow-up with your PCP in 3-5 days if symptoms have not improved or sooner if symptoms worsen - Discussed red flags and need for immediate medical evaluation if any occur. - Discussed supportive care treatment with fluids, rest and analgesia. - Discussed expected course of illness Alina Tyler APRN.CNP documented in this encounter [facility] 05-06-2022 History of Presen t illness Narrative [...] Patient has no known allergies. MEDICATIONS Insulin Wiley, Disposable, (BD ULTRAFINE III MINI PEN) 31 [...] (BAQSIMI) 3 mg/actuation nasal spray Use 1 Shepherd in the nose as needed for low [...] Protein: trace pH: 6.0 Blood: negative Specific Eden: 1,025 Ketones: negative Bilirubin: negative Glucose: trace, 02/25 = 100 - encouraged to have labs completed today that were ordered by speech pathologist last week. - Follow-up with your PCP in 3-5 days if symptoms have not improved or sooner if symptoms worsen - Discussed red flags and need for immediate medical evaluation if any occur. - Discussed supportive care treatment with fluids, rest and analgesia. - Discussed expected course of illness Alina Tyler APRN.CNP documented in this encounter [facility] 05-02-2022 Miscellaneous Notes BMV form faxed, Transmission ok Copy sent for scanning. Patient aware CLOSED Form completed. Please keep a copy to scan to EMr. Thank you Type of form: Statement of Physician/BMV Form received via walk in When form is completed, Fax form to BMV Form has been forwarded to SUMIT Smith documented in this encounter [facility] 04-29-2022 Instructions Desi García APRN.CNP - 04/29/2022 1:20 PM EDT Have labs done this week or next fasting. 2. Start using the sensor and try auto mode. 3. Have a copy of your eye exam sent to use. 4. Check sugars 3-4x per day and enter into the pump. 5. Follow up in 4-6 wks 6. Send in BMV paperwork. Desi García, MSN, CUTTING TORCH OPERATOR, APPAREL RENTAL CLERK-C, CDE Endocrinology [facility] Medical Office [facility]/[address] [address] Fax: documented in this encounter [facility] 04-29-2022 History of Presen t illness Narrative Reason for Consultation: DM Type 1 Referring Physician: Doris Victoria APRN.PROFESSOR OF PHILOSOPHY [address] [place] [id number] HISTORY OF PRESENT ILLNESS Mr. Castro is [...] Sensitivity 00:00= 60 Blood glucose target 00:00= 444-322 9299= 100-120 Insulin duration= 3 hr Pump download [...] Reported on 04/29/2022) 15 mL 1 Insulin Wiley, Disposable, (BD ULTRAFINE III MINI PEN) 31 [...] TSH BLD, ALBUMIN/CREAT RATIO RND UR, Insulin Wiley, Disposable, (BD ULTRAFINE III MINI PEN) 31 [...] which included preparing to see the patient, [id number] patient care, completing clinical documentation, obtaining and/or reviewing separately obtained history, performing a medically appropriate examination, counseling and educating the patient/family/caregiver, ordering medications, tests, or procedures, and communicating results to the patient/family/caregiver. Desi García, MSN, CUTTING TORCH OPERATOR, APPAREL RENTAL CLERK-C, CDE Endocrinology [facility] Medical Office [facility]/[address] [place] [address] Fax: documented in this encounter [facility] 03-13-2022 Miscellaneous Notes Form faxed, Transmission ok CLOSED LV 07/05/21. No follow up is scheduled. I did sign the form. Please contact patient to set up follow up Thank you Type of letter/form/fax request: HCP Form Form received from:[employer] Placed on Provider (HOUSTON García)for completion Completed form needs to be faxed to [phone] documented in this encounter [facility] 07-05-2021 Instructions Desi García APRN.[place] - 07/05/2021 9:53 AM EDT Pump settings. 00:00= 1.20 2330=1.40 Bolus: Insulin:carb ratio 00:00= 10 1030=10 1400=8 Sensitivity 00:00= 60 Blood glucose target 00:00= 091-189 2090= 100-120 Insulin duration= 3 hr Have a copy of your eye exam sent to us. Have labs done in the next 2 wks. Follow up in 2 months. Desi García, MSN, VAIBHAV, APPAREL RENTAL CLERK-C, CDE Endocrinology [facility] Medical Office [facility]/[place] [address] Fax: documented in this encounter [facility] 07-05-2021 History of Presen t illness Narrative Reason for Consultation: DM Type 1 Referring Physician: Doris Victoria APRN.PROFESSOR OF PHILOSOPHY [address] [place] [id number] HISTORY OF PRESENT ILLNESS Mr. Castro is a 21 year old male presenting here today for a follow up of DM Type 1. As I recall, he was initially diagnosed with diabetes 2004 (age 5). LV 05/03/21 A1C 12.2 on 05/03/21 Interval visit due to poor glucose control. States he and his mom tried to call [employer] about a new pump and CGM but [...] Sensitivity 00:00= 60 Blood glucose target 00:00= 715-855 3652= 100-120 Insulin duration= 3 hr Pump download: [...] insulin pump fails 15 mL 1 Insulin Wiley, Disposable, (BD ULTRAFINE III MINI PEN) 31 [...] Sensitivity 00:00= 60 Blood glucose target 00:00= 108-623 3258= 100-120 Insulin duration= 3 hr Have a [...] which included preparing to see the patient, [id number]-gjvv patient care, completing clinical documentation, obtaining and/or reviewing separately obtained history, performing a medically appropriate examination, counseling and educating the patient/family/caregiver and ordering medications, tests, or procedures. Desi García, MSN, CUTTING TORCH OPERATOR, APPAREL RENTAL CLERK-C, CDE Endocrinology [facility] Medical Office [facility]/[address] [place] [address] Fax: documented in this encounter [facility] 05-07-2020 History of Presen t illness Narrative [...] 2020 8:07 PM documented in this encounter [facility] Evaluation note Diagnosis Type 1 diabetes mellitus [...] hazards to health [facility] [place] Diagnosis Stomach pain- Primary Dyspepsia and other specified disorders of function of stomach Flu-like symptoms Other general symptoms Acute bilateral low back pain without sciatica documented in this encounter [facility] note* Diagnosis Stomach problems- Primary Unspecified functional disorder of stomach documented in this encounter [facility] note* Diagnosis Type 1 diabetes mellitus without complication (HCC)- Primary Type I (juvenile type) diabetes mellitus without mention of complication, not stated as uncontrolled Insulin pump status Poor compliance Personal history of noncompliance with medical treatment, presenting hazards to health documented in this encounter [facility] note* Diagnosis Acute pain of right knee documented in this encounter [facility] note* Diagnosis Type 1 diabetes mellitus without complication (HCC)- Primary Type I (juvenile type) diabetes mellitus without mention of complication, not stated as uncontrolled Insulin pump status Poor compliance Personal history of noncompliance with medical treatment, presenting hazards to health documented in this encounter [facility] Reason for Referral Specialty Diagnoses / Procedures Referred By Caroline fonseca Referred To Contact Diagnoses Type 1 diabetes mellitus without complication (HCC) Desi García APRN.[facility] [address] [address] Referral ID Status Reason Start Date Expiration Date Visits Re quested Visits Authorized [id number] Closed 1 1 Summary Purpose Family History [...] or prosecute any alcohol or drug abuse patient.[facility] the event this information is protected by the Federal Confidentiality of Alcohol and Drug Abuse Patient Records regulations: The Federal rules restrict any use of the information to criminally investigate or prosecute any alcohol or drug abuse patient.[facility] the event this information is protected by the Federal Confidentiality of Alcohol and Drug Abuse Patient Records regulations: The Federal rules restrict any use of the information to criminally investigate or prosecute any alcohol or drug abuse patient.[facility] the event this information is protected by the Federal Confidentiality of Alcohol and Drug Abuse Patient Records regulations: The Federal rules restrict any use of the information to criminally investigate or prosecute any alcohol or drug abuse patient.[facility] System[facility] the event this information is protected by the Federal Confidentiality of Alcohol and Drug Abuse Patient Records regulations: The Federal rules restrict any use of the information to criminally investigate or prosecute any alcohol or drug abuse patient.[facility] System[facility] the event this information is protected by the Federal Confidentiality of Alcohol and Drug Abuse Patient Records regulations: The Federal rules restrict any use of the information to criminally investigate or prosecute any alcohol or drug abuse patient.[facility] System[facility] the event this information is protected by the Federal Confidentiality of Alcohol and Drug Abuse Patient Records regulations: The Federal rules restrict any use of the information to criminally investigate or prosecute any alcohol or drug abuse patient.[facility] System[facility] the event this information is protected by the Federal Confidentiality of Alcohol and Drug Abuse Patient Records regulations: The Federal rules restrict any use of the information to criminally investigate or prosecute any alcohol or drug abuse patient.[facility] System[facility] the event this information is protected by the Federal Confidentiality of Alcohol and Drug Abuse Patient Records regulations: The Federal rules restrict any use of the information to criminally investigate or prosecute any alcohol or drug abuse patient.[facility] System[facility] the event this information is protected by the Federal Confidentiality of Alcohol and Drug Abuse Patient Records regulations: The Federal rules restrict any use of the information to criminally investigate or prosecute any alcohol or drug abuse patient.[facility] System[facility] the event this information is protected by the Federal Confidentiality of Alcohol and Drug Abuse Patient Records regulations: The Federal rules restrict any use of the information to criminally investigate or prosecute any alcohol or drug abuse patient.[facility] System[facility] the event this information is protected by the Federal Confidentiality of Alcohol and Drug Abuse Patient Records regulations: The Federal rules restrict any use of the information to criminally investigate or prosecute any alcohol or drug abuse patient.[facility] System[facility] the event this information is protected by the Federal Confidentiality of Alcohol and Drug Abuse Patient Records regulations: The Federal rules restrict any use of the information to criminally investigate or prosecute any alcohol or drug abuse patient.[facility] System[facility] the event this information is protected by the Federal Confidentiality of Alcohol and Drug Abuse Patient Records regulations: The Federal rules restrict any use of the information to criminally investigate or prosecute any alcohol or drug abuse patient.[facility] Reason for Visit (unrecogniz ed section and [...] Care Teams (unrecognized sec tion and content) Sales Development Specialist Relationship Specialty Start Date End Date Danielle Paredes MD [address] [place] [phone] PCP - General Family Practice 03/08/19 Sales Development Specialist Relationship Specialty Start Date End Date Danielle Paredes MD [address] [place] [address] [phone] PCP - General Family Medicine 03/08/19 Sales Development Specialist Relationship Specialty Start Date End Date Danielle Paredes MD [address] [place] [phone] PCP - General Family Medicine 03/08/19 Sales Development Specialist Relationship Specialty Start Date End Date Danielle Paredes MD [address] [place] [address] PCP - General Family Medicine 03/08/19 Sales Development Specialist Relationship Specialty Start Date End Date Danielle Paredes MD [address] [place] [address] PCP - General Family Medicine 03/08/19 Sales Development Specialist Relationship Specialty Start Date End Date Danielle Paredes MD [address] [place] [address] PCP - General Family Medicine 03/08/19 Sales Development Specialist Relationship Specialty Start Date End Date Danielle Paredes MD [address] [place] [address] PCP - General Family Medicine 03/08/19 Sales Development Specialist Relationship Specialty Start Date End Date Danielle Paredes MD [address] [place] [address] PCP - General Family Medicine 03/08/19 Sales Development Specialist Relationship Specialty Start Date End Date Danielle Paredes MD [address] [place] [address] PCP - General Family Medicine 03/08/19 Sales Development Specialist Relationship Specialty Start Date End Date Danielle Paredes MD [address] [place] [address] PCP - General Family Medicine 03/08/19 Sales Development Specialist Relationship Specialty Start Date End Date Danielle Paredes MD [address] [place] [address] PCP - General Family Medicine 03/08/19 Sales Development Specialist Relationship Specialty Start Date End Date Danielle Paredes MD [address] [place] [address] PCP - General Family Medicine 03/08/19 Sales Development Specialist Relationship Specialty Start Date End Date Danielle Paredes MD [address] [facility] [address] [place] [address] PCP - General Family Medicine 03/08/19 (unrecognized sect ion and content) No Status Records FoundNo Status Records Found INFORMATION SOURCE (unrecogn ized section and content) DATE CREATED AUTHOR 09/27/2023 [facility] DATE CREATED AUTHOR '[facility] 08/11/2024 [facility] FOR RECORDS PERTAINING TO PATIENTS WHO ARE [...] BE BASED ON THE PRIMARY CLINICAL RECORDS. [employer] provides no warranty or guarantee of the accuracy or completeness of information in this document.
[2024-09-26 01:48] LABS: AST(SGOT) 20 U/L (<=37); Alanine Aminotransfer ALT/SGPT 18 U/L (<=46); Albumin, Serum 4.7 g/dL (3.5-5.0); Alkaline Phosphatase 91 U/L (40-129); Anion Gap 12 (5-15); BUN 14 mg/dL (4-19); BUN/Creat Ratio 16.1 RATIO (10-20); Calcium,Total 9.8 mg/dL (7.6-11.0); Carbon Dioxide 23.5 mmol/L (21.0-32.0); Chloride 100 mmol/L (98-108); Estimated Creatinine Clearance 125.95 ml/min (50-250); Globulin 2.8 g/dL (2.2-4.2); Glucose 365 mg/dL (70-99); Lipase 13 U/L (13-75); Potassium 3.9 mmol/L (3.3-5.1)
[2024-09-26 02:00] VITALS: BP 118/60; PULSE 82; RESP 16; O2SAT 100
[2024-09-26 02:29] LABS: Mucous, Urine 0 SEEN /hpf (<or=2+)
[2024-09-26 02:35] LABS: Color, Urine Straw (Yellow); Glucose, Dipstick 1000 mg/dl (Normal); Ketone-Dipstick Negative (Negative); Leukocyte Esterase-Dipstick Negative /ul (Negative); Nitrite-Dipstick Negative (Negative); Occult Blood-Urine Negative /ul (Negative); Protein-Dipstick 30 mg/dl (Negative); Specific Gravity, Urine 1.010 (1.002-1.030); Urine Bilirubin Dipstick Negative (Negative)
[2024-09-26 02:44] LABS: Red Blood Cells-Urine 0-5 SEEN /hpf (0-5); Squamous Epithelial Cells - UA 0-5 SEEN /hpf (0-5)
[2024-09-26 02:45] VITALS: BP 116/66; PULSE 82; RESP 18; TEMP 36.7; O2SAT 98
== END 2024-09-26 02:48 | disposition home or self-care (01) ==
PROVIDERS: Emergency Provider Student in an Organized Health Care Education/Training Program; PCP Family Medicine; Visit Provider Student in an Organized Health Care Education/Training Program
DX: R10.11 Right upper quadrant pain (principal); E10.65 Type 1 diabetes mellitus with hyperglycemia; Z79.4 Long term (current) use of insulin; F17.290 Nicotine dependence, other tobacco product, uncomplicated
CPT/HCPCS: 74177; 80053; 81001; 83690; 85025; 96361; 96374; 99284; Q9967; A4216; J2405